=== PATIENT | female | born 1945 | race Caucasian/White ===

== ENCOUNTER → 2017-11-15 | Outpatient (CLI) | payer MEDICARE, OTHER ==
--- NOTE | 2017-11-15 13:42 | CT ---
EXAMINATION TYPE: CT brain wo/w con DATE OF EXAM: 11/15/2017 COMPARISON: NONE HISTORY: Patient complains of headaches. Syncope CT DLP: 2027 mGycm Automated Exposure Control for Dose Reduction was Utilized. TECHNIQUE: CT scan of the head is performed with IV contrast.,CT scan of the head is performed withou t and with with IV Contrast, patient injected with 80 mL of Isovue 300. FINDINGS: Noncontrast images show no acute intracranial hemorrhage or midline shift. Right frontal bony exostoses versus densely calcified, less likely extra-axial small meningioma is seen on the righ t in the extradural space on series 4 and series 3 image 38 measuring 7 mm. On noncontrast images there are patchy areas of hypoattenuation within the subcortical periventricula r white matter. There is also symmetric prominence of the ventricular system and peripheral sulci mos t compatible with age-related volume loss. Small intrafalcine lipoma is seen anteriorly. No evidence of acute infarct or midline shift is noted. Prominent perivascular spaces are seen at the level of th e inferior basal ganglia. On enhanced images there is subtle enhancement of the right frontal lobe on series 7 image 26 measuri ng 4 mm that may relate to apposition of adjacent odom matter or subcortical lesion. MRI is recommend ed for further evaluation. Within the remainder of the brain parenchyma no suspicious abnormal intrac ranial enhancement is seen. Minimal mucosal thickening is seen within the ethmoid sinuses. The globes are intact and the remaining visualized sinuses are clear. IMPRESSION: 1. No evidence of acute intracranial hemorrhage, midline shift or mass effect. 2. Punctate 4 mm focus of enhancement within the right frontal lobe that could be artifact related to apposition of adjacent odom matter or could relate to subcortical lesion therefore enhanced MRI is r ecommended for further evaluation. 3. Nonspecific white matter change, most commonly related to sequela of microangiopathy.
== END | disposition home or self-care (01) ==
LOC: RADCTMAIN 12:03
PROVIDERS: ATTEND Family Medicine
DX: R94.02 Abnormal brain scan (principal); R90.89 Other abnormal findings on diagnostic imaging of central nervous system; R55 Syncope and collapse
CPT/HCPCS: 82565; 84520; 70470; 36415; Q9967

== ENCOUNTER → 2017-12-11 | Outpatient (CLI) | payer MEDICARE, OTHER ==
--- NOTE | 2017-12-11 12:56 | MR ---
EXAMINATION TYPE: MR brain wo/w con DATE OF EXAM: 12/11/2017 COMPARISON: NONE HISTORY: Syncope, falling, headaches TECHNIQUE: Multiplanar, multisequence images of the brain and brainstem is performed without and with IV contras t, utilizing 9 mL intravenous Gadavist . FINDINGS: Diffusion weighted images demonstrate no evidence of a recent infarct or other diffusion ab normality. No midline shift. No enhancing mass. There are a few scattered areas of abnormal signal the white mat ter which are nonspecific. Changes of chronic sinusitis noted. Midline structures demonstrate normal morphology. The craniocerv ical junction appears within normal limits. Post contrast images demonstrate no abnormal enhancement . The dural venous sinuses appear patent. IMPRESSION: 1. Very mild nonspecific white matter changes most likely the basis of remote microvascular ischemia.
== END ==
LOC: RADMRIMAIN 11:15
PROVIDERS: ATTEND Family Medicine
DX: R90.82 White matter disease, unspecified (principal); R55 Syncope and collapse; R51 Headache
CPT/HCPCS: 82565; 84520; 70553; 36415; A9581

== ENCOUNTER → 2018-03-28 | Outpatient (CLI) | payer MEDICARE, OTHER ==
--- NOTE | 2018-03-29 13:15 | US ---
EXAMINATION TYPE: US transvaginal DATE OF EXAM: 03/28/2018 COMPARISON: NONE CLINICAL HISTORY: N93.9 VAGINAL BLEEDING. Off and on 1 year pt age 72 not able to see well, lots of bowel peristalsis limited visualization of pelvis structures TECHNIQUE: Transvaginal (TV). Date of LMP: pt age 72, years ago EXAM MEASUREMENTS: Uterus: 3.3 x 1.4 x 2.5 cm Endometrial Stripe: 0.9 cm Right Ovary: not seen Left Ovary: not seen 1. Uterus: Anteverted Obscured by overlying bowel gas 2. Endometrium: thick 3. Right Ovary: Obscured by overlying bowel gas 4. Left Ovary: Obscured by overlying bowel gas 5. Bilateral Adnexa: Obscured by overlying bowel gas 6. Posterior cul-de-sac: wnl IMPRESSION: Exam is limited. Suspect thickened endometrial stripe. Recommend CORK WIRER consult. A Yellow level critical message alert has been initiated for Osvaldo Sue DO via the [employer] Critical Results System on 03/29/2018 1:12 PM. This message alert has been sent to Osvaldo schulte DO via the preferences provided by the clinician for the receipt of Radiology Critical Findings. Message ID [id number].
== END | disposition home or self-care (01) ==
LOC: RADUSWWP 16:51
PROVIDERS: ATTEND Family Medicine
DX: N93.9 Abnormal uterine and vaginal bleeding, unspecified (principal)
CPT/HCPCS: 76830

== ENCOUNTER → 2019-02-06 | Outpatient (CLI) | payer MEDICARE, OTHER ==
--- NOTE | 2019-02-06 12:19 | XR ---
EXAMINATION TYPE: XR foot complete LT DATE OF EXAM: 02/06/2019 COMPARISON: NONE HISTORY: Pain TECHNIQUE: Three views are submitted. FINDINGS: There is diffuse osteopenia with an intra-articular displaced fracture proximal phalanx first digit. Fracture involving the neck of the second metatarsal distally noted. Remote fracture involving the fo urth metatarsal. Surgical change involving the fibula. Calcaneal spur noted. Arthropathy of all DIP a nd PIP and MTP joints. IMPRESSION: 1. Intra-articular displaced fracture proximal phalanx first digit. 2. Suspect a fracture at the neck of the distal second metatarsal.
--- NOTE | 2019-02-06 12:20 | XR ---
EXAMINATION TYPE: XR ankle complete LT DATE OF EXAM: 02/06/2019 COMPARISON: NONE HISTORY: Pain FINDINGS: Three views of the ankle demonstrate the ankle mortise to be symmetric and slightly narrowed along th e lateral compartment. Postsurgical change involving the fibula. Multiple well-corticated osseous den sities are seen adjacent to the medial and lateral malleolus suggestive of remote trauma. There are c alcaneal spurs. Soft tissue edema noted. IMPRESSION: 1. No definite acute fracture or dislocation, if symptoms persist follow-up study in 7 to 10 days wou ld be suggested.
== END ==
LOC: RADXRMAIN 11:53
PROVIDERS: ATTEND Family Medicine
DX: S92.412A Displaced fracture of proximal phalanx of left great toe, initial encounter for closed fracture (principal); M79.672 Pain in left foot

== ENCOUNTER 2020-02-24 10:33 | Emergency (ER) | payer MEDICARE, OTHER ==
--- NOTE | 2020-02-24 11:20 | ED ---
Fall HPI - General Chief Complaint: Fall Stated Complaint: Fall Arm/Head pain Time Seen by Provider: 02/24/20 10:48 Source: patient, RN notes reviewed, old records reviewed Mode of arrival: ambulatory - History of Present Illness Initial Comments: Patient is a 74-year-old female who presents emergency room today for concern for falls. Patient reportedly had a fall while walking to the bathroom 3 weeks ago. She reports that she tripped over her feet she does have a history of flat feet and wears leg braces and hit her head on the corner of a cabinet. Patient states she did have a good state after. No immediate loss of consciousness. She does report some occasional blurry vision since that time. Patient is not on blood thinners. Patient states that she also tripped this week walking to the bathroom and landed on her right arm. She has contusion over the right forearm. She denies any pain with range of motion. Again she is on a blood thinning medication. - Related Data Home Medications Medication Instructions Recorded Confirmed Furosemide [Lasix] 20 mg PO DAILY 01/07/14 01/07/14 Insulin Detemir [Levemir Flexpen] 40 unit SQ DAILY 01/07/14 01/07/14 amLODIPine BESYLATE/BENAZEPRIL 1 each PO DAILY 01/07/14 01/07/14 [Lotrel 10-20 mg Capsule] glipiZIDE [Glucotrol XL] 5 mg PO BID 01/07/14 01/07/14 glipiZIDE [Glucotrol XL] 10 mg PO BID 01/07/14 01/07/14 sitaGLIPtin PHOS/metFORMIN HCL 1 each PO DAILY 01/07/14 01/07/14 [Janumet 50-1,000 mg Tablet] Allergies Allergy/AdvReac Type Severity Reaction Status Date / Time No Known Allergies Allergy Verified 02/24/20 10:43 Review of Systems ROS Statement: Those systems with pertinent positive or pertinent negative responses have been documented in the HPI. ROS Other: All systems not noted in ROS Statement are negative. Past Medical History Past Medical History: Diabetes Mellitus, Hypertension History of Any Multi-Drug Resistant Organisms: ESBL Date of last positivie culture/infection: 03/27/19 MDRO Source:: ESBL URINE Past Surgical History: Appendectomy, Cholecystectomy, Orthopedic Surgery Past Psychological History: No Psychological Hx Reported Smoking Status: Never smoker Past Alcohol Use History: None Reported Past Drug Use History: None Reported General Exam Limitations: no limitations General appearance: alert, in no apparent distress Head exam: Present: atraumatic, normocephalic, normal inspection Eye exam: Present: normal appearance, PERRL, EOMI. Absent: scleral icterus, conjunctival injection, periorbital swelling ENT exam: Present: normal exam, mucous membranes moist Neck exam: Present: normal inspection. Absent: tenderness, meningismus, lymphadenopathy Respiratory exam: Present: normal lung sounds bilaterally. Absent: respiratory distress, wheezes, rales, rhonchi, stridor Cardiovascular Exam: Present: regular rate, normal rhythm, normal heart sounds. Absent: systolic murmur, diastolic murmur, rubs, gallop, clicks GI/Abdominal exam: Present: soft, normal bowel sounds. Absent: distended, tenderness, guarding, rebound, rigid Extremities exam: Present: normal inspection, full ROM, normal capillary refill, other (hematoma over R ulna, midshaft. Full ROM and sensation distally ). Absent: tenderness, pedal edema, joint swelling, calf tenderness Back exam: Present: normal inspection Neurological exam: Present: alert Psychiatric exam: Present: normal affect, normal mood Skin exam: Present: warm Course Vital Signs 02/24/20 02/24/20 10:38 12:34 Temperature 98.2 F 98.0 F Pulse Rate 75 73 Respiratory 18 19 Rate Blood Pressure 155/84 172/79 O2 Sat by Pulse 97 98 Oximetry Medical Decision Making - Medical Decision Making 74-year-old female presents for times a day for even offered for falls. She wears leg braces trips and falls. She fell last week on her right forearm. Has contusion but no evidence of fracture on x-ray. She has full range of motion. She has fell 3 weeks ago and Hit her head. This CT brain was negative for any acute intracranial process. Patient follow up with PCP and orthopedic regards to leg brace fitting. All questions answered. - Radiology Data Radiology results: report reviewed no Acute fracture of the radius or ulna. CT shows no acute intracranial hemorrhage or midline shift. [id number] diffuse her much because ISCHEMIC change. No change in 2018 study. Disposition Clinical Impression: Fall, Contusion of right forearm, Minor head injury Disposition: HOME SELF-CARE Condition: Good Instructions (If sedation given, give patient instructions): Fall Prevention for Older Adults (ED) Additional Instructions: Please use medication as discussed. Please follow up with family doctor if symptoms have not improved over the next two days. Please return to the emergency room if your symptoms increase or worsen or for any other concerns. Is patient prescribed a controlled substance at d/c from ED?: No Referrals: Osvaldo Sue DO [Primary Care Provider] - 1-2 days Time of Disposition: 12:24
--- NOTE | 2020-02-24 11:43 | CT ---
EXAMINATION TYPE: CT brain wo con DATE OF EXAM: 02/24/2020 HISTORY: Fall 2 weeks ago with injury and now headache. CT DLP: 1099.4 mGycm. Automated Exposure Control for Dose Reduction was Utilized. TECHNIQUE: CT scan of the head is performed without contrast. COMPARISON: CT brain November 15, 2017. FINDINGS: There is no acute intracranial hemorrhage or midline shift identified. There is diffuse v entricular and sulcal prominence consistent with diffuse age-related cerebral atrophy. There is low- attenuation in the periventricular white matter consistent with chronic small vessel ischemic change. Some mucosal thickening and a few scattered tiny polyps throughout the posterior ethmoid and left sp henoid sinus are redemonstrated. The calvarium is intact. Globes remain intact bilaterally. IMPRESSION: No acute intracranial hemorrhage or midline shift. There is mild to moderate diffuse ce rebral atrophy and chronic small vessel ischemic change redemonstrated. No significant change from 2 018 study.
--- NOTE | 2020-02-24 11:55 | XR ---
EXAMINATION TYPE: XR forearm RT DATE OF EXAM: 02/24/2020 CLINICAL HISTORY: Fall injury with pain. TECHNIQUE: Two views of the right forearm are obtained. COMPARISON: None. FINDINGS: Osseous structures are demineralized. There is no acute fracture or dislocation seen in th e right radius or ulna. The right elbow and wrist joints appear within normal limits. The overlying soft tissue appears within normal limits. IMPRESSION: There is no acute fracture or dislocation seen in the right radius or ulna.
[2020-02-24 12:35] VITALS: BP 172/79; PULSE 73; RESP 19; TEMP 98
== END 2020-02-24 12:35 | disposition home or self-care (01) ==
LOC: EC 10:33
DX: S09.90XA Unspecified injury of head, initial encounter (principal); S50.11XA Contusion of right forearm, initial encounter; E11.9 Type 2 diabetes mellitus without complications; I10 Essential (primary) hypertension; Z79.4 Long term (current) use of insulin; Z79.899 Other long term (current) drug therapy; W01.198A Fall on same level from slipping, tripping and stumbling with subsequent striking against other object, initial encounter; Y93.01 Activity, walking, marching and hiking; Y92.002 Bathroom of unspecified non-institutional (private) residence as the place of occurrence of the external cause
CPT/HCPCS: 70450; 99284

== ENCOUNTER 2020-08-25 09:37 | Day surgery (SDC) | payer MEDICARE, OTHER ==
[2020-08-20 09:52] VITALS: BMI 37.8
[~2020-08-25 09:37] MED LIST: DEXAMETHASONE SOD PHOSPHATE 4 MG/ML 1 ML VIAL IV ONE; FAMOTIDINE 20 MG/2 ML VIAL IV PRN; HYDROmorphone 0.5 MG/0.5 ML SYRINGE IVP PRN; LACTATED RINGERS 1,000 ML IV SCH; LIDOCAINE 1% (10MG/ML) FOR IV START INTRADERMA PRN; ONDANSETRON 4 MG/2 ML VIAL IVP ONE; ONDANSETRON 4 MG/2 ML VIAL IVP PRN
[2020-08-25 10:47] LABS: Glucose,Whole Blood 202 mg/dL (75-99)
[2020-08-25 10:55] VITALS: TEMP 98
[2020-08-25] MEDS ORDERED: LIDOCAINE 1% INJ 10MG/ML (20 ML MDV) ONE (11:20)
[2020-08-25] MEDS ORDERED: fentaNYL (PF) 50 MCG/ML 2 ML AMP ONE (11:20)
[2020-08-25] MEDS ORDERED: KETAMINE 10 MG/ML 20 ML VIAL ONE (11:20)
[2020-08-25] MEDS ORDERED: MIDAZOLAM 2 MG/2 ML VIAL ONE (11:20)
[2020-08-25] MEDS ORDERED: PROPOFOL 10 MG/ML 20 ML VIAL IV ONE (11:20)
[2020-08-25] MEDS ORDERED: LIDOCAINE 1%-EPI 1:100,000 20 ML VIAL SQ ONE (11:34)
[2020-08-25] MEDS ORDERED: BACITRACIN ZINC 500 UNIT/GM OINT 28.4 GM TUBE TOPICAL ONE (12:48)
--- NOTE | 2020-08-25 13:03 | P.OP ---
Date of Procedure: 08/25/20 Preoperative Diagnosis: Basal Cell carcinoma left lower lip Postoperative Diagnosis: Same Procedure(s) Performed: Excision basal cell carcinoma left lower lip 2.3 x 1.6 cm Local flap reconstruction left lower lip cutaneous defect 3.1 x 1.8 cm primary defect and 3.3 x 2.0 cm secondary defect Anesthesia: [place] Surgeon: Bennett Worley Estimated Blood Loss (ml): 3 Pathology: other (Left lower lip lesion) Condition: stable Disposition: PACU Indications for Procedure: This 75-year-old white female with a slowly enlarging left lower lip lesion. This had punch biopsy which showed basal cell carcinoma. Operative Findings: Approximately 16 x 18 mm cutaneous left lower lip lesion which is raised and nodular light pink-initial frozen section was positive at the deep and inferior margin and therefore additional permanent section was taken in this area as well as was close it the superior deep margin and therefore additional suture was taken also for permanent section Description of Procedure: The patient was brought in the operative suite and placed in a supine position. Patient underwent induction of IV sedation by the information technology teacher after appropriate monitors were placed. Patient was prepped and draped in usual aseptic fashion. 1% lidocaine with [id number] epinephrine was infused subcutaneously in field block fashion. This allowed to work for 7 minutes vasoconstrictive effect. The lesion was excised grossly entirely with frozen section margins sent and returned as above and therefore additional margins were taken as noted above. Hemostasis was gained with electrocautery. The defect required local flap reconstruction which was a modification of a rhomboid flap based inferiorly and laterally which was raised in the same plane as the defect down to the muscular layer and rotated and advanced into position and the primary and secondary defects were then closed with inverted interrupted 400 and 5-0 Vicryl suture in the deep tissue plane and subcutaneous layers and then skin was approximated with simple interrupted and running locking 5-0 Prolene suture. Bacitracin ointment and a sterile dressing were placed. The flap had excellent capillary refill. The patient was allowed to emerge from anesthesia having tolerated procedure well and was transferred to the postop recovery area in satisfactory condition.
[2020-08-25 13:23] VITALS: RESP 16
[2020-08-25 13:39] VITALS: BP 154/70; PULSE 75
== END 2020-08-25 13:59 | disposition home or self-care (01) ==
LOC: OR 09:37
PROVIDERS: ATTEND Otolaryngology
DX: C44.01 Basal cell carcinoma of skin of lip (principal); E11.9 Type 2 diabetes mellitus without complications; Z98.890 Other specified postprocedural states; Z88.2 Allergy status to sulfonamides; Z79.84 Long term (current) use of oral hypoglycemic drugs; Z79.899 Other long term (current) drug therapy; Z88.8 Allergy status to other drugs, medicaments and biological substances; I10 Essential (primary) hypertension; M19.90 Unspecified osteoarthritis, unspecified site; K21.9 Gastro-esophageal reflux disease without esophagitis; Z79.1 Long term (current) use of non-steroidal anti-inflammatories (NSAID)
CPT/HCPCS: 88305; 88331; 88332; 14061; J2250; J1100; J2405; J0690; J2001; J3010; J2704

== ENCOUNTER 2020-11-20 15:18 | Emergency (ER) | payer MEDICARE, OTHER ==
[2020-11-20 15:24] VITALS: PULSE 81; TEMP 97.9
--- NOTE | 2020-11-20 16:22 | US ---
EXAMINATION TYPE: US venous doppler duplex LE RT DATE OF EXAM: 11/20/2020 4:11 PM COMPARISON: NONE CLINICAL HISTORY: right calf pain x 4 days. Right lateral LE pain x 4 days; patient denies surgery or trauma to leg. SIDE PERFORMED: right TECHNIQUE: The lower extremity deep venous system is examined utilizing real time linear array sonog kirby with graded compression, doppler sonography and color-flow sonography. VESSELS IMAGED: Common Femoral Vein Deep Femoral Vein Greater Saphenous Vein * Femoral Vein Popliteal Vein Small Saphenous Vein * Proximal Calf Veins (* superficial vessels) Right Leg: Negative for DVT IMPRESSION: No evidence of right lower extremity DVT.
--- NOTE | 2020-11-20 16:33 | ED ---
Lower Extremity Injury HPI - General Chief Complaint: Extremity Injury, Lower Stated Complaint: R Leg Pain Time Seen by Provider: 11/20/20 15:31 Source: patient Mode of arrival: wheelchair Limitations: no limitations - History of Present Illness Initial Comments: 75-year-old female presented today from the chief complaint of right lower leg pain. Reports the symptoms began about 4 days ago and are persisting. Reports most of the pain is located along the lateral aspect of the right calf. States that she had a lump recently in the region which has since resolved. Patient reports that she wears braces on both of her feet due to neuropathy. Denies any injuries to the leg. Denies unilateral leg swelling chest pain or shortness of breath. No history of DVT or PE. Denies any weakness in the symptomatic leg - Related Data Home Medications Medication Instructions Recorded Confirmed amLODIPine BESYLATE/BENAZEPRIL 1 each PO BID 01/07/14 08/20/20 [Lotrel 10-20 mg Capsule] Ibuprofen 800 mg PO Q8H PRN 08/20/20 08/20/20 Janumet(Dose Unknown) 1 tab PO DAILY 08/20/20 08/20/20 Allergies Allergy/AdvReac Type Severity Reaction Status Date / Time glipizide Allergy Itching/ban Verified 11/20/20 15:23 h Sulfa (Sulfonamide Allergy Itching Verified 11/20/20 15:23 Antibiotics) Review of Systems ROS Statement: Those systems with pertinent positive or pertinent negative responses have been documented in the HPI. ROS Other: All systems not noted in ROS Statement are negative. Past Medical History Past Medical History: Cancer, Diabetes Mellitus, GERD/Reflux, Hypertension, Osteoarthritis (OA) Additional Past Medical History / Comment(s): Current skin cancer on lower lip. constipation, frequent falls due to "weak legs" History of Any Multi-Drug Resistant Organisms: MRSA Date of last positivie culture/infection: 2015 MDRO Source:: Back Past Surgical History: Appendectomy, Cholecystectomy, Orthopedic Surgery Additional Past Surgical History / Comment(s): ORIF left ankle, matteo carpal tunnel, matteo cataracts Past Anesthesia/Blood Transfusion Reactions: No Reported Reaction Past Psychological History: No Psychological Hx Reported Smoking Status: Never smoker Past Alcohol Use History: None Reported Past Drug Use History: None Reported - Past Family History Father Family Medical History: Cancer Brother(s) Family Medical History: Cancer Sister(s) Family Medical History: Cancer Daughter(s) Family Medical History: Cancer General Exam Limitations: no limitations General appearance: alert, in no apparent distress Head exam: Present: atraumatic, normocephalic, normal inspection Eye exam: Present: normal appearance, PERRL, EOMI Pupils: Present: normal accommodation ENT exam: Present: normal exam, normal oropharynx, mucous membranes moist, TM's normal bilaterally, normal external ear exam Neck exam: Present: normal inspection, full ROM. Absent: tenderness Respiratory exam: Present: normal lung sounds bilaterally. Absent: respiratory distress, wheezes Cardiovascular Exam: Present: regular rate, normal rhythm, normal heart sounds. Absent: systolic murmur Extremities exam: Present: normal inspection, full ROM, tenderness (Mild tenderness along the lateral aspect of her right lower leg), normal capillary refill, other (palpable DP and PT bilaterally). Absent: pedal edema, joint swelling, calf tenderness Back exam: Present: normal inspection, full ROM. Absent: tenderness, CVA tenderness (R), CVA tenderness (L) Neurological exam: Present: alert, oriented X3 Psychiatric exam: Present: normal affect, normal mood Skin exam: Present: warm, dry, intact, normal color Course Vital Signs 11/20/20 15:20 Temperature 97.9 F Pulse Rate 81 Respiratory 20 Rate Blood Pressure 184/75 O2 Sat by Pulse 99 Oximetry Medical Decision Making - Medical Decision Making 75-year-old female presents to emergency department with a chief complaint of right lower leg pain. On physical examination, tenderness over the lateral aspect of her right calf. Otherwise neurovascularly intact. She wears braces to ambulate secondary to neuropathy bilaterally. Ultrasound performed shows no signs of a DVT. Patient advised to follow-up with an operations support specialist. Return parameters discussed with patient resulting agreeable. Case discussed with physician. Disposition Clinical Impression: Pain in right lower leg Disposition: HOME SELF-CARE Condition: Stable Instructions (If sedation given, give patient instructions): Leg Pain (ED) Additional Instructions: Please return to the Emergency Department if symptoms worsen or any other concerns. Follow-up with operations support specialist Is patient prescribed a controlled substance at d/c from ED?: No Referrals: Osvaldo Sue DO [Primary Care Provider] - 1-2 days Cheng Siddiqui DO [Doctor of Osteopathic Medicine] - 1-2 days Time of Disposition: 16:32
[2020-11-20 16:57] VITALS: BP 140/74; RESP 18
== END 2020-11-20 16:58 | disposition home or self-care (01) ==
LOC: EC 15:18
DX: M79.661 Pain in right lower leg (principal); E11.36 Type 2 diabetes mellitus with diabetic cataract; E11.40 Type 2 diabetes mellitus with diabetic neuropathy, unspecified; I10 Essential (primary) hypertension; K21.9 Gastro-esophageal reflux disease without esophagitis; M19.90 Unspecified osteoarthritis, unspecified site; Z79.84 Long term (current) use of oral hypoglycemic drugs; Z85.828 Personal history of other malignant neoplasm of skin; Z88.2 Allergy status to sulfonamides
CPT/HCPCS: 99283

== ENCOUNTER → 2021-05-18 | Outpatient (CLI) | payer MEDICARE, OTHER ==
--- NOTE | 2021-05-18 11:43 | XR ---
EXAMINATION TYPE: XR lumbosacral spine min 4V DATE OF EXAM: 05/18/2021 CLINICAL HISTORY: Low back pain with leg weakness. TECHNIQUE: Frontal, lateral, and oblique images of the lumbar spine are obtained. COMPARISON: None FINDINGS: There are 5 lumbar type vertebral bodies identified. The lumbar spine shows satisfactory alignment without evidence of acute fracture or dislocation. Mild disc space narrowing L2-L3 level ot herwise Vertebral body heights and disk space heights are within normal limits. Moderate multilevel anterior and lateral spurring. Poor positioning on oblique images makes these suboptimal. The overl brian soft tissue appears unremarkable. IMPRESSION: As above.
== END | disposition home or self-care (01) ==
LOC: RADXRMAIN 10:59
PROVIDERS: ATTEND Family Medicine
DX: M54.50 Low back pain, unspecified (principal); R29.898 Other symptoms and signs involving the musculoskeletal system
CPT/HCPCS: 72110

== ENCOUNTER → 2022-02-15 | Outpatient (CLI) | payer MEDICARE, OTHER ==
--- NOTE | 2022-02-15 12:33 | CT ---
EXAMINATION TYPE: CT pelvis wo con DATE OF EXAM: 02/15/2022 COMPARISON: None HISTORY: Pt is having vaginal bleeding, unknown cause CT DLP: 1416.4 mGycm Automated exposure control for dose reduction was used. FINDINGS: Portions of the right kidneys have a normal appearance. Atherosclerotic change of the visualized aort a without aneurysm. Bowel gas pattern nonspecific with no obstruction. Retained fecal debris noted. U terus is noted and appears to be of normal size. There is mild prominence of the right adnexal soft t issue nodule which may be ovarian. Bladder has a normal appearance. Hypertrophic and degenerative angelica nge of the spine. Arthropathy of the hips. No pathologic adenopathy. IMPRESSION: UTERUS APPEARS PRESENT. THERE MAY BE MILD PROMINENCE OF THE RIGHT ADNEXAL SOFT TISSUE NODULE WHICH MA Y REPRESENT OVARIAN TISSUE. THIS IS ASYMMETRIC. A PELVIC ULTRASOUND RECOMMENDED FOR FURTHER EVALUATIO N TO ASSESS THE ADNEXA AND ENDOMETRIUM.
== END | disposition home or self-care (01) ==
LOC: RADCTMAIN 10:03
PROVIDERS: ATTEND Family Medicine
DX: N92.0 Excessive and frequent menstruation with regular cycle (principal)
CPT/HCPCS: 72192; Q9967

== ENCOUNTER → 2022-03-21 | Outpatient (CLI) | payer MEDICARE, OTHER ==
--- NOTE | 2022-03-21 11:46 | US ---
EXAMINATION TYPE: US pelvic complete DATE OF EXAM: 03/21/2022 COMPARISON: CT pelvis 02/15/2022. CLINICAL HISTORY: N83.0 FOLLICULAR CYST OF OVARY, UNSPECIFIED SIDE. Right adnexal prominence visualiz ed on recent CT Postmenopausal bleeding TECHNIQUE: . Transabdominal sonographic images of the pelvis were acquired. Transvaginal sonographi c images were medically necessary to better assess the following anatomy: Date of LMP: Postmenopausal EXAM MEASUREMENTS: Uterus: 4.9 x 1.9 x 2.6 cm Endometrial Stripe: 0.48 cm Right Ovary: 1.9 x 1.3 x 1.8 cm Left Ovary: Not visualized 1. Uterus: Heterogeneous without definite masses. 2. Endometrium: Trace fluid seen with fundal endometrium 3. Right Ovary: Limited visualization however no definite mass seen 4. Left Ovary: Not visualized 5. Bilateral Adnexa: wnl 6. Posterior cul-de-sac: wnl IMPRESSION: 1. No evidence of acute process. 2. Endometrium within normal limits for thickness. 3. Limited evaluation of the ovaries no mass or cyst identified. When compared to prior CT the ovari es look to be within normal limits on prior imaging.
== END | disposition home or self-care (01) ==
LOC: RADUSWWP 10:51
PROVIDERS: ATTEND Family Medicine
DX: N83.01 Follicular cyst of right ovary (principal)
CPT/HCPCS: 76856

== ENCOUNTER → 2023-07-26 | Outpatient (CLI) | payer MEDICARE, OTHER ==
--- NOTE | 2023-07-26 16:20 | US ---
EXAMINATION TYPE: US venous doppler duplex LE BI DATE OF EXAM: 07/26/2023 4:07 PM COMPARISON: 11/20/2020. CLINICAL INDICATION: Female, 78 years old with history of R79.1 ABNORMAL COAGULATION PROFILE; elevate d D dimer SIDE PERFORMED: Bilateral TECHNIQUE: The lower extremity deep venous system is examined utilizing real time linear array sonog kirby with graded compression, doppler sonography and color-flow sonography. VESSELS IMAGED: Common Femoral Vein Deep Femoral Vein Greater Saphenous Vein * Femoral Vein Popliteal Vein Small Saphenous Vein * Proximal Calf Veins (* superficial vessels) Right Leg: Negative for DVT Left Leg: Negative for DVT IMPRESSION: Grayscale, color doppler, spectral doppler imaging performed of the deep veins of the lo wer extremities. There is normal flow, compressibility, vascular waveforms.
== END | disposition home or self-care (01) ==
LOC: RADUSWWP 15:46
PROVIDERS: ATTEND Family Medicine
DX: R79.1 Abnormal coagulation profile (principal)
CPT/HCPCS: 93970

== ENCOUNTER → 2023-07-30 | Outpatient (CLI) | payer MEDICARE, OTHER ==
--- NOTE | 2023-07-30 15:59 | XR ---
EXAMINATION TYPE: XR foot complete LT DATE OF EXAM: 07/30/2023 COMPARISON: 02/06/2019 HISTORY: Left foot pain from fall TECHNIQUE: 3 view left foot FINDINGS: Hallux valgus deformity is present. Structures are osteoporotic. Old fracture appears to be at the distal fourth metatarsal present previously. Old distal second metatarsal fracture also prese nt. Soft tissue swelling is over the dorsum of the distal foot. Plantar calcaneal heel spur is present No acute fractures are identified. Joint spaces are diffusely narrowed. IMPRESSION: 1. No acute fractures identified. Structures are osteoporotic and occult nondisplaced fractures may be difficult to detect. Follow-up can be performed 7-10 days from acute trauma for continued pain. 2. Old distal metatarsal fractures. 3. Distal dorsal soft tissue swelling.
== END | disposition home or self-care (01) ==
LOC: RADXRMAIN 15:06
PROVIDERS: ATTEND Family Medicine
DX: M79.89 Other specified soft tissue disorders (principal); S92.355A Nondisplaced fracture of fifth metatarsal bone, left foot, initial encounter for closed fracture; W19.XXXA Unspecified fall, initial encounter

== ENCOUNTER → 2024-03-27 | Outpatient (CLI) | payer MEDICARE, OTHER ==
--- NOTE | 2024-03-27 19:42 | CA ---
Transthoracic Echo Report Name: Jessica Joyner Age: 78 Gender: F : 1945 Exam Date: 03/27/2024 14:41 Exam Location: [facility] Ht (in): 61 Wt (lb): 230 Ordering Physician: Osvaldo Sue DO Attending/Referring Phys: Hairspring Setter Lisa Otero RDCS Procedure CPT: Indications: I50.9 heart failure Cardiac Hx: Technical Quality: Fair Contrast 1: Total Dose (mL): Contrast 2: Total Dose (mL): MEASUREMENTS (Male / Female) Normal Values 2D ECHO LV Diastolic Diameter PLAX 5.3 cm 4.2 - 5.9 / 3.9 - 5.3 cm LV Systolic Diameter PLAX 3.1 cm IVS Diastolic Thickness 1.0 cm 0.6 - 1.0 / 0.6 - 0.9 cm LVPW Diastolic Thickness 1.2 cm 0.6 - 1.0 / 0.6 - 0.9 cm LV Relative Wall Thickness 0.4 RV Internal Dim ED PLAX 1.7 cm LA Systolic Diameter LX 4.5 cm 3.0 - 4.0 / 2.7 - 3.8 cm LV Diastolic Volume MOD BP 68.5 cm??? 67 - 155 / 56 - 104 cm??? LV Systolic Volume MOD BP 38.2 cm??? 22 - 58 / 19 - 49 cm??? LV Ejection Fraction MOD BP 44.2 % >= 55 % LV Cardiac Index MOD BP 1053.7 cm???/min???m??? LV Diastolic Volume MOD 4C 70.1 cm??? LV Systolic Volume MOD 4C 37.6 cm??? LV Ejection Fraction MOD 4C 46.4 % LV Cardiac Index MOD 4C 1132.5 cm???/min???m??? LV Diastolic Length 4C 7.8 cm LV Systolic Length 4C 6.9 cm LV Diastolic Volume MOD 2C 66.7 cm??? LV Systolic Volume MOD 2C 35.4 cm??? LV Ejection Fraction MOD 2C 46.9 % LV Cardiac Index MOD 2C 1091.0 cm???/min???m??? LV Diastolic Length 2C 7.7 cm LV Systolic Length 2C 6.2 cm M-MODE Aortic Root Diameter MM 2.7 cm LA Systolic Diameter MM 4.6 cm LA Ao Ratio MM 1.7 AV Cusp Separation MM 1.5 cm DOPPLER AV Peak Velocity 243.1 cm/s AV Peak Gradient 23.6 mmHg AV Mean Velocity 172.7 cm/s AV Mean Gradient 13.1 mmHg AV Velocity Time Integral 66.1 cm LVOT Peak Velocity 103.8 cm/s LVOT Peak Gradient 4.3 mmHg LVOT Velocity Time Integral 30.6 cm Mitral E Point Velocity 151.6 cm/s Mitral A Point Velocity 132.2 cm/s Mitral E to A Ratio 1.1 MV Deceleration Time 305.8 ms MV E' Velocity 5.3 cm/s Mitral E to MV E' Ratio 28.5 TR Peak Velocity 356.8 cm/s TR Peak Gradient 50.9 mmHg FINDINGS Left Ventricle Left ventricular ejection fraction is estimated at 50 %. Mildly increased septal wall thickness. Mildly increased posterior wall thickness. Mildly reduced global left ventricular systolic function. No obvious regional wall motion abnormalities. Right Ventricle Normal right ventricular size and function. Moderate pulmonary hypertension. Right Atrium Moderate right atrial dilatation. Left Atrium Moderately increased left atrial diameter. Mitral Valve Structurally normal mitral valve. Mitral annular calcification. Moderate mitral regurgitation. Aortic Valve Trileaflet aortic valve. Mild aortic stenosis with a peak gradient of 24 mmHg and a mean gradient of 13mmHg. Tricuspid Valve Structurally normal tricuspid valve. [id number] tricuspid regurgitation. No tricuspid stenosis. Pulmonic Valve Structurally normal pulmonic valve. Trace pulmonic regurgitation. No pulmonic stenosis. Pericardium Minimal pericardial effusion (normal variant). Large left pleural effusion. Aorta Normal size aortic root and proximal ascending aorta. CONCLUSIONS Diagnosis shortness of breath on exertion, congestive heart failure Mild LVH with left ventricular systolic function at the lower limits of normal of 50% Normal RV size and function Biatrial enlargement Mild aortic stenosis 2+ tricuspid regurgitation 2+ mitral regurgitation Very large pleural effusion noted as an incidental extracardiac finding Previewed by: Dr. Didier Green MD (Electronically Signed) Final Date: 27 March 2024 19:41
== END | disposition home or self-care (01) ==
LOC: RADECHMAIN 14:04
PROVIDERS: ATTEND Family Medicine
DX: I50.9 Heart failure, unspecified
CPT/HCPCS: 93306

== ENCOUNTER 2024-04-16 18:29 | Inpatient (IN) | payer MEDICARE, OTHER ==
--- NOTE | 2024-04-16 18:53 | ED ---
Extremity Problem HPI - General Chief complaint: Extremity Problem,Nontraumatic Stated complaint: leg swelling Time Seen by Provider: 04/16/24 18:51 Source: patient, family (Daughter and granddaughter), RN notes reviewed Mode of arrival: EMS Limitations: no limitations - History of Present Illness Initial comments: 79-year-old female presenting to the ER via EMS with a chief complaint of bilateral lower extremity edema. Daughter is providing majority of HPI. Daughter states for the past couple of weeks she has been noticing an increase in lower extremity edema that started to be today bringing them to the ER. Patient has been complaining of exertional dyspnea and orthopnea as well. Patient does not wear nasal cannula oxygen at home. Daughter states they recently underwent an echocardiogram to evaluate heart failure. Patient is prescribed furosemide 20 mg daily but daughter is unsure of how regularly patient is taking this medication. No history of blood clots or recent travel. Patient denying any current pain. Patient denying any chest pain, shortness of breath, abdominal pain, constipation/diarrhea, urinary complaints. No fevers. - Related Data Home Medications Medication Instructions Recorded Confirmed amLODIPine BESYLATE/BENAZEPRIL 1 cap PO DAILY 01/07/14 04/16/24 [Lotrel 10-20 mg Capsule] Furosemide [Lasix] 20 mg PO DAILY 04/16/24 04/16/24 Linagliptin/Metformin HCl 1 tab PO DAILY 04/16/24 04/16/24 [Jentadueto 2.5 mg-1000 mg Tab] Pioglitazone [Actos] 30 mg PO DAILY 04/16/24 04/16/24 Allergies Allergy/AdvReac Type Severity Reaction Status Date / Time glipizide Allergy Itching/ban Verified 04/16/24 20:27 h Sulfa (Sulfonamide Allergy Itching Verified 04/16/24 20:27 Antibiotics) Review of Systems ROS Statement: Those systems with pertinent positive or pertinent negative responses have been documented in the HPI. ROS Other: All systems not noted in ROS Statement are negative. Past Medical History Past Medical History: Cancer, Diabetes Mellitus, GERD/Reflux, Hypertension, Osteoarthritis (OA) Additional Past Medical History / Comment(s): Current skin cancer on lower lip. constipation, frequent falls due to "weak legs" History of Any Multi-Drug Resistant Organisms: MRSA Date of last positivie culture/infection: 2015 MDRO Source:: Back Past Surgical History: Appendectomy, Cholecystectomy, Orthopedic Surgery Additional Past Surgical History / Comment(s): ORIF left ankle, matteo carpal tunnel, matteo cataracts Past Anesthesia/Blood Transfusion Reactions: No Reported Reaction Past Psychological History: No Psychological Hx Reported Smoking Status: Never smoker Past Alcohol Use History: None Reported Past Drug Use History: None Reported - Past Family History Father Family Medical History: Cancer Brother(s) Family Medical History: Cancer Sister(s) Family Medical History: Cancer Daughter(s) Family Medical History: Cancer General Exam Limitations: no limitations General appearance: alert, in no apparent distress Respiratory exam: Present: rhonchi (lower). Absent: respiratory distress, wheezes, rales, stridor Cardiovascular Exam: Present: normal rhythm, bradycardia, normal heart sounds GI/Abdominal exam: Present: soft, normal bowel sounds. Absent: distended, tenderness, guarding, rebound, rigid Extremities exam: Present: pedal edema (2+ bilaterally) Neurological exam: Present: alert Skin exam: Present: warm, dry, intact, normal color. Absent: rash Course Vital Signs 04/16/24 18:33 Temperature 97.8 F Pulse Rate 55 L Respiratory 20 Rate Blood Pressure 150/69 O2 Sat by Pulse 94 L Oximetry - Reevaluation(s) Reevaluation #1: 04/16/24 20:40 Case discussed with [facility], Dr. Reaves for admission. Medical Decision Making - Medical Decision Making Was pt. sent in by a medical professional or institution (, PA, MECHANICAL MAINTENANCE TECHNICIAN, urgent care, hospital, or long term...) When possible be specific @ -No Did you speak to anyone other than the patient for history (EMS, parent, family, police, friend...)? What history was obtained from this source @ -Daughter providing HPI and past medical history. Did you review nursing and triage notes (agree or disagree)? Why? @ -I reviewed and agree with nursing and triage notes Were old charts reviewed (outside hosp., previous admission, EMS record, old EKG, old radiological studies, urgent care reports/EKG's, long term records)? Report findings @ -Yes, I reviewed echocardiogram from 03-31-2024 showing 44% ejection fraction. Differential Diagnosis (chest pain, altered mental status, abdominal pain women, abdominal pain men, vaginal bleeding, weakness, fever, dyspnea, syncope, headache, dizziness, GI bleed, back pain, seizure, CVA, palpatations, mental health, musculoskeletal)? @ -Differential Dyspnea:Coronary syndrome, arrhythmia, tamponade, asthma, COPD, pulmonary embolism, pneumonia, pneumothorax, pulmonary effusion, anaphylaxis, diabetic ketoacidosis, flailed chest, pulmonary contusion, diaphragmatic rupture, anemia, neuromuscular, this is not meant to be an all-inclusive list. EKG interpreted by me (3pts min.). @ -As above X-rays interpreted by me (1pt min.). @ -CXR some cardiomegaly and pulmonary vascular congestion with bilateral pleural effusions. CT interpreted by me (1pt min.). @ -None done U/S interpreted by me (1pt. min.). @ -None done What testing was considered but not performed or refused? (CT, X-rays, U/S, labs)? Why? @ -None What meds were considered but not given or refused? Why? @ -None Did you discuss the management of the patient with other professionals (professionals i.e. , PA, MECHANICAL MAINTENANCE TECHNICIAN, lab, RT, psych nurse, social group worker, embedded systems developer, teacher, philanthropy officer, bilingual patient support caseworker)? Give summary @ -Yes, case discussed with [facility], Dr. Reaves for admission. Was smoking cessation discussed for >3mins.? @ -No Was critical care preformed (if so, how long)? @ -No Were there social determinants of health that impacted care today? How? (Homelessness, low income, unemployed, alcoholism, drug addiction, transportation, low edu. Level, literacy, decrease access to med. care, custodial, rehab)? @ -No Was there de-escalation of care discussed even if they declined (Discuss DNR or withdrawal of care, Hospice)? DNR status @ -No What co-morbidities impacted this encounter? (DM, HTN, Smoking, COPD, CAD, Cancer, CVA, ARF, Chemo, Hep., AIDS, mental health diagnosis, sleep apnea, morbid obesity)? @ -Diabetes mellitus, hypertension, kidney disease, heart failure Was patient admitted / discharged? Hospital course, mention meds given and route, prescriptions, significant lab abnormalities, going to OR and other pertinent info. @ -Admitted. 79-year-old female presented to ER with a chief complaint of bilateral lower extremity edema. History and physical exam completed. Vitals upon arrival stable. Patient in no signs of acute distress. 2+ pitting LE edema to bilateral lower extremities. Laboratory studies obtained showing a chronic normocytic normochromic anemia hemoglobin 9.1 likely from CKD. BECCA showing a BUN of 44, creatinine 2.07 with a GFR 22. BNP 2440. Chest x-ray showing cardiomegaly with pulmonary vascular congestion with bilateral pleural effusions. Urinalysis pending on admission. Admission considered and discussed with [facility], Dr. Reaves for IV diuretics and cardiology consult for heart failure. Patient started on IV Lasix. Cardiology on consult. IV fluids held due to fluid overload. Upon reevaluation, patient resting comfortably in exam room no signs of acute distress. Patient denying any current pain. Results discussed with patient and family, at bedside, all questions answered. Patient agreeable for admission. Admitted in stable condition. Case discussed with ED attending, Dr. Marie. Undiagnosed new problem with uncertain prognosis? @ -No Drug Therapy requiring intensive monitoring for toxicity (Heparin, Nitro, Insulin, Cardizem)? @ -No Were any procedures done? @ -No Diagnosis/symptom? @ -Heart failure/BECCA Acute, or Chronic, or Acute on Chronic? @ -Acute Uncomplicated (without systemic symptoms) or Complicated (systemic symptoms)? @ -Complicated Side effects of treatment? @ -No Exacerbation, Progression, or Severe Exacerbation? @ -No Poses a threat to life or bodily function? How? (Chest pain, USA, RI, pneumonia, PE, COPD, DKA, ARF, appy, cholecystitis, CVA, Diverticulitis, Homicidal, Suicidal, threat to staff... and all critical care pts) @ -Yes, fluid overload can lead to hypoxia. - Lab Data Result diagrams: 04/16/24 19:22 04/16/24 19:22 Lab Results 04/16/24 04/16/24 Range/Units 19:22 19:22 WBC 6.0 (3.8-10.6) k/uL RBC 3.07 L (3.80-5.40) m/uL Hgb 9.1 L (11.4-16.0) gm/dL Hct 29.6 L (34.0-46.0) % MCV 96.1 (80.0-100.0) fL MCH 29.7 (25.0-35.0) pg MCHC 30.9 L (31.0-37.0) g/dL RDW 17.6 H (11.5-15.5) % Plt Count 147 L (150-450) k/uL MPV 8.7 Neutrophils % 84 % Lymphocytes % 9 % Monocytes % 5 % Eosinophils % 1 % Basophils % 0 % Neutrophils # 5.0 (1.3-7.7) k/uL Lymphocytes # 0.5 L (1.0-4.8) k/uL Monocytes # 0.3 (0-1.0) k/uL Eosinophils # 0.0 (0-0.7) k/uL Basophils # 0.0 (0-0.2) k/uL Hypochromasia Marked Anisocytosis Slight Macrocytosis Slight Sodium 143 (137-145) mmol/L Potassium 4.0 (3.5-5.1) mmol/L Chloride 116 H (98-107) mmol/L Carbon Dioxide 22 (22-30) mmol/L Anion Gap 5 mmol/L BUN 44 H (7-17) mg/dL Creatinine 2.07 H (0.52-1.04) mg/dL Est GFR (CKD-EPI)AfAm 26 (>60 ml/min/1.73 sqM) Est GFR (CKD-EPI)NonAf 22 (>60 ml/min/1.73 sqM) Glucose 102 H (74-99) mg/dL Calcium 8.4 (8.4-10.2) mg/dL Total Bilirubin 0.4 (0.2-1.3) mg/dL AST 38 H (14-36) U/L ALT 17 (4-34) U/L Alkaline Phosphatase 73 (38-126) U/L NT-Pro-B Natriuret Pep 2440 pg/mL Total Protein 5.6 L (6.3-8.2) g/dL Albumin 2.9 L (3.5-5.0) g/dL - EKG Data -: EKG Interpreted by Me EKG Comments: EKG taken at 19: 22 showing a sinus bradycardia. No acute ST segment or T wave abnormalities. Ventricular rate 53, NE interval 141, QRS duration 110, QT/QTc 464/447. - Radiology Data Radiology results: report reviewed, image reviewed Disposition Clinical Impression: Heart failure, BECCA (acute kidney injury) Disposition: ADMITTED IP TO THIS HOSP Condition: Stable Referrals: Osvaldo Sue DO [Primary Care Provider] - 1-2 days Time of Disposition: 20:40
[2024-04-16 19:31] LABS: Anisocytosis Slight; Basophils % (A) 0 %; Eosinophils % (A) 1 %; HCT 29.6 % (34.0-46.0); HGB 9.1 gm/dL (11.4-16.0); Hypochromasia Marked; Lymphocytes # (A) 0.5 k/uL (1.0-4.8); Lymphocytes % (A) 9 %; MCH 29.7 pg (25.0-35.0); MCHC 30.9 g/dL (31.0-37.0); MCV 96.1 fL (80.0-100.0); Macrocytosis Slight; Mean Platelet Volume 8.7; Monocytes # (A) 0.3 k/uL (0-1.0); Monocytes % (A) 5 %; Neutrophils % (A) 84 %; Platelet Count 147 k/uL (150-450); RBC 3.07 m/uL (3.80-5.40); RDW 17.6 % (11.5-15.5)
--- NOTE | 2024-04-16 19:45 | XR ---
EXAMINATION TYPE: XR chest 2V DATE OF EXAM: 04/16/2024 7:39 PM CLINICAL INDICATION: Female, 79 years old with history of matteo LE edema; PHH COMPARISON: None TECHNIQUE: XR chest 2V Frontal view of the chest. FINDINGS: Lungs/Pleura: No evidence of focal consolidation or pneumothorax. Blunting of the costophrenic angles is present. Pulmonary vascularity: Pulmonary vascular congestion. Heart/mediastinum: Cardiomediastinal silhouette is enlarged. Musculoskeletal: No acute osseous pathology. IMPRESSION: Cardiomegaly, pulmonary vascular congestion and bilateral pleural effusions. Correlate with BNP for c ongestive heart failure. [facility], , 04/16/2024 7:42 PM
[2024-04-16 19:59] LABS: ALT 17 U/L (4-34); AST 38 U/L (14-36); African American GFR (CKD) 26 (>60 ml/min/1.73 sqM); Albumin 2.9 g/dL (3.5-5.0); Alkaline Phosphatase 73 U/L (38-126); Anion Gap 5 mmol/L; Blood Urea Nitrogen 44 mg/dL (7-17); Calcium 8.4 mg/dL (8.4-10.2); Carbon Dioxide 22 mmol/L (22-30); Chloride 116 mmol/L (98-107); Glucose 102 mg/dL (74-99); Non-African American GFR(CKD) 22 (>60 ml/min/1.73 sqM); Sodium 143 mmol/L (137-145); Total Bilirubin 0.4 mg/dL (0.2-1.3); Total Protein 5.6 g/dL (6.3-8.2)
[2024-04-16 20:06] LABS: NT-Pro-B-Type Natriuretic Pept 2440 pg/mL
[2024-04-16] MEDS ORDERED: ONDANSETRON 4 MG/2 ML VIAL IVP PRN (20:37)
[2024-04-16] MEDS ORDERED: NALOXONE 0.4 MG/ML 1 ML VIAL IV PRN (20:37)
[2024-04-16] MEDS: FUROSEMIDE 10 MG/ML 4 ML VIAL IV STA (21:40)
[2024-04-17] MEDS: hydrALAZINE HCL 25 MG TAB PO SCH (09:44)
[2024-04-17] MEDS: HEPARIN SODIUM,PORCINE 5,000 UNIT/ML 1 ML VIAL SQ SCH (09:44)
[2024-04-17] MEDS: amLODIPine 10 MG TAB PO SCH (09:44)
[2024-04-17] MEDS: FAMOTIDINE 20 MG/2 ML VIAL IV SCH (09:44)
[2024-04-17] MEDS: FUROSEMIDE 10 MG/ML 4 ML VIAL IV SCH (09:44)
--- NOTE | 2024-04-17 09:56 | P.HPIM ---
History of Present Illness This is a pleasant 79 years old female from home with past medical history of diabetes mellitus, hypertension, chronic kidney disease stage III. PCP is Dr. Sue, risk compliance analyst is Dr. Aguilar Presents because of worsening bilateral leg swelling. Patient usually on diuretic at home but she is not very compliant with taking it all the time. Recently has been complaining from worsening with swelling in her legs, she has difficulty raising them up, at baseline she walks for short distance but over the last week she had difficulty walking and staying in bed most of the time. She complains also from dyspnea with no significant chest pain or coughing. She also has some urgency with urination but no dysuria. She feels that the lightheadedness but no headache weakness or numbness She has no history of smoking or drinking alcohol, no drugs. She is saturating well on room air, she is afebrile. Hemoglobin at baseline 9.1, with baseline 9-10. Platelet count slightly low at 147 Creatinine 2.0 slightly worse than last time 1.7 about 1 month ago. Rest of basic metabolic panel, liver enzymes, proBNP is elevated to 440. EKG showing sinus bradycardia at [address]-T changes Chest x-ray showing cardiomegaly with pulmonary vascular congestion and bilateral pleural effusion proBNP is elevated to 440. Ejection fraction from 03/21/2024 is about 50% Review of Systems Review of systems CONSTITUTIONAL: No fever, no malaise, no fatigue. HEENT: No recent visual problems or hearing problems. Denied any sore throat. CARDIOVASCULAR: No orthopnea, PND, no palpitations, no syncope. PULMONARY: no cough, no hemoptysis. GASTROINTESTINAL: No diarrhea, no nausea, no vomiting, no abdominal pain. Normoactive bowel sounds. NEUROLOGICAL: No headaches, no weakness, no numbness. HEMATOLOGICAL: Denies any bleeding or petechiae. GENITOURINARY: Denies any burning micturition, frequency, or urgency. MUSCULOSKELETAL/RHEUMATOLOGICAL: Denies any joint pain, swelling, or any muscle pain. ENDOCRINE: Denies any polyuria or polydipsia. Past Medical History Past Medical History: Cancer, Diabetes Mellitus, GERD/Reflux, Hypertension, Osteoarthritis (OA) Additional Past Medical History / Comment(s): Current skin cancer on lower lip. constipation, frequent falls due to "weak legs" History of Any Multi-Drug Resistant Organisms: MRSA Date of last positivie culture/infection: 2016 MDRO Source:: Back Past Surgical History: Appendectomy, Cholecystectomy, Orthopedic Surgery Additional Past Surgical History / Comment(s): ORIF left ankle, matteo carpal tunnel, matteo cataracts Past Anesthesia/Blood Transfusion Reactions: No Reported Reaction Past Psychological History: No Psychological Hx Reported Smoking Status: Never smoker Past Alcohol Use History: None Reported Past Drug Use History: None Reported - Past Family History Father Family Medical History: Cancer Brother(s) Family Medical History: Cancer Sister(s) Family Medical History: Cancer Daughter(s) Family Medical History: Cancer Medications and Allergies Home Medications Medication Instructions Recorded Confirmed Type amLODIPine BESYLATE/BENAZEPRIL 1 cap PO DAILY 01/07/14 04/16/24 History [Lotrel 10-20 mg Capsule] Furosemide [Lasix] 20 mg PO DAILY 04/16/24 04/16/24 History Linagliptin/Metformin HCl 1 tab PO DAILY 04/16/24 04/16/24 History [Jentadueto 2.5 mg-1000 mg Tab] Pioglitazone [Actos] 30 mg PO DAILY 04/16/24 04/16/24 History Allergies Allergy/AdvReac Type Severity Reaction Status Date / Time glipizide Allergy Itching/ban Verified 04/16/24 20:27 h Sulfa (Sulfonamide Allergy Itching Verified 04/16/24 20:27 Antibiotics) Physical Exam Vitals: Vital Signs Temp Pulse Pulse Resp BP BP Pulse Ox 04/17/24 08:00 59 L 20 167/74 94 L 04/17/24 03:59 58 L 18 163/72 96 04/16/24 23:19 60 18 158/70 96 04/16/24 22:02 98.0 F 53 L 20 160/72 96 04/16/24 21:56 60 18 142/87 96 04/16/24 18:33 97.8 F 55 L 20 150/69 94 L Intake and Output 04/16/24 04/17/24 04/17/24 22:59 06:59 14:59 Intake Total 540 Output Total 150 450 Balance 390 -450 Intake: Oral 540 Output: Urine 150 450 Other: Voiding Method External Catheter External Catheter Weight 95.254 kg 75.5 kg GENERAL: The patient is alert and oriented x3, not in any acute distress. Well developed, well nourished. HEENT: Pupils are round and equally reacting to light. EOMI. No scleral icterus. No conjunctival pallor. Normocephalic, atraumatic. No pharyngeal erythema. No thyromegaly. CARDIOVASCULAR: S1 and S2 present. No murmurs, rubs, or gallops. PULMONARY: Chest is clear to auscultation, no wheezing , no crackles. ABDOMEN: Soft, nontender, nondistended, normoactive bowel sounds. No palpable organomegaly. MUSCULOSKELETAL: No joint swelling or deformity. -EXTREMITIES: No cyanosis, clubbing, bilateral pitting leg edema 3+ NEUROLOGICAL: Gross neurological examination did not reveal any focal deficits. SKIN: No rashes. no petechiae. Results CBC & Chem 7: 04/16/24 19:22 04/16/24 19:22 Labs: Abnormal Lab Results - Last 24 Hours (Table) 04/16/24 04/16/24 Range/Units 19:22 19:22 RBC 3.07 L (3.80-5.40) m/uL Hgb 9.1 L (11.4-16.0) gm/dL Hct 29.6 L (34.0-46.0) % MCHC 30.9 L (31.0-37.0) g/dL RDW 17.6 H (11.5-15.5) % Plt Count 147 L (150-450) k/uL Lymphocytes # 0.5 L (1.0-4.8) k/uL Chloride 116 H (98-107) mmol/L BUN 44 H (7-17) mg/dL Creatinine 2.07 H (0.52-1.04) mg/dL Glucose 102 H (74-99) mg/dL AST 38 H (14-36) U/L Total Protein 5.6 L (6.3-8.2) g/dL Albumin 2.9 L (3.5-5.0) g/dL Thrombosis Risk Factor Assmnt - Choose All That Apply Each Factor Represents 1 point: Obesity (BMI >25), Swollen legs (current) Each Risk Factor Represents 3 Points: Age 75 years or older Thrombosis Risk Factor Assessment Total Risk Factor Score: 5 Thrombosis Risk Factor Assessment Level: High Risk Assessment and Plan Assessment: Acute congestive heart failure with preserved ejection fraction Bilateral leg swelling secondary to above Chronic normal Citic anemia Acute kidney injury on CKD stage III Plan: Start patient on IV Lasix 40 mg twice daily Check ultrasound of the legs Cardiology team consulted Physical therapy evaluation check ua and bladder scan Labs and medication were reviewed.. Continue same treatment. Continue with symptomatic treatment. Resume home medication. Monitor labs and vitals. DVT and GI prophylaxis. Further recommendations as per clinical course of the patient DVT prophylaxis: Subcutaneous heparin GI Prophylaxis: Pepcid PT/OT: Pending Prognosis is guarded
[2024-04-17 10:29] LABS: Appearance,Urine Clear (Clear); Bacteria,Urine Many /hpf; Bilirubin,Urine Negative (Negative); Blood,Urine Trace (Negative); Color,Urine Colorless; Glucose,Urine (UA) Negative (Negative); Ketones,Urine Negative (Negative); Leukocyte Esterase,Urine Moderate (Negative); Nitrite,Urine Positive (Negative); PH, Urine 5.5 (5.0-8.0); Protein,Urine 2+ (Negative); RBC,Urine 3 /hpf (0-5); Specific Gravity,Urine 1.008 (1.001-1.035); Squamous Epithelial Cell,Urine <1 /hpf (0-4); Urobilinogen,Urine <2.0 mg/dL (<2.0); WBC,Urine 70 /hpf (0-5)
--- NOTE | 2024-04-17 10:45 | P.CRDCN ---
History of Present Illness History of present illness: HISTORY OF PRESENT ILLNESS: This is a 79-year-old female with a past medical history significant for diabetes, congestive heart failure, and hypertension. Patient does not follow with a clinical rehabilitation coordinator. We have been asked to see the patient in consultation for congestive heart failure. Patient examined at the bedside. Patient states that she lives at home with her daughter. She states that she has been feeling very weak recently. She states on Sunday she experienced a fall at home. The fall appears to be mechanical with no loss of consciousness. She reports increased lower extremity edema. She currently denies any chest pain or pressure. The patient does report a history of congestive heart failure. She is prescribed Lasix 20 mg daily on an outpatient basis. DIAGNOSTICS: - EKG reveals sinus bradycardia with no signs of acute ischemia - Chest xray cardiomegaly, pulmonary vascular congestion, bilateral pleural effusions - Laboratory data: WBC 6.0. Hemoglobin 9.1. Platelet count 147. Sodium 143. Potassium 4.0. BUN 44. Creatinine 2.07. proBNP 2440. - Current home cardiac medications include amlodipine/benazepril 10-20 mg daily and Lasix 20 mg daily - Most recent echocardiogram obtained in March 2024 revealing ejection fraction of 50%, no obvious regional wall motion abnormalities, moderate pulmonary hypertension, moderate mitral regurgitation, mild aortic stenosis, mild to moderate tricuspid regurgitation - Cardiac catheterization history: Patient denies REVIEW OF SYSTEMS: At the time of my exam: CONSTITUTIONAL: Denies fever or chills. HEENT: Denies blurred vision, vision changes, or eye pain. Denies hemoptysis CARDIOVASCULAR: Denies chest pain. Denies orthopnea. Denies PND. Denies palpitations RESPIRATORY: Denies shortness of breath. GASTROINTESTINAL: Denies abdominal pain. Denies nausea or vomiting. HEMATOLOGIC: Denies bleeding disorders. GENITOURINARY: Denies any blood in urine. SKIN: Denies pruitis. Denies rash. PHYSICAL EXAM: VITAL SIGNS: Reviewed. GENERAL: Well-developed in no acute distress. HEENT: Head is normocephalic. Pupils are equal, round. Sclerae anicteric. Mucous membranes of the mouth are moist. Neck supple. No JVD or thyromegaly LUNGS: Respirations even and unlabored. Lungs essentially clear to auscultation bilaterally. HEART: Regular rate and rhythm. S1 and S2 heard. Systolic murmur noted. ABDOMEN: Soft. Nondistended. Nontender. EXTREMITIES: Normal range of motion. No clubbing or cyanosis. Peripheral pulses intact. Bilateral lower extremity edema with superficial wounds/scratches on left leg NEUROLOGIC: Awake and alert. Oriented x 3. ASSESSMENT: Generalized weakness with recent mechanical fall Acute on chronic heart failure with preserved EF, 50% Acute kidney injury Hypertension Diabetes Obesity: BMI 31.4 Moderate pulmonary hypertension Valvular heart disease including moderate MR, mild , and mild to moderate TR PLAN: No need to repeat echocardiogram as this was performed last month Continue IV Lasix 40 mg every 12 hours Daily weights, accurate intake and output, and monitoring of kidney function Hold benazepril secondary to BECCA. Resume amlodipine 10 mg daily. Add hydralazine 25 mg 3 times daily for optimal blood pressure control Further recommendations pending patient course Nurse practitioner note has been reviewed by physician. Signing provider agrees with the documented findings, assessment, and plan of care documented by HOTEL SERVER as a scribe. Past Medical History Past Medical History: Cancer, Diabetes Mellitus, GERD/Reflux, Hypertension, Osteoarthritis (OA) Additional Past Medical History / Comment(s): Current skin cancer on lower lip. constipation, frequent falls due to "weak legs" History of Any Multi-Drug Resistant Organisms: MRSA Date of last positivie culture/infection: 2015 MDRO Source:: Back Past Surgical History: Appendectomy, Cholecystectomy, Orthopedic Surgery Additional Past Surgical History / Comment(s): ORIF left ankle, matteo carpal tunnel, matteo cataracts Past Anesthesia/Blood Transfusion Reactions: No Reported Reaction Past Psychological History: No Psychological Hx Reported Smoking Status: Never smoker Past Alcohol Use History: None Reported Past Drug Use History: None Reported - Past Family History Father Family Medical History: Cancer Brother(s) Family Medical History: Cancer Sister(s) Family Medical History: Cancer Daughter(s) Family Medical History: Cancer Medications and Allergies Home Medications Medication Instructions Recorded Confirmed Type amLODIPine BESYLATE/BENAZEPRIL 1 cap PO DAILY 01/07/14 04/16/24 History [Lotrel 10-20 mg Capsule] Furosemide [Lasix] 20 mg PO DAILY 04/16/24 04/16/24 History Linagliptin/Metformin HCl 1 tab PO DAILY 04/16/24 04/16/24 History [Jentadueto 2.5 mg-1000 mg Tab] Pioglitazone [Actos] 30 mg PO DAILY 04/16/24 04/16/24 History Allergies Allergy/AdvReac Type Severity Reaction Status Date / Time glipizide Allergy Itching/ban Verified 04/16/24 20:27 h Sulfa (Sulfonamide Allergy Itching Verified 04/16/24 20:27 Antibiotics) Physical Exam Vitals: Vital Signs Temp Pulse Pulse Resp BP BP Pulse Ox 04/17/24 08:00 59 L 20 167/74 94 L 04/17/24 03:59 58 L 18 163/72 96 04/16/24 23:19 60 18 158/70 96 04/16/24 22:02 98.0 F 53 L 20 160/72 96 04/16/24 21:56 60 18 142/87 96 04/16/24 18:33 97.8 F 55 L 20 150/69 94 L Intake and Output 04/16/24 04/17/24 04/17/24 22:59 06:59 14:59 Intake Total 540 118 Output Total 150 450 Balance 390 -332 Intake: Oral 540 118 Output: Urine 150 450 Other: Voiding Method External Catheter External Catheter Weight 95.254 kg 75.5 kg Results 04/16/24 19:22 04/16/24 19:22 Cardiac Enzymes 04/16/24 Range/Units 19:22 AST 38 H (14-36) U/L CBC 04/16/24 Range/Units 19:22 WBC 6.0 (3.8-10.6) k/uL RBC 3.07 L (3.80-5.40) m/uL Hgb 9.1 L (11.4-16.0) gm/dL Hct 29.6 L (34.0-46.0) % Plt Count 147 L (150-450) k/uL Comprehensive Metabolic Panel 04/16/24 Range/Units 19:22 Sodium 143 (137-145) mmol/L Potassium 4.0 (3.5-5.1) mmol/L Chloride 116 H (98-107) mmol/L Carbon Dioxide 22 (22-30) mmol/L BUN 44 H (7-17) mg/dL Creatinine 2.07 H (0.52-1.04) mg/dL Glucose 102 H (74-99) mg/dL Calcium 8.4 (8.4-10.2) mg/dL AST 38 H (14-36) U/L ALT 17 (4-34) U/L Alkaline Phosphatase 73 (38-126) U/L Total Protein 5.6 L (6.3-8.2) g/dL Albumin 2.9 L (3.5-5.0) g/dL Current Medications Generic Name Dose Route Start Last Admin Trade Name Freq PRN Reason Stop Dose Admin Acetaminophen 650 mg 04/16/24 20:37 Acetaminophen Tab 325 Mg Tab PO Q6HR PRN Mild Pain or Fever > 100.5 Amlodipine Besylate 10 mg 04/17/24 09:00 04/17/24 09:44 Amlodipine 10 Mg Tab PO 10 mg DAILY ZAK Administration Famotidine 20 mg 04/17/24 09:00 04/17/24 09:44 Famotidine 20 Mg/2 Ml Vial IV 20 mg Q12HR ZAK Administration Furosemide 40 mg 04/17/24 09:00 04/17/24 09:44 Furosemide 10 Mg/Ml 4 Ml Vial IV 40 mg Q12HR ZAK Administration Heparin Sodium (Porcine) 5,000 unit 04/17/24 09:00 04/17/24 09:44 Heparin Sodium,Porcine 5,000 Unit/Ml 1 Ml Vial SQ 5,000 unit Q12HR ZAK Administration Hydralazine HCl 25 mg 04/17/24 09:00 04/17/24 09:44 Hydralazine Hcl 25 Mg Tab PO 25 mg TID ZAK Administration Naloxone HCl 0.2 mg 04/16/24 20:37 Naloxone 0.4 Mg/Ml 1 Ml Vial IV Q2M PRN Opioid Reversal Ondansetron HCl 4 mg 04/16/24 20:37 Ondansetron 4 Mg/2 Ml Vial IVP Q8HR PRN Nausea And Vomiting Intake and Output 04/16/24 04/17/24 04/17/24 22:59 06:59 14:59 Intake Total 540 118 Output Total 150 450 Balance 390 -332 Intake: Oral 540 118 Output: Urine 150 450 Other: Voiding Method External Catheter External Catheter Weight 95.254 kg 75.5 kg 04/16/24 19:22 04/16/24 19:22
--- NOTE | 2024-04-17 10:52 | US ---
EXAMINATION TYPE: US venous doppler duplex LE BI DATE OF EXAM: 04/17/2024 10:40 AM COMPARISON: NONE CLINICAL INDICATION: Female, 79 years old with history of leg swelling; no h/o dvt, patent states she was not taking her water pills and legs have been swollen for months TECHNIQUE: The lower extremity deep venous system is examined utilizing real time linear array sonog kirby with graded compression, color doppler sonography, and spectral doppler. SIDE PERFORMED: Bilateral FINDINGS: VESSELS IMAGED: Common Femoral Vein Deep Femoral Vein Greater Saphenous Vein * Femoral Vein Popliteal Vein Small Saphenous Vein * Proximal Calf Veins (* superficial vessels) Limited study, patient severely swollen, unable to images vessels without color on, no compression performed Right Leg: Limited study was negative for DVT Left Leg: Limited study was negative for DVT Grayscale, color doppler, spectral doppler imaging performed of the deep veins of the lower extremiti es. IMPRESSION: No ultrasound evidence for deep venous thrombosis of either lower extremity. [facility], Workstation: IMANI 04/17/2024 10:50 AM
[2024-04-18 07:00] LABS: Anisocytosis Slight; Basophils % (A) 0 %; Eosinophils # (A) 0.1 k/uL (0-0.7); Eosinophils % (A) 3 %; HCT 28.4 % (34.0-46.0); HGB 8.8 gm/dL (11.4-16.0); Hypochromasia Marked; Lymphocytes % (A) 24 %; MCH 29.7 pg (25.0-35.0); MCHC 30.9 g/dL (31.0-37.0); MCV 96.3 fL (80.0-100.0); Macrocytosis Slight; Mean Platelet Volume 9.2; Monocytes # (A) 0.3 k/uL (0-1.0); Monocytes % (A) 6 %; Neutrophils # (A) 2.9 k/uL (1.3-7.7); Neutrophils % (A) 65 %; Platelet Count 130 k/uL (150-450); RBC 2.95 m/uL (3.80-5.40); RDW 17.7 % (11.5-15.5); WBC 4.4 k/uL (3.8-10.6)
[2024-04-18 07:16] LABS: African American GFR (CKD) 23 (>60 ml/min/1.73 sqM); Anion Gap 0 mmol/L; Blood Urea Nitrogen 43 mg/dL (7-17); Calcium 8.1 mg/dL (8.4-10.2); Carbon Dioxide 25 mmol/L (22-30); Chloride 115 mmol/L (98-107); Glucose 78 mg/dL (74-99); Non-African American GFR(CKD) 20 (>60 ml/min/1.73 sqM); Potassium 3.8 mmol/L (3.5-5.1); Sodium 140 mmol/L (137-145)
[2024-04-18] MEDS: FAMOTIDINE 20 MG TAB PO SCH (08:08)
[2024-04-18] MEDS: hydrALAZINE HCL 50 MG TAB PO SCH (09:19)
--- NOTE | 2024-04-18 10:10 | P.PN ---
Subjective This is a pleasant 79 years old female from home with past medical history of diabetes mellitus, hypertension, chronic kidney disease stage III. PCP is Dr. Sue, digital project manager is Dr. Aguilar Presents because of worsening bilateral leg swelling. Patient usually on diuretic at home but she is not very compliant with taking it all the time. Recently has been complaining from worsening with swelling in her legs, she has difficulty raising them up, at baseline she walks for short distance but over the last week she had difficulty walking and staying in bed most of the time. She complains also from dyspnea with no significant chest pain or coughing. She also has some urgency with urination but no dysuria. She feels that the lightheadedness but no headache weakness or numbness She has no history of smoking or drinking alcohol, no drugs. She is saturating well on room air, she is afebrile. Hemoglobin at baseline 9.1, with baseline 9-10. Platelet count slightly low at 147 Creatinine 2.0 slightly worse than last time 1.7 about 1 month ago. Rest of basic metabolic panel, liver enzymes, proBNP is elevated to 440. EKG showing sinus bradycardia at [address]-T changes Chest x-ray showing cardiomegaly with pulmonary vascular congestion and bilateral pleural effusion proBNP is elevated to 440. Ejection fraction from 03/21/2024 is about 50% 04/18/2024 Patient awake alert, no respiratory distress She still has extensive bilateral leg swelling. No evidence of cellulitis, ultrasound is negative for DVT. Suspected secondary to CHF with elevated proBNP. Patient was started on IV Lasix 40 mg twice daily. Ejection fraction on 03/2024 is 50% Creatinine monitored closely 2.0 up to 2.3 today. No evidence of urine retention. Urine analysis is reviewed looks concentrated sample patient with no dysuria Patient states she was able to walk few days ago but because of severe leg swelling she has difficulty now. Review of systems CONSTITUTIONAL: No fever, no malaise, no fatigue. HEENT: No recent visual problems or hearing problems. Denied any sore throat. CARDIOVASCULAR: No orthopnea, PND, no palpitations, no syncope. PULMONARY: No shortness of breath, no cough, no hemoptysis. GENITOURINARY: Denies any burning micturition, frequency, or urgency. MUSCULOSKELETAL/RHEUMATOLOGICAL: Denies any joint pain, swelling, or any muscle pain. ENDOCRINE: Denies any polyuria or polydipsia. Active Medications Generic Name Dose Route Start Last Admin Trade Name Freq PRN Reason Stop Dose Admin Acetaminophen 650 mg 04/16/24 20:37 Acetaminophen Tab 325 Mg Tab PO Q6HR PRN Mild Pain or Fever > 100.5 Amlodipine Besylate 10 mg 04/17/24 09:00 04/18/24 08:08 Amlodipine 10 Mg Tab PO 10 mg DAILY ZAK Administration Famotidine 20 mg 04/18/24 09:00 04/18/24 08:08 Famotidine 20 Mg Tab PO 20 mg DAILY ZAK Administration Furosemide 40 mg 04/17/24 09:00 04/18/24 08:08 Furosemide 10 Mg/Ml 4 Ml Vial IV 40 mg Q12HR ZAK Administration Heparin Sodium (Porcine) 5,000 unit 04/17/24 09:00 04/18/24 08:08 Heparin Sodium,Porcine 5,000 Unit/Ml 1 Ml Vial SQ 5,000 unit Q12HR ZAK Administration Hydralazine HCl 50 mg 04/18/24 09:00 04/18/24 09:19 Hydralazine Hcl 50 Mg Tab PO Not Given TID ZAK Naloxone HCl 0.2 mg 04/16/24 20:37 Naloxone 0.4 Mg/Ml 1 Ml Vial IV Q2M PRN Opioid Reversal Ondansetron HCl 4 mg 04/16/24 20:37 Ondansetron 4 Mg/2 Ml Vial IVP Q8HR PRN Nausea And Vomiting Objective - Vital Signs Vital signs: Vital Signs Temp 97.5 F L 04/18/24 07:56 Pulse 61 04/18/24 07:56 Resp 16 04/18/24 07:56 BP 178/73 04/18/24 07:56 Pulse Ox 95 04/18/24 07:56 FiO2 Intake & Output 04/17/24 04/18/24 04/18/24 18:59 06:59 18:59 Intake Total 354 Output Total 1400 775 Balance -1046 -775 Weight 77.5 kg Intake: Oral 354 Output: Urine 1400 775 Other: Voiding Method External Catheter External Catheter External Catheter # Bowel Movements 1 - Exam GENERAL: The patient is alert and oriented x3, not in any acute distress. Well developed, well nourished. HEENT: Pupils are round and equally reacting to light. EOMI. No scleral icterus. No conjunctival pallor. Normocephalic, atraumatic. No pharyngeal erythema. No thyromegaly. CARDIOVASCULAR: S1 and S2 present. No murmurs, rubs, or gallops. PULMONARY: Chest is clear to auscultation, no wheezing , no crackles. ABDOMEN: Soft, nontender, nondistended, normoactive bowel sounds. No palpable organomegaly. MUSCULOSKELETAL: No joint swelling or deformity. -EXTREMITIES: No cyanosis, clubbing, severe 3+ bilateral pitting leg edema NEUROLOGICAL: Gross neurological examination did not reveal any focal deficits. SKIN: No rashes. no petechiae. - Labs CBC & Chem 7: 04/18/24 06:14 04/18/24 06:14 Labs: Abnormal Lab Results - Last 24 Hours (Table) 04/17/24 04/18/24 04/18/24 Range/Units 10:10 06:14 06:14 RBC 2.95 L (3.80-5.40) m/uL Hgb 8.8 L (11.4-16.0) gm/dL Hct 28.4 L (34.0-46.0) % MCHC 30.9 L (31.0-37.0) g/dL RDW 17.7 H (11.5-15.5) % Plt Count 130 L (150-450) k/uL Chloride 115 H (98-107) mmol/L BUN 43 H (7-17) mg/dL Creatinine 2.25 H (0.52-1.04) mg/dL Calcium 8.1 L (8.4-10.2) mg/dL Urine Protein 2+ H (Negative) Urine Blood Trace H (Negative) Urine Nitrite Positive H (Negative) Ur Leukocyte Esterase Moderate H (Negative) Urine WBC 70 H (0-5) /hpf Urine Bacteria Many H (None) /hpf Assessment and Plan Assessment: Acute congestive heart failure with preserved ejection fraction Bilateral leg swelling secondary to above Chronic normal Citic anemia Acute kidney injury on CKD stage III Plan: Start patient on IV Lasix 40 mg twice daily Check ultrasound of the legs was negative for DVT Cardiology team consulted Follow-up nephrology team recommendation Physical therapy evaluation check ua: Concentrated sample and bladder scan, no evidence of retention Labs and medication were reviewed.. Continue same treatment. Continue with symptomatic treatment. Resume home medication. Monitor labs and vitals. DVT and GI prophylaxis. Further recommendations as per clinical course of the patient DVT prophylaxis: Subcutaneous heparin GI Prophylaxis: Pepcid PT/OT: Pending Prognosis is guarded
--- NOTE | 2024-04-18 12:01 | P.PN ---
Subjective HISTORY OF PRESENT ILLNESS: This is a 79-year-old female with a past medical history significant for diabetes, congestive heart failure, and hypertension. Patient does not follow with a fryer line helper. We have been asked to see the patient in consultation for congestive heart failure. Patient examined at the bedside. Patient states that she lives at home with her daughter. She states that she has been feeling very weak recently. She states on Sunday she experienced a fall at home. The fall appears to be mechanical with no loss of consciousness. She reports increased lower extremity edema. She currently denies any chest pain or pressure. The patient does report a history of congestive heart failure. She is prescribed Lasix 20 mg daily on an outpatient basis. DIAGNOSTICS: - EKG reveals sinus bradycardia with no signs of acute ischemia - Chest xray cardiomegaly, pulmonary vascular congestion, bilateral pleural effusions - Laboratory data: WBC 6.0. Hemoglobin 9.1. Platelet count 147. Sodium 143. Potassium 4.0. BUN 44. Creatinine 2.07. proBNP 2440. - Current home cardiac medications include amlodipine/benazepril 10-20 mg daily and Lasix 20 mg daily - Most recent echocardiogram obtained in March 2024 revealing ejection fraction of 50%, no obvious regional wall motion abnormalities, moderate pulmonary hypertension, moderate mitral regurgitation, mild aortic stenosis, mild to moderate tricuspid regurgitation - Cardiac catheterization history: Patient denies 04/18/2024 Patient examined this morning at the bedside. Patient currently denies chest pain or pressure. Denies any shortness of breath. She continues to have lower extremity edema. Creatinine remains elevated today 2.25. Patient's blood press ures remain elevated with a systolic between [id number]. PHYSICAL EXAM: VITAL SIGNS: Reviewed. GENERAL: Well-developed in no acute distress. HEENT: Head is normocephalic. Pupils are equal, round. Sclerae anicteric. Mucous membranes of the mouth are moist. Neck supple. No JVD or thyromegaly LUNGS: Respirations even and unlabored. Lungs essentially clear to auscultation bilaterally. HEART: Regular rate and rhythm. S1 and S2 heard. Systolic murmur noted. ABDOMEN: Soft. Nondistended. Nontender. EXTREMITIES: Normal range of motion. No clubbing or cyanosis. Peripheral pulses intact. Bilateral lower extremity edema with superficial wounds/scratches on left leg NEUROLOGIC: Awake and alert. Oriented x 3. ASSESSMENT: Generalized weakness with recent mechanical fall Acute on chronic heart failure with preserved EF, 50% Acute kidney injury Hypertension Diabetes Obesity: BMI 31.4 Moderate pulmonary hypertension Valvular heart disease including moderate MR, mild , and mild to moderate TR PLAN: No need to repeat echocardiogram as this was performed last month Continue IV Lasix 40 mg every 12 hours Daily weights, accurate intake and output, and monitoring of kidney function Hold benazepril secondary to BECCA. Continue amlodipine 10 mg daily. Increase hydralazine to 50 mg 3 times daily for optimal blood pressure control Consult nephrology for evaluation Further recommendations pending patient course Nurse practitioner note has been reviewed by physician. Signing provider agrees with the documented findings, assessment, and plan of care documented by JOCKEY ROOM CUSTODIAN as a scribe. Objective - Vital Signs Vital signs: Vital Signs Temp 97.5 F L 04/18/24 11:03 Pulse 64 04/18/24 11:03 Resp 17 04/18/24 11:03 BP 152/76 04/18/24 11:03 Pulse Ox 95 04/18/24 07:56 FiO2 Intake & Output 04/17/24 04/18/24 04/18/24 18:59 06:59 18:59 Intake Total 354 Output Total 1400 775 600 Balance -1046 -775 -600 Weight 77.5 kg Intake: Oral 354 Output: Urine 1400 775 600 Other: Voiding Method External Catheter External Catheter External Catheter # Bowel Movements 1 - Labs CBC & Chem 7: 04/18/24 06:14 04/18/24 06:14 Labs: Abnormal Lab Results - Last 24 Hours (Table) 04/18/24 04/18/24 Range/Units 06:14 06:14 RBC 2.95 L (3.80-5.40) m/uL Hgb 8.8 L (11.4-16.0) gm/dL Hct 28.4 L (34.0-46.0) % MCHC 30.9 L (31.0-37.0) g/dL RDW 17.7 H (11.5-15.5) % Plt Count 130 L (150-450) k/uL Chloride 115 H (98-107) mmol/L BUN 43 H (7-17) mg/dL Creatinine 2.25 H (0.52-1.04) mg/dL Calcium 8.1 L (8.4-10.2) mg/dL
[2024-04-19 06:59] LABS: African American GFR (CKD) 24 (>60 ml/min/1.73 sqM); Anion Gap 3 mmol/L; Blood Urea Nitrogen 48 mg/dL (7-17); Calcium 8.2 mg/dL (8.4-10.2); Carbon Dioxide 25 mmol/L (22-30); Chloride 112 mmol/L (98-107); Glucose 94 mg/dL (74-99); Non-African American GFR(CKD) 21 (>60 ml/min/1.73 sqM); Potassium 3.9 mmol/L (3.5-5.1); Sodium 140 mmol/L (137-145)
--- NOTE | 2024-04-19 12:16 | P.NPCON ---
History of Present Illness - Reason for Consult acute renal failure - History of Present Illness patient is a 79-year-old female with history of diabetes, CHF with preserved ejection fraction and hypertension. Patient is admitted to the hospital with history of worsening lower extremity swelling. She did complain of some shortness of breath as well. No significant history of kidney diseases. Serum creatinine was 2.0 on admission and increased to 2.25 today.. Maintained on VIJAYA inhibitor's, currently on hold. Chest x-ray shows pulmonary vascular congestion and cardiomegaly with bilateral pleural effusions. Patient is maintained on IV Lasix. She has an external catheter and 2175 mL of urine documented for 24 hours. No hypotension documented.. No complaints of nausea vomiting or abdominal pain Past Medical History Past Medical History: Cancer, Diabetes Mellitus, GERD/Reflux, Hypertension, Osteoarthritis (OA) Additional Past Medical History / Comment(s): Current skin cancer on lower lip. constipation, frequent falls due to "weak legs" History of Any Multi-Drug Resistant Organisms: MRSA Date of last positivie culture/infection: 2015 MDRO Source:: Back Past Surgical History: Appendectomy, Cholecystectomy, Orthopedic Surgery Additional Past Surgical History / Comment(s): ORIF left ankle, matteo carpal tunnel, matteo cataracts Past Anesthesia/Blood Transfusion Reactions: No Reported Reaction Past Psychological History: No Psychological Hx Reported Smoking Status: Never smoker Past Alcohol Use History: None Reported Past Drug Use History: None Reported - Past Family History Father Family Medical History: Cancer Brother(s) Family Medical History: Cancer Sister(s) Family Medical History: Cancer Daughter(s) Family Medical History: Cancer Medications and Allergies Home Medications Medication Instructions Recorded Confirmed Type amLODIPine BESYLATE/BENAZEPRIL 1 cap PO DAILY 01/07/14 04/16/24 History [Lotrel 10-20 mg Capsule] Furosemide [Lasix] 20 mg PO DAILY 04/16/24 04/16/24 History Linagliptin/Metformin HCl 1 tab PO DAILY 04/16/24 04/16/24 History [Jentadueto 2.5 mg-1000 mg Tab] Pioglitazone [Actos] 30 mg PO DAILY 04/16/24 04/16/24 History Allergies Allergy/AdvReac Type Severity Reaction Status Date / Time glipizide Allergy Itching/ban Verified 04/16/24 20:27 h Sulfa (Sulfonamide Allergy Itching Verified 04/16/24 20:27 Antibiotics) Physical Exam Vitals: Vital Signs Temp Pulse Resp BP Pulse Ox 04/19/24 12:00 97.2 F L 55 L 17 139/69 96 04/19/24 08:38 97.6 F 60 17 148/73 96 04/19/24 04:00 96.6 F L 54 L 19 150/73 97 04/19/24 02:00 48 L 17 04/19/24 00:00 96.7 F L 48 L 16 144/69 97 04/18/24 20:00 55 L 17 04/18/24 19:50 96.3 F L 55 L 16 157/71 98 04/18/24 15:34 96.8 F L 52 L 16 150/67 94 L Intake and Output 04/18/24 04/19/24 04/19/24 22:59 06:59 14:59 Intake Total 554 10 10 Output Total 650 300 400 Balance -96 -290 -390 Intake: IV 14 10 10 Invasive Line 1 14 10 10 Oral 540 Output: Urine 650 300 400 Other: Voiding Method External Catheter External Catheter External Catheter # Voids 1 # Bowel Movements 1 Weight 98.7 kg patient is awake, comfortable, no acute distress. Examination of the heart S1 and S2 Examination of the lungs bilateral breath sounds are heard Abdomen is soft nontender Examination of lower extremities shows edema 2-3+ bilaterally INSTALLER exam grossly intact Results - Lab Results Most recent lab results Calcium 8.2 mg/dL (8.4-10.2) L 04/19/24 05:40 04/18/24 06:14 04/19/24 05:40 Assessment and Plan Assessment: 1. Acute kidney injury cardiorenal. No urine retention noted. UA shows 2+ protein and trace blood and WBC 70. 2. Chronic kidney disease NKF stage IIIa with baseline creatinine about 1.2 mg/dL. Etiology is likely diabetic kidney disease and nephrosclerosis. 3. Acute on chronic CHF with preserved ejection fraction of 50% 4. Volume overload 5. Hypertension with CK D stage III a 6. Pyuria, asymptomatic 7. Anemia rule out iron deficiency Plan: continue with IV Lasix Check ultrasound of the kidneys Check iron profile Repeat labs in a.m. Accurate I's and O's Recommend to discontinue Norvasc given the significant lower extremity edema. Thank you for the consultation. We will continue to follow the patient with you during her hospitalization.
--- NOTE | 2024-04-19 12:19 | P.PN ---
Subjective Patient is seen for follow-up for acute kidney injury mostly cardiorenal. She is currently being diuresed for volume overload. No significant complaints today. Maintained on IV Lasix 24 hour urine output at 1550 mL. Serum creatinine 2.1 today. Objective - Vital Signs Vital signs: Vital Signs Temp 97.2 F L 04/19/24 12:00 Pulse 55 L 04/19/24 12:00 Resp 17 04/19/24 12:00 BP 139/69 04/19/24 12:00 Pulse Ox 96 04/19/24 12:00 FiO2 Intake & Output 04/18/24 04/19/24 04/19/24 18:59 06:59 18:59 Intake Total 1080 24 10 Output Total 950 600 400 Balance 130 -576 -390 Weight 98.7 kg Intake: IV 24 10 Invasive Line 1 24 10 Oral 1080 Output: Urine 950 600 400 Other: Voiding Method External Catheter External Catheter External Catheter # Voids 1 1 # Bowel Movements 1 1 - Exam patient is awake, comfortable, no acute distress. Examination of the heart S1 and S2 Examination of the lungs bilateral breath sounds are heard Abdomen is soft nontender Examination of lower extremities shows edema 2-3+ bilaterally IMAGING AIDE exam grossly intact - Labs CBC & Chem 7: 04/18/24 06:14 04/19/24 05:40 Labs: Abnormal Lab Results - Last 24 Hours (Table) 04/19/24 Range/Units 05:40 Chloride 112 H (98-107) mmol/L BUN 48 H (7-17) mg/dL Creatinine 2.18 H (0.52-1.04) mg/dL Calcium 8.2 L (8.4-10.2) mg/dL Assessment and Plan Assessment: 1. Acute kidney injury cardiorenal. No urine retention noted. UA shows 2+ protein and trace blood and WBC 70. Check ultrasound of the kidneys 2. Chronic kidney disease NKF stage IIIa with baseline creatinine about 1.2 mg/dL. Etiology is likely diabetic kidney disease and nephrosclerosis. 3. Acute on chronic CHF with preserved ejection fraction of 50% 4. Volume overload 5. Hypertension with CK D stage III a 6. Pyuria, asymptomatic 7. Anemia rule out iron deficiency Plan: continue with IV Lasix Repeat labs in a.m. Accurate I's and O's [facility] Add Aranesp Follow-up on iron profile and ultrasound of the kidneys
[2024-04-19] MEDS: NYSTATIN 100,000 UNIT/GM POWD 15 GM TOPICAL PRN (13:00)
--- NOTE | 2024-04-19 14:00 | P.PN ---
Subjective This is a pleasant 79 years old female from home with past medical history of diabetes mellitus, hypertension, chronic kidney disease stage III. PCP is Dr. Sue, circulation man is Dr. Aguilar Presents because of worsening bilateral leg swelling. Patient usually on diuretic at home but she is not very compliant with taking it all the time. Recently has been complaining from worsening with swelling in her legs, she has difficulty raising them up, at baseline she walks for short distance but over the last week she had difficulty walking and staying in bed most of the time. She complains also from dyspnea with no significant chest pain or coughing. She also has some urgency with urination but no dysuria. She feels that the lightheadedness but no headache weakness or numbness She has no history of smoking or drinking alcohol, no drugs. She is saturating well on room air, she is afebrile. Hemoglobin at baseline 9.1, with baseline 9-10. Platelet count slightly low at 147 Creatinine 2.0 slightly worse than last time 1.7 about 1 month ago. Rest of basic metabolic panel, liver enzymes, proBNP is elevated to 440. EKG showing sinus bradycardia at [address]-T changes Chest x-ray showing cardiomegaly with pulmonary vascular congestion and bilateral pleural effusion proBNP is elevated to 440. Ejection fraction from 03/21/2024 is about 50% 04/18/2024 Patient awake alert, no respiratory distress She still has extensive bilateral leg swelling. No evidence of cellulitis, ultrasound is negative for DVT. Suspected secondary to CHF with elevated proBNP. Patient was started on IV Lasix 40 mg twice daily. Ejection fraction on 03/2024 is 50% Creatinine monitored closely 2.0 up to 2.3 today. No evidence of urine retention. Urine analysis is reviewed looks concentrated sample patient with no dysuria Patient states she was able to walk few days ago but because of severe leg swelling she has difficulty now. 04/19 Patient with bilateral leg swelling Patient currently placed on IV Lasix 40 mg twice daily Her legs are weeping today, looks similar to yesterday. However her creatinine is coming down to 2.18 Review of systems CONSTITUTIONAL: No fever, no malaise, no fatigue. HEENT: No recent visual problems or hearing problems. Denied any sore throat. CARDIOVASCULAR: No orthopnea, PND, no palpitations, no syncope. PULMONARY: No shortness of breath, no cough, no hemoptysis. GENITOURINARY: Denies any burning micturition, frequency, or urgency. MUSCULOSKELETAL/RHEUMATOLOGICAL: Denies any joint pain, swelling, or any muscle pain. ENDOCRINE: Denies any polyuria or polydipsia. Active Medications Generic Name Dose Route Start Last Admin Trade Name Freq PRN Reason Stop Dose Admin Acetaminophen 650 mg 04/16/24 20:37 Acetaminophen Tab 325 Mg Tab PO Q6HR PRN Mild Pain or Fever > 100.5 Amlodipine Besylate 10 mg 04/17/24 09:00 04/18/24 08:08 Amlodipine 10 Mg Tab PO 10 mg DAILY ZAK Administration Famotidine 20 mg 04/18/24 09:00 04/18/24 08:08 Famotidine 20 Mg Tab PO 20 mg DAILY ZAK Administration Furosemide 40 mg 04/17/24 09:00 04/18/24 08:08 Furosemide 10 Mg/Ml 4 Ml Vial IV 40 mg Q12HR ZAK Administration Heparin Sodium (Porcine) 5,000 unit 04/17/24 09:00 04/18/24 08:08 Heparin Sodium,Porcine 5,000 Unit/Ml 1 Ml Vial SQ 5,000 unit Q12HR ZAK Administration Hydralazine HCl 50 mg 04/18/24 09:00 04/18/24 09:19 Hydralazine Hcl 50 Mg Tab PO Not Given TID ZAK Naloxone HCl 0.2 mg 04/16/24 20:37 Naloxone 0.4 Mg/Ml 1 Ml Vial IV Q2M PRN Opioid Reversal Ondansetron HCl 4 mg 04/16/24 20:37 Ondansetron 4 Mg/2 Ml Vial IVP Q8HR PRN Nausea And Vomiting Objective - Vital Signs Vital signs: Vital Signs Temp 97.2 F L 04/19/24 12:00 Pulse 55 L 04/19/24 12:00 Resp 17 04/19/24 12:00 BP 139/69 04/19/24 12:00 Pulse Ox 96 04/19/24 12:00 FiO2 Intake & Output 04/18/24 04/19/24 04/19/24 18:59 06:59 18:59 Intake Total 1080 24 20 Output Total 950 600 400 Balance 130 -576 -380 Weight 98.7 kg Intake: IV 24 20 Invasive Line 1 24 20 Oral 1080 Output: Urine 950 600 400 Other: Voiding Method External Catheter External Catheter External Catheter # Voids 1 1 # Bowel Movements 1 1 - Exam GENERAL: The patient is alert and oriented x3, not in any acute distress. Well developed, well nourished. HEENT: Pupils are round and equally reacting to light. EOMI. No scleral icterus. No conjunctival pallor. Normocephalic, atraumatic. No pharyngeal erythema. No thyromegaly. CARDIOVASCULAR: S1 and S2 present. No murmurs, rubs, or gallops. PULMONARY: Chest is clear to auscultation, no wheezing , no crackles. ABDOMEN: Soft, nontender, nondistended, normoactive bowel sounds. No palpable organomegaly. MUSCULOSKELETAL: No joint swelling or deformity. -EXTREMITIES: No cyanosis, clubbing, severe 3+ bilateral pitting leg edema NEUROLOGICAL: Gross neurological examination did not reveal any focal deficits. SKIN: No rashes. no petechiae. - Labs CBC & Chem 7: 04/18/24 06:14 04/19/24 05:40 Labs: Abnormal Lab Results - Last 24 Hours (Table) 04/19/24 Range/Units 05:40 Chloride 112 H (98-107) mmol/L BUN 48 H (7-17) mg/dL Creatinine 2.18 H (0.52-1.04) mg/dL Calcium 8.2 L (8.4-10.2) mg/dL Assessment and Plan Assessment: Acute congestive heart failure with preserved ejection fraction Bilateral leg swelling secondary to above Chronic normal Citic anemia Acute kidney injury on CKD stage III Plan: Start patient on IV Lasix 40 mg twice daily Check ultrasound of the legs was negative for DVT Cardiology team consulted Follow-up nephrology team recommendation Physical therapy evaluation check ua: Concentrated sample and bladder scan, no evidence of retention Labs and medication were reviewed.. Continue same treatment. Continue with symptomatic treatment. Resume home medication. Monitor labs and vitals. DVT and GI prophylaxis. Further recommendations as per clinical course of the patient DVT prophylaxis: Subcutaneous heparin GI Prophylaxis: Pepcid PT/OT: Pending Prognosis is guarded
[2024-04-19] MEDS: DARBEPOETIN ALFA 60 MCG/0.3 ML SYRINGE SQ SCH (15:43)
--- NOTE | 2024-04-19 16:35 | US ---
EXAMINATION TYPE: US kidneys/renal and bladder DATE OF EXAM: 04/19/2024 Exam done portable COMPARISON: NONE CLINICAL INDICATION: Female, 79 years old with history of estella; TECHNIQUE: Grayscale and color Doppler imaging of the bilateral kidneys and urinary bladder: FINDINGS: EXAM MEASUREMENTS: Right Kidney: 9.1 x 4.0 x 4.8 cm Left Kidney: 8.9 x 4.0 x 3.8 cm Right Kidney: No hydronephrosis or masses seen Left Kidney: No hydronephrosis or masses seen Bladder: not well seen IMPRESSION: No evidence for obstructive uropathy or renal calculus. [facility], , 04/19/2024 4:32 PM
[2024-04-20 07:20] LABS: Anisocytosis Slight; Basophils % (A) 0 %; Eosinophils # (A) 0.2 k/uL (0-0.7); Eosinophils % (A) 3 %; HCT 29.2 % (34.0-46.0); HGB 8.7 gm/dL (11.4-16.0); Hypochromasia Marked; Lymphocytes % (A) 21 %; MCHC 29.6 g/dL (31.0-37.0); MCV 97.9 fL (80.0-100.0); Macrocytosis Slight; Mean Platelet Volume 9.4; Monocytes # (A) 0.4 k/uL (0-1.0); Monocytes % (A) 8 %; Neutrophils # (A) 3.2 k/uL (1.3-7.7); Neutrophils % (A) 65 %; Platelet Count 110 k/uL (150-450); RBC 2.99 m/uL (3.80-5.40); RDW 17.6 % (11.5-15.5); WBC 4.9 k/uL (3.8-10.6)
[2024-04-20 07:35] LABS: African American GFR (CKD) 22 (>60 ml/min/1.73 sqM); Anion Gap 5 mmol/L; Blood Urea Nitrogen 50 mg/dL (7-17); Calcium 8.5 mg/dL (8.4-10.2); Carbon Dioxide 24 mmol/L (22-30); Chloride 109 mmol/L (98-107); Glucose 101 mg/dL (74-99); Non-African American GFR(CKD) 19 (>60 ml/min/1.73 sqM); Potassium 4.1 mmol/L (3.5-5.1); Sodium 138 mmol/L (137-145)
[2024-04-20 08:12] LABS: % Iron Saturation 19.74 (12.00-45.00)
[2024-04-20] MEDS: DAPAGLIFLOZIN PROPANEDIOL 10 MG TABLET PO SCH (08:13)
[2024-04-20] MEDS: ZINC OXIDE PASTE (Z-GUARD) 1 APPLIC TOPICAL PRN (11:21)
--- NOTE | 2024-04-20 11:57 | P.PN ---
Subjective Patient is seen for follow-up for acute kidney injury mostly cardiorenal. She is currently being diuresed for volume overload. No significant complaints today. Maintained on IV Lasix 24 hour urine output at 1280 mL. Serum creatinine 2.3 today. Objective - Vital Signs Vital signs: Vital Signs Temp 97.6 F 04/20/24 11:19 Pulse 48 L 04/20/24 11:19 Resp 16 04/20/24 11:19 BP 144/71 04/20/24 11:19 Pulse Ox 95 04/20/24 11:19 FiO2 Intake & Output 04/19/24 04/20/24 04/20/24 18:59 06:59 18:59 Intake Total 678 20 10 Output Total 800 480 250 Balance -122 -460 -240 Weight 79.5 kg Intake: IV 20 20 10 Invasive Line 1 20 20 10 Oral 658 Output: Urine 800 480 250 Other: Voiding Method External Catheter External Catheter External Catheter # Voids 1 1 # Bowel Movements 1 - Exam patient is awake, comfortable, no acute distress. 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 Acute kidney injury cardiorenal. No urine retention noted. UA shows 2+ prot ein and trace blood and WBC 70. Check ultrasound of the kidneys 2. Chronic kidney disease NKF stage IIIa with baseline creatinine about 1.2 mg/dL. Etiology is likely diabetic kidney disease and nephrosclerosis. 3. Acute on chronic CHF with preserved ejection fraction of 50% 4. Volume overload 5. Hypertension with CK D stage III a 6. Pyuria, asymptomatic 7. Anemia rule out iron deficiency Plan: continue with IV Lasix Repeat labs in a.m. Accurate I's and O's continue off of Norvasc continue Aranesp
--- NOTE | 2024-04-20 15:16 | P.PN ---
Subjective This is a pleasant 79 years old female from home with past medical history of diabetes mellitus, hypertension, chronic kidney disease stage III. PCP is Dr. Sue, director of digital technology is Dr. Aguilar Presents because of worsening bilateral leg swelling. Patient usually on diuretic at home but she is not very compliant with taking it all the time. Recently has been complaining from worsening with swelling in her legs, she has difficulty raising them up, at baseline she walks for short distance but over the last week she had difficulty walking and staying in bed most of the time. She complains also from dyspnea with no significant chest pain or coughing. She also has some urgency with urination but no dysuria. She feels that the lightheadedness but no headache weakness or numbness She has no history of smoking or drinking alcohol, no drugs. She is saturating well on room air, she is afebrile. Hemoglobin at baseline 9.1, with baseline 9-10. Platelet count slightly low at 147 Creatinine 2.0 slightly worse than last time 1.7 about 1 month ago. Rest of basic metabolic panel, liver enzymes, proBNP is elevated to 440. EKG showing sinus bradycardia at [address]-T changes Chest x-ray showing cardiomegaly with pulmonary vascular congestion and bilateral pleural effusion proBNP is elevated to 440. Ejection fraction from 03/21/2024 is about 50% 04/18/2024 Patient awake alert, no respiratory distress She still has extensive bilateral leg swelling. No evidence of cellulitis, ultrasound is negative for DVT. Suspected secondary to CHF with elevated proBNP. Patient was started on IV Lasix 40 mg twice daily. Ejection fraction on 03/2024 is 50% Creatinine monitored closely 2.0 up to 2.3 today. No evidence of urine retention. Urine analysis is reviewed looks concentrated sample patient with no dysuria Patient states she was able to walk few days ago but because of severe leg swelling she has difficulty now. 04/19 Patient with bilateral leg swelling Patient currently placed on IV Lasix 40 mg twice daily Her legs are weeping today, looks similar to yesterday. However her creatinine is coming down to 2.18 04/20 Patient with no new complaints She is still getting diuresis with IV Lasix 40 mg twice daily. Farxiga is added today Creatinine 2.3 Review of systems CONSTITUTIONAL: No fever, no malaise, no fatigue. HEENT: No recent visual problems or hearing problems. Denied any sore throat. CARDIOVASCULAR: No orthopnea, PND, no palpitations, no syncope. PULMONARY: No shortness of breath, no cough, no hemoptysis. GENITOURINARY: Denies any burning micturition, frequency, or urgency. MUSCULOSKELETAL/RHEUMATOLOGICAL: Denies any joint pain, swelling, or any muscle pain. ENDOCRINE: Denies any polyuria or polydipsia. Active Medications Generic Name Dose Route Start Last Admin Trade Name Freq PRN Reason Stop Dose Admin Acetaminophen 650 mg 04/16/24 20:37 Acetaminophen Tab 325 Mg Tab PO Q6HR PRN Mild Pain or Fever > 100.5 Dapagliflozin 10 mg 04/20/24 09:00 04/20/24 08:13 Dapagliflozin Propanediol 10 Mg Tablet PO 10 mg DAILY ZAK Administration Darbepoetin Harris 60 mcg 04/19/24 14:00 04/19/24 15:43 Darbepoetin Harris 60 Mcg/0.3 Ml Syringe SQ 60 mcg Q7D ZAK Administration Famotidine 20 mg 04/18/24 09:00 04/20/24 08:13 Famotidine 20 Mg Tab PO 20 mg DAILY ZAK Administration Furosemide 40 mg 04/17/24 09:00 04/20/24 08:13 Furosemide 10 Mg/Ml 4 Ml Vial IV 40 mg Q12HR ZAK Administration Heparin Sodium (Porcine) 5,000 unit 04/17/24 09:00 04/20/24 08:13 Heparin Sodium,Porcine 5,000 Unit/Ml 1 Ml Vial SQ 5,000 unit Q12HR ZAK Administration Hydralazine HCl 50 mg 04/18/24 09:00 04/20/24 08:13 Hydralazine Hcl 50 Mg Tab PO 50 mg TID ZAK Administration Naloxone HCl 0.2 mg 04/16/24 20:37 Naloxone 0.4 Mg/Ml 1 Ml Vial IV Q2M PRN Opioid Reversal Nystatin 1 applic 04/18/24 10:52 04/20/24 11:21 Nystatin 100,000 Unit/Gm Powd 15 Gm TOPICAL 1 applic BID PRN Administration Skin Irritation Protocol Ondansetron HCl 4 mg 04/16/24 20:37 Ondansetron 4 Mg/2 Ml Vial IVP Q8HR PRN Nausea And Vomiting Petrolatum 1 applic 04/18/24 10:52 04/20/24 11:21 Zinc Oxide Paste (Z-Guard) 1 Applic TOPICAL 1 applic DAILY PRN Administration Wound Healing Protocol Objective - Vital Signs Vital signs: Vital Signs Temp 97.6 F 04/20/24 11:19 Pulse 48 L 04/20/24 11:19 Resp 16 04/20/24 11:19 BP 144/71 04/20/24 11:19 Pulse Ox 95 04/20/24 11:19 FiO2 Intake & Output 04/19/24 04/20/24 04/20/24 18:59 06:59 18:59 Intake Total 678 20 138 Output Total 800 480 250 Balance -122 -460 -112 Weight 79.5 kg Intake: IV 20 20 20 Invasive Line 1 20 20 20 Oral 658 118 Output: Urine 800 480 250 Other: Voiding Method External Catheter External Catheter External Catheter # Voids 1 1 # Bowel Movements 1 1 - Exam GENERAL: The patient is alert and oriented x3, not in any acute distress. Well developed, well nourished. HEENT: Pupils are round and equally reacting to light. EOMI. No scleral icterus. No conjunctival pallor. Normocephalic, atraumatic. No pharyngeal erythema. No thyromegaly. CARDIOVASCULAR: S1 and S2 present. No murmurs, rubs, or gallops. PULMONARY: Chest is clear to auscultation, no wheezing , no crackles. ABDOMEN: Soft, nontender, nondistended, normoactive bowel sounds. No palpable organomegaly. MUSCULOSKELETAL: No joint swelling or deformity. -EXTREMITIES: No cyanosis, clubbing, severe 3+ bilateral pitting leg edema NEUROLOGICAL: Gross neurological examination did not reveal any focal deficits. SKIN: No rashes. no petechiae. - Labs CBC & Chem 7: 04/20/24 06:30 04/20/24 06:30 Labs: Abnormal Lab Results - Last 24 Hours (Table) 04/20/24 04/20/24 Range/Units 06:30 06:30 RBC 2.99 L (3.80-5.40) m/uL Hgb 8.7 L (11.4-16.0) gm/dL Hct 29.2 L (34.0-46.0) % MCHC 29.6 L (31.0-37.0) g/dL RDW 17.6 H (11.5-15.5) % Plt Count 110 L (150-450) k/uL Chloride 109 H (98-107) mmol/L BUN 50 H (7-17) mg/dL Creatinine 2.33 H (0.52-1.04) mg/dL Glucose 101 H (74-99) mg/dL Assessment and Plan Assessment: Acute congestive heart failure with preserved ejection fraction Bilateral leg swelling secondary to above Chronic normal Citic anemia Acute kidney injury on CKD stage III Plan: Start patient on IV Lasix 40 mg twice daily Check ultrasound of the legs was negative for DVT Cardiology team consulted Follow-up nephrology team recommendation Physical therapy evaluation check ua: Concentrated sample and bladder scan, no evidence of retention Labs and medication were reviewed.. Continue same treatment. Continue with symptomatic treatment. Resume home medication. Monitor labs and vitals. DVT and GI prophylaxis. Further recommendations as per clinical course of the patient DVT prophylaxis: Subcutaneous heparin GI Prophylaxis: Pepcid PT/OT: Pending Prognosis is guarded
[2024-04-20] MEDS: ACETAMINOPHEN TAB 325 MG TAB PO PRN (20:08)
--- NOTE | 2024-04-21 08:49 | P.PN ---
Subjective Patient is seen in follow-up for acute kidney injury on chronic kidney disease. Maintained on IV Lasix. Nonoliguric. On room air. Hemodynamically stable. Vital signs are stable. General: No acute distress. HEENT: Head exam is unremarkable. On room air. LUNGS: No audible rhonchi or wheezes. HEART: Rate and Rhythm are regular. ABDOMEN: Nontender. EXTREMITITES: 2+ edema. Objective - Vital Signs Vital signs: Vital Signs Temp 97.6 F 04/21/24 08:00 Pulse 51 L 04/21/24 08:00 Resp 16 04/21/24 08:00 BP 154/70 04/21/24 08:00 Pulse Ox 96 04/21/24 08:00 FiO2 Intake & Output 04/20/24 04/21/24 04/21/24 18:59 06:59 18:59 Intake Total 138 550 Output Total 550 500 Balance -412 50 Weight 78.5 kg Intake: IV 20 10 Invasive Line 1 20 10 Oral 118 540 Output: Urine 550 500 Other: Voiding Method External Catheter External Catheter # Voids 1 # Bowel Movements 1 - Labs CBC & Chem 7: 04/20/24 06:30 04/20/24 06:30 Assessment and Plan Plan: Assessment: 1. Acute kidney injury secondary to ATN secondary to cardiorenal syndrome. No hydronephrosis noted on kidney ultrasound. Left kidney slightly atrophic. Creatinine 2.3 yesterday. 2. Chronic kidney disease stage IIIa with baseline creatinine near 1.2 secondary to diabetic kidney disease and nephrosclerosis. 3. Acute on chronic diastolic CHF. 4. Volume overload. 5. Hypertension with chronic kidney disease. 6. Anemia of chronic kidney disease. Iron deficiency noted. On Aranesp. Plan: Maintain Lasix. Changed to oral Lasix this morning. Maintain Farxiga. Add 1500 cc fluid restriction. IV iron x 1 dose today. Repeat BMP and magnesium level 2 to 3 days postdischarge. Follow-up outpatient 1 week postdischarge.
[2024-04-21] MEDS: SODIUM FERRIC GLUCONAT-SUCROSE 125 MG in SODIUM CHLORIDE 0.9% 100 ML IVPB ONE (10:36)
[2024-04-21] MEDS: FUROSEMIDE 40 MG TAB PO SCH (10:37)
[2024-04-21] MEDS: metOLazone 2.5 MG TAB PO ONE (10:51)
[2024-04-21 11:09] LABS: African American GFR (CKD) 19 (>60 ml/min/1.73 sqM); Anion Gap 4 mmol/L; Blood Urea Nitrogen 51 mg/dL (7-17); Calcium 8.4 mg/dL (8.4-10.2); Carbon Dioxide 27 mmol/L (22-30); Chloride 108 mmol/L (98-107); Glucose 131 mg/dL (74-99); Magnesium 1.9 mg/dL (1.6-2.3); Non-African American GFR(CKD) 16 (>60 ml/min/1.73 sqM); Potassium 4.3 mmol/L (3.5-5.1); Sodium 139 mmol/L (137-145)
--- NOTE | 2024-04-21 11:47 | P.PN ---
Subjective Progress Note Date: 04/21/24 Principal diagnosis: HPI: This is a 79-year-old with diabetes hypertension hyperlipidemia has some lower extremity edema which could be from hypoalbuminemia as well as heart failure type picture however she is clinically doing a bit better. I am recommending we switch her from IV to oral Lasix increase activity. Echo from March revealed a preserved ejection fraction of 50% mild aortic stenosis moderate pulmonary hypertension and mitral regurgitation. She has no chest pain activity is limited.. PHYSICIAL EXAM: Stable JVD 1 cm no carotid bruit S1-S2 heard normally short systolic murmur at the base lungs reveal improved air entry abdomen is soft lower EXTR does reveal edema. Central nervous system grossly no focal deficits. IMPRESSION: 1. Diastolic heart failure with lower extremity edema could be related to hypoalbuminemia as well. 2. Mild aortic stenosis. 3. Type 2 diabetes mellitus. 4.. 5.. RECOMMENDATIONS: Switch from IV to oral Lasix increase activity plan for discharge. Will see her as needed further management per nephrology from a renal standpoint and diuretic management. This is in the range of 2.5. Objective - Vital Signs Vital signs: Vital Signs Temp 97.6 F 04/21/24 08:00 Pulse 51 L 04/21/24 08:00 Resp 16 04/21/24 08:00 BP 154/70 04/21/24 08:00 Pulse Ox 96 04/21/24 08:00 FiO2 Intake & Output 04/20/24 04/21/24 04/21/24 18:59 06:59 18:59 Intake Total 138 550 118 Output Total 550 500 Balance -412 50 118 Weight 78.5 kg Intake: IV 20 10 Invasive Line 1 20 10 Oral 118 540 118 Output: Urine 550 500 Other: Voiding Method External Catheter External Catheter External Catheter # Voids 1 # Bowel Movements 1 - Labs CBC & Chem 7: 04/20/24 06:30 04/21/24 10:13 Labs: Abnormal Lab Results - Last 24 Hours (Table) 04/21/24 Range/Units 10:13 Chloride 108 H (98-107) mmol/L BUN 51 H (7-17) mg/dL Creatinine 2.72 H (0.52-1.04) mg/dL Glucose 131 H (74-99) mg/dL
--- NOTE | 2024-04-21 17:33 | P.PN ---
Subjective Progress Note Date: 04/21/24 Hospital Course: This is a pleasant 79 years old female from home with past medical history of diabetes mellitus, hypertension, chronic kidney disease stage III. PCP is Dr. Sue, coremaking machine operator is Dr. Aguilar Presents because of worsening bilateral leg swelling. Patient usually on diuretic at home but she is not very compliant with taking it all the time. Recently has been complaining from worsening with swelling in her legs, she has difficulty raising them up, at baseline she walks for short distance but over the last week she had difficulty walking and staying in bed most of the time. She complains also from dyspnea with no significant chest pain or coughing. She also has some urgency with urination but no dysuria. She feels that the lightheadedness but no headache weakness or numbness She has no history of smoking or drinking alcohol, no drugs. She is saturating well on room air, she is afebrile. Hemoglobin at baseline 9.1, with baseline 9-10. Platelet count slightly low at 147 Creatinine 2.0 slightly worse than last time 1.7 about 1 month ago. Rest of basic metabolic panel, liver enzymes, proBNP is elevated to 440. EKG showing sinus bradycardia at [address]-T changes Chest x-ray showing cardiomegaly with pulmonary vascular congestion and bi lateral pleural effusion proBNP is elevated to 440. Ejection fraction from 03/21/2024 is about 50% 04/18/2024 Patient awake alert, no respiratory distress She still has extensive bilateral leg swelling. No evidence of cellulitis, ultrasound is negative for DVT. Suspected secondary to CHF with elevated proBNP. Patient was started on IV Lasix 40 mg twice daily. Ejection fraction on 03/2024 is 50% Creatinine monitored closely 2.0 up to 2.3 today. No evidence of urine retention. Urine analysis is reviewed looks concentrated sample patient with no dysuria Patient states she was able to walk few days ago but because of severe leg swelling she has difficulty now. 04/19 Patient with bilateral leg swelling Patient currently placed on IV Lasix 40 mg twice daily Her legs are weeping today, looks similar to yesterday. However her creatinine is coming down to 2.18 04/20 Patient with no new complaints She is still getting diuresis with IV Lasix 40 mg twice daily. Farxiga is added today Creatinine 2.3 04/21 Patient with no new complaints IV Lasix which to oral Lasix 40 mg twice daily by nephrology. Pertinent positives and negatives as discussed above, a complete review of systems was performed and all other systems are negative. Vitals: Signs Reviewed Physical Exam: General: nontoxic, no distress, appears at stated age Derm: warm, dry, intact Head: atraumatic, normocephalic, symmetric Eyes: EOMI, anicteric sclera Mouth: no lip lesion, mucus membranes moist Cardiovascular: S1 S2 reg, no murmur, rubs, or gallops Lungs: CTA bilateral, no rhonchi, no rales, no accessory muscle use Abdominal: soft, non-tender to palpataion, no appreciable organomegaly Extremities: no gross muscle atrophy, no edema, no contractures Neuro: Alert, Oriented, CNII-XII grossly intact, gait normal Psych: well appearing, appropriate affect Assessment: Acute congestive heart failure with preserved ejection fraction Bilateral leg swelling secondary to above Chronic normal Citic anemia Acute kidney injury on CKD stage III Plan: Start patient on IV Lasix 40 mg twice daily Check ultrasound of the legs was negative for DVT Cardiology team consulted Follow-up nephrology team recommendation Physical therapy evaluation 04/21/2024 Creatinine elevated 2.33 => 2.72 Nephrology note reviewed. Maintain Lasix, changed to oral Lasix this morning, continue with Farxiga, repeat BMP and magnesium level 2 to 3 days postdischarge Continue 1500cc fluid restriction Repeat CBC, BMP, and magnesium Cardiology following, note reviewed. PT/OT consulted DVT prophylaxis: Subcutaneous heparin GI Prophylaxis: Pepcid PT/OT: Pending Prognosis is guarded Labs and medication were reviewed.. Continue same treatment. Continue with symptomatic treatment. Resume home medication. Monitor labs and vitals. DVT and GI prophylaxis. Further recommendations as per clinical course of the patient Objective - Vital Signs Vital signs: Vital Signs Temp 97.6 F 04/21/24 08:00 Pulse 51 L 04/21/24 08:00 Resp 16 04/21/24 08:00 BP 154/70 04/21/24 08:00 Pulse Ox 96 04/21/24 08:00 FiO2 Intake & Output 04/20/24 04/21/24 04/21/24 18:59 06:59 18:59 Intake Total 138 550 Output Total 550 500 Balance -412 50 Weight 78.5 kg Intake: IV 20 10 Invasive Line 1 20 10 Oral 118 540 Output: Urine 550 500 Other: Voiding Method External Catheter External Catheter # Voids 1 # Bowel Movements 1 - Labs CBC & Chem 7: 04/20/24 06:30 04/21/24 10:13
[2024-04-22 02:24] LABS: Appearance,Urine Clear (Clear); Bacteria,Urine Occasional /hpf; Bilirubin,Urine Negative (Negative); Blood,Urine Negative (Negative); Budding Yeast,Urine Rare /hpf; Color,Urine Colorless; Glucose,Urine (UA) 2+ (Negative); Hyaline Casts,Urine 5 /lpf (0-2); Ketones,Urine Negative (Negative); Leukocyte Esterase,Urine Moderate (Negative); Mucus,Urine Rare /hpf; Nitrite,Urine Negative (Negative); PH, Urine 5.5 (5.0-8.0); Protein,Urine 1+ (Negative); RBC,Urine 2 /hpf (0-5); Specific Gravity,Urine 1.008 (1.001-1.035); Urobilinogen,Urine <2.0 mg/dL (<2.0); WBC,Urine 15 /hpf (0-5)
[2024-04-22 08:48] LABS: Basophils # (A) 0.01 X 10*3/uL (0.00-0.10); Basophils % (A) 0.2 %; Eosinophils # (A) 0.15 X 10*3/uL (0.04-0.35); Eosinophils % (A) 2.7 %; HGB 8.7 g/dL (12.0-15.0); Lymphocytes # (A) 0.97 X 10*3/uL (0.90-5.00); Lymphocytes % (A) 17.4 %; MCH 29.2 pg (27.0-32.0); MCHC 31.1 g/dL (32.0-37.0); Mean Platelet Volume 12.6 FL (9.5-12.2); NRBC Per 100 WBC 0 X 10*3/uL (0.00-0.01); Neutrophils # (A) 3.69 X 10*3/uL (1.80-7.70); Neutrophils % (A) 66.2 %; Platelet Count 84 X 10*3/uL (140-440); RBC 2.98 X 10*6/uL (4.10-5.20); RDW 18.1 % (11.5-14.5); WBC 5.57 X 10*3/uL (4.50-10.00)
[2024-04-22 10:37] LABS: BUN/Creat Ratio 20.68 Ratio (12.00-20.00); Blood Urea Nitrogen 51.7 mg/dL (9.0-27.0); Calcium 8.5 mg/dL (8.7-10.3); Carbon Dioxide 22.8 mmol/L (21.6-31.8); Chloride 107 mmol/L (96-109); Glucose 120 mg/dL (70-110); Magnesium 2.1 mg/dL (1.5-2.4); Potassium 4.6 mmol/L (3.5-5.5); Sodium 141 mmol/L (135-145)
[2024-04-22 10:54] VITALS: BMI 31.6
--- NOTE | 2024-04-22 11:30 | P.PN ---
Subjective Patient is seen in follow-up for acute kidney injury on chronic kidney disease. Maintained on po Lasix. Nonoliguric. On room air. Hemodynamically stable. Vital signs are stable. General: No acute distress. HEENT: Head exam is unremarkable. On room air. LUNGS: No audible rhonchi or wheezes. HEART: Rate and Rhythm are regular. ABDOMEN: Nontender. EXTREMITITES: 1+ edema. Objective - Vital Signs Vital signs: Vital Signs Temp 94.6 F L 04/22/24 02:00 Pulse 45 L 04/22/24 08:00 Resp 16 04/22/24 08:00 BP 125/75 04/22/24 08:00 Pulse Ox 96 04/22/24 08:00 FiO2 Intake & Output 04/21/24 04/22/24 04/22/24 18:59 06:59 18:59 Intake Total 476 540 118 Output Total 800 350 Balance -324 190 118 Weight 76 kg 76 kg Intake: Oral 476 540 118 Output: Urine 800 350 Other: Voiding Method External Catheter External Catheter External Catheter - Labs CBC & Chem 7: 04/22/24 03:24 04/22/24 03:24 Labs: Abnormal Lab Results - Last 24 Hours (Table) 04/22/24 04/22/24 04/22/24 Range/Units 01:45 03:24 03:24 RBC 2.98 L (4.10-5.20) X 10*6/uL Hgb 8.7 L (12.0-15.0) g/dL Hct 28.0 L (37.2-46.3) % MCHC 31.1 L (32.0-37.0) g/dL RDW 18.1 H (11.5-14.5) % Plt Count 84 L (140-440) X 10*3/uL MPV 12.6 H (9.5-12.2) FL Immature Gran # 0.25 H (0.00-0.04) X 10*3/uL BUN 51.7 H (9.0-27.0) mg/dL Creatinine 2.5 H (0.6-1.5) mg/dL Est GFR (CKD-EPI) 19 L (>=60) BUN/Creatinine Ratio 20.68 H (12.00-20.00) Ratio Glucose 120 H (70-110) mg/dL Calcium 8.5 L (8.7-10.3) mg/dL Urine Protein 1+ H (Negative) Urine Glucose (UA) 2+ H (Negative) Ur Leukocyte Esterase Moderate H (Negative) Urine WBC 15 H (0-5) /hpf Urine Bacteria Occasional H (None) /hpf Hyaline Casts 5 H (0-2) /lpf Urine Mucus Rare H (None) /hpf Urine Yeast (Budding) Rare H (None) /hpf Assessment and Plan Plan: Assessment: 1. Acute kidney injury secondary to ATN secondary to cardiorenal syndrome. No hydronephrosis noted on kidney ultrasound. Left kidney slightly atrophic. Renal function fairly stable. Creatinine 2.5 today. 2. Chronic kidney disease stage IIIa with baseline creatinine near 1.2 secondary to diabetic kidney disease and nephrosclerosis. 3. Acute on chronic diastolic CHF. 4. Volume overload. Improved with diuresis. 5. Hypertension with chronic kidney disease. Controlled. 6. Anemia of chronic kidney disease. Mild iron deficiency noted - status post IV iron given April 21, 2024. On Aranesp. Plan: Maintain Lasix. Maintain Farxiga. Maintain 1500 cc fluid restriction. Repeat BMP and magnesium level 2 to 3 days postdischarge. Follow-up outpatient 1 week postdischarge.
--- NOTE | 2024-04-22 15:14 | P.PN ---
Subjective Progress Note Date: 04/22/24 Hospital Course: This is a pleasant 79 years old female from home with past medical history of diabetes mellitus, hypertension, chronic kidney disease stage III. PCP is Dr. Sue, hairspring cutter is Dr. Aguilar Presents because of worsening bilateral leg swelling. Patient usually on diuretic at home but she is not very compliant with taking it all the time. Recently has been complaining from worsening with swelling in her legs, she has difficulty raising them up, at baseline she walks for short distance but over the last week she had difficulty walking and staying in bed most of the time. She complains also from dyspnea with no significant chest pain or coughing. She also has some urgency with urination but no dysuria. She feels that the lightheadedness but no headache weakness or numbness She has no history of smoking or drinking alcohol, no drugs. She is saturating well on room air, she is afebrile. Hemoglobin at baseline 9.1, with baseline 9-10. Platelet count slightly low at 147 Creatinine 2.0 slightly worse than last time 1.7 about 1 month ago. Rest of basic metabolic panel, liver enzymes, proBNP is elevated to 440. EKG showing sinus bradycardia at [address]-T changes Chest x-ray showing cardiomegaly with pulmonary vascular congestion and bi lateral pleural effusion proBNP is elevated to 440. Ejection fraction from 03/21/2024 is about 50% 04/18/2024 Patient awake alert, no respiratory distress She still has extensive bilateral leg swelling. No evidence of cellulitis, ultrasound is negative for DVT. Suspected secondary to CHF with elevated proBNP. Patient was started on IV Lasix 40 mg twice daily. Ejection fraction on 03/2024 is 50% Creatinine monitored closely 2.0 up to 2.3 today. No evidence of urine retention. Urine analysis is reviewed looks concentrated sample patient with no dysuria Patient states she was able to walk few days ago but because of severe leg swelling she has difficulty now. 04/19 Patient with bilateral leg swelling Patient currently placed on IV Lasix 40 mg twice daily Her legs are weeping today, looks similar to yesterday. However her creatinine is coming down to 2.18 04/20 Patient with no new complaints She is still getting diuresis with IV Lasix 40 mg twice daily. Farxiga is added today Creatinine 2.3 04/21 Patient with no new complaints IV Lasix which to oral Lasix 40 mg twice daily by nephrology. 04/22 Patient with complaint of feeling lightheaded this morning. Multiple readings of bradycardia. Swelling in both legs remained the same. Pertinent positives and negatives as discussed above, a complete review of systems was performed and all other systems are negative. Vitals: Signs Reviewed Physical Exam: General: nontoxic, no distress, appears at stated age Derm: warm, dry, intact Head: atraumatic, normocephalic, symmetric Eyes: EOMI, anicteric sclera Mouth: no lip lesion, mucus membranes moist Cardiovascular: S1 S2 reg, no murmur, rubs, or gallops Lungs: CTA bilateral, no rhonchi, no rales, no accessory muscle use Abdominal: soft, non-tender to palpataion, no appreciable organomegaly Extremities: no gross muscle atrophy, no edema, no contractures Neuro: Alert, Oriented, CNII-XII grossly intact, gait normal Psych: well appearing, appropriate affect Assessment: Acute congestive heart failure with preserved ejection fraction Bilateral leg swelling secondary to above Chronic normal Citic anemia Acute kidney injury on CKD stage III Plan: Start patient on IV Lasix 40 mg twice daily Check ultrasound of the legs was negative for DVT Cardiology team consulted Follow-up nephrology team recommendation Physical therapy evaluation 04/22/2024 Creatinine downtrending Nephrology note reviewed. Maintain Lasix, changed to oral Lasix this morning, continue with Farxiga, repeat BMP and magnesium level 2 to 3 days postdischarge Continue 1500cc fluid restriction Repeat CBC, BMP, and magnesium Cardiology following, note reviewed. PT/OT consulted EKG ordered to multiple readings of bradycardia, patient feeling lightheaded, rule out heart block Creatinine trending down 2.72 => 2.5 (baseline 1.2) Pending authorization for dispo DVT prophylaxis: Subcutaneous heparin GI Prophylaxis: Pepcid PT/OT: Pending Prognosis is guarded Labs and medication were reviewed.. Continue same treatment. Continue with symptomatic treatment. Resume home medication. Monitor labs and vitals. DVT and GI prophylaxis. Further recommendations as per clinical course of the patient Objective - Vital Signs Vital signs: Vital Signs Temp 94.6 F L 04/22/24 02:00 Pulse 45 L 04/22/24 08:00 Resp 16 04/22/24 08:00 BP 125/75 04/22/24 08:00 Pulse Ox 96 04/22/24 08:00 FiO2 Intake & Output 04/21/24 04/22/24 04/22/24 18:59 06:59 18:59 Intake Total 476 540 118 Output Total 800 350 Balance -324 190 118 Weight 76 kg 76 kg Intake: Oral 476 540 118 Output: Urine 800 350 Other: Voiding Method External Catheter External Catheter External Catheter - Labs CBC & Chem 7: 04/22/24 03:24 04/22/24 03:24 Labs: Abnormal Lab Results - Last 24 Hours (Table) 04/22/24 04/22/24 04/22/24 Range/Units 01:45 03:24 03:24 RBC 2.98 L (4.10-5.20) X 10*6/uL Hgb 8.7 L (12.0-15.0) g/dL Hct 28.0 L (37.2-46.3) % MCHC 31.1 L (32.0-37.0) g/dL RDW 18.1 H (11.5-14.5) % Plt Count 84 L (140-440) X 10*3/uL MPV 12.6 H (9.5-12.2) FL Immature Gran # 0.25 H (0.00-0.04) X 10*3/uL BUN 51.7 H (9.0-27.0) mg/dL Creatinine 2.5 H (0.6-1.5) mg/dL Est GFR (CKD-EPI) 19 L (>=60) BUN/Creatinine Ratio 20.68 H (12.00-20.00) Ratio Glucose 120 H (70-110) mg/dL Calcium 8.5 L (8.7-10.3) mg/dL Urine Protein 1+ H (Negative) Urine Glucose (UA) 2+ H (Negative) Ur Leukocyte Esterase Moderate H (Negative) Urine WBC 15 H (0-5) /hpf Urine Bacteria Occasional H (None) /hpf Hyaline Casts 5 H (0-2) /lpf Urine Mucus Rare H (None) /hpf Urine Yeast (Budding) Rare H (None) /hpf
[2024-04-23 10:01] LABS: Anisocytosis Slight; HCT 29.3 % (34.0-46.0); HGB 9.1 gm/dL (11.4-16.0); Hypochromasia Moderate; MCH 29.4 pg (25.0-35.0); MCV 94.8 fL (80.0-100.0); Macrocytosis Slight; RBC 3.09 m/uL (3.80-5.40); RDW 18.3 % (11.5-15.5)
[2024-04-23 10:09] LABS: ALT 29 U/L (4-34); African American GFR (CKD) 21 (>60 ml/min/1.73 sqM); Anion Gap 5 mmol/L; Blood Urea Nitrogen 59 mg/dL (7-17); Calcium 8.7 mg/dL (8.4-10.2); Carbon Dioxide 24 mmol/L (22-30); Chloride 109 mmol/L (98-107); Globulin 2.9 g/dL; Glucose 85 mg/dL (74-99); Non-African American GFR(CKD) 18 (>60 ml/min/1.73 sqM); Sodium 138 mmol/L (137-145); Total Bilirubin 0.6 mg/dL (0.2-1.3); Total Protein 5.9 g/dL (6.3-8.2)
[2024-04-23 10:26] LABS: AST 53 U/L (14-36); Potassium 4.7 mmol/L (3.5-5.1)
[2024-04-23 10:27] LABS: Alkaline Phosphatase 75 U/L (38-126)
--- NOTE | 2024-04-23 10:46 | P.PN ---
Subjective Patient is seen in follow-up for acute kidney injury on chronic kidney disease. Maintained on po Lasix. Nonoliguric. On room air. Hemodynamically stable. Vital signs are stable. General: No acute distress. HEENT: Head exam is unremarkable. On room air. LUNGS: No audible rhonchi or wheezes. HEART: Rate and Rhythm are regular. ABDOMEN: Nontender. EXTREMITITES: 1+ edema. Objective - Vital Signs Vital signs: Vital Signs Temp 96.0 F L 04/23/24 08:00 Pulse 64 04/23/24 08:00 Resp 16 04/23/24 08:00 BP 165/72 04/23/24 08:00 Pulse Ox 95 04/23/24 08:00 FiO2 Intake & Output 04/22/24 04/23/24 04/23/24 18:59 06:59 18:59 Intake Total 418 540 118 Output Total 400 Balance 418 140 118 Weight 76 kg 75.6 kg Intake: Oral 368 540 118 Other 50 Output: Urine 400 Other: Voiding Method External Catheter External Catheter External Catheter - Labs CBC & Chem 7: 04/23/24 09:37 04/23/24 09:37 Labs: Abnormal Lab Results - Last 24 Hours (Table) 04/23/24 04/23/24 Range/Units 09:37 09:37 RBC 3.09 L (3.80-5.40) m/uL Hgb 9.1 L (11.4-16.0) gm/dL Hct 29.3 L (34.0-46.0) % RDW 18.3 H (11.5-15.5) % Chloride 109 H (98-107) mmol/L BUN 59 H (7-17) mg/dL Creatinine 2.49 H (0.52-1.04) mg/dL AST 53 H (14-36) U/L Total Protein 5.9 L (6.3-8.2) g/dL Albumin 3.0 L (3.5-5.0) g/dL Assessment and Plan Plan: Assessment: 1. Acute kidney injury secondary to ATN secondary to cardiorenal syndrome. No hydronephrosis noted on kidney ultrasound. Left kidney slightly atrophic. Renal function fairly stable. 2. Chronic kidney disease stage IIIa with baseline creatinine near 1.2 secondary to diabetic kidney disease and nephrosclerosis. 3. Acute on chronic diastolic CHF. 4. Volume overload. Improved with diuresis. 5. Hypertension with chronic kidney disease. 6. Anemia of chronic kidney disease. Mild iron deficiency noted - status post IV iron given April 21, 2024. On Aranesp. Plan: Maintain Lasix. Maintain Farxiga. Maintain 1500 cc fluid restriction. Add low-dose losartan. Repeat BMP and magnesium level 2 to 3 days postdischarge. Follow-up outpatient 1 week postdischarge.
[2024-04-23 11:13] LABS: Platelet Count 96 k/uL (150-450)
[2024-04-23 11:18] LABS: Eosinophils # (M) 0.06 k/uL (0-0.7); Lymphocytes # (M) 0.72 k/uL (1.0-4.8); Metamyelocytes # (M) 0.06 k/uL (0); Metamyelocytes % 1 %; Myelocytes # (M) 0.06 k/uL (0); Myelocytes % 1 %; Neutrophils # (M) 4.56 k/uL (1.3-7.7); Neutrophils % (M) 76 %; Nucleated Red Blood Cells 0 /100 WBC (0-0); Total Cells Counted 200
[2024-04-23] MEDS: LOSARTAN 25 MG TAB PO SCH (12:04)
--- NOTE | 2024-04-23 17:22 | P.DS ---
Providers Date of admission: 04/16/24 20:40 Discharge Diagnosis: Acute congestive heart failure with preserved ejection fraction Acute kidney injury secondary to ATN secondary to cardiorenal syndrome Chronic normocytic anemia Acute kidney injury on CKD stage IIIa Hypertension with chronic kidney disease Volume overload Hospital Course: This is a pleasant 79 years old female from home with past medical history of diabetes mellitus, hypertension, chronic kidney disease stage III. PCP is Dr. Sue, bag bleacher is Dr. Aguilar Presents because of worsening bilateral leg swelling. Patient usually on diuretic at home but she is not very compliant with taking it all the time. Recently has been complaining from worsening with swelling in her legs, she has difficulty raising them up, at baseline she walks for short distance but over the last week she had difficulty walking and staying in bed most of the time. She complains also from dyspnea with no significant chest pain or coughing. She also has some urgency with urination but no dysuria. She feels that the lightheadedness but no headache weakness or numbness She has no history of smoking or drinking alcohol, no drugs. She is saturating well on room air, she is afebrile. Hemoglobin at baseline 9.1, with baseline 9-10. Platelet count slightly low at 147 Creatinine 2.0 slightly worse than last time 1.7 about 1 month ago. Rest of basic metabolic panel, liver enzymes, proBNP is elevated to 440. EKG showing sinus bradycardia at [address]-T changes Chest x-ray showing cardiomegaly with pulmonary vascular congestion and bilateral pleural effusion proBNP is elevated to 440. Ejection fraction from 03/21/2024 is about 50% 04/18/2024 Patient awake alert, no respiratory distress She still has extensive bilateral leg swelling. No evidence of cellulitis, ultrasound is negative for DVT. Suspected secondary to CHF with elevated proBNP. Patient was started on IV Lasix 40 mg twice daily. Ejection fraction on 03/2024 is 50% Creatinine monitored closely 2.0 up to 2.3 today. No evidence of urine retention. Urine analysis is reviewed looks concentrated sample patient with no dysuria Patient states she was able to walk few days ago but because of severe leg swelling she has difficulty now. 04/19 Patient with bilateral leg swelling Patient currently placed on IV Lasix 40 mg twice daily Her legs are weeping today, looks similar to yesterday. However her creatinine is coming down to 2.18 04/20 Patient with no new complaints She is still getting diuresis with IV Lasix 40 mg twice daily. Farxiga is added today Creatinine 2.3 04/21 Patient with no new complaints IV Lasix which to oral Lasix 40 mg twice daily by nephrology. 04/22 Patient with complaint of feeling lightheaded this morning. Multiple readings of bradycardia. Swelling in both legs remained the same. 04/23 Patient seen and examined at bedside. No acute events overnight. EKG demonstrated sinus bradycardia. She is being discharged with hydralazine, losartan, Farxiga. She is to follow-up with nephrology in 1 week. Close follow-up with PCP. Will get repeat BMP and CMP 2-3 days postdischarge. She is being discharged home. Vital signs reviewed and stable. Physical Exam: General: nontoxic, no distress, appears at stated age Derm: warm, dry, intact Head: atraumatic, normocephalic, symmetric Eyes: EOMI, anicteric sclera Mouth: no lip lesion, mucus membranes moist Cardiovascular: S1 S2 reg, no murmur, rubs, or gallops Lungs: CTA bilateral, no rhonchi, no rales, no accessory muscle use Abdominal: soft, non-tender to palpataion, no appreciable organomegaly Extremities: no gross muscle atrophy, no edema, no contractures, 1+ edema Neuro: Alert, Oriented, CNII-XII grossly intact, gait normal Psych: well appearing, appropriate affect A total of greater then 30 minutes of time were spent preparing this complex discharge summary. Patient was discharge on April 23, 2024 at 3:51 PM. Expected date of discharge: 04/23/24 Attending physician: Jeff Reaves Consults: 04/16/24 20:37 Consult Physician Urgent Consulting Provider: Didier Green Consult Reason/Comments: heart failure Do you want consulting provider notified?: Yes, Notify in am 04/18/24 08:17 Consult Physician Routine Consulting Provider: Georgi Fuentes Consult Reason/Comments: BECCA Do you want consulting provider notified?: Yes Primary care physician: Osvaldo Sue Patient Condition at Discharge: Stable Plan - Discharge Summary Discharge Rx Participant: No New Discharge Prescriptions: New hydrALAZINE HCL [Apresoline] 50 mg PO TID #30 tab Losartan [Cozaar] 25 mg PO DAILY #30 tab Dapagliflozin Propanediol [Farxiga] 10 mg PO DAILY #30 tab Continue amLODIPine BESYLATE/BENAZEPRIL [Lotrel 10-20 MG] 1 cap PO DAILY Pioglitazone [Actos] 30 mg PO DAILY Linagliptin/Metformin HCl [Jentadueto 2.5 mg-1000 mg Tab] 1 tab PO DAILY Furosemide [Lasix] 20 mg PO DAILY Discharge Medication List amLODIPine BESYLATE/BENAZEPRIL [Lotrel 10-20 MG] 1 cap PO DAILY 01/07/14 [History] Furosemide [Lasix] 20 mg PO DAILY 04/16/24 [History] Linagliptin/Metformin HCl [Jentadueto 2.5 mg-1000 mg Tab] 1 tab PO DAILY 04/16/24 [History] Pioglitazone [Actos] 30 mg PO DAILY 04/16/24 [History] Dapagliflozin Propanediol [Farxiga] 10 mg PO DAILY #30 tab 04/23/24 [Rx] Losartan [Cozaar] 25 mg PO DAILY #30 tab 04/23/24 [Rx] hydrALAZINE HCL [Apresoline] 50 mg PO TID #30 tab 04/23/24 [Rx] Follow up Appointment(s)/Referral(s): Osvaldo Sue DO [Primary Care Provider] - 1-2 days [facility] [NON-STAFF] - Georgi Fuentes DO [STAFF PHYSICIAN] - 1 Week Ambulatory/Diagnostic Orders: Basic Metabolic Panel [LAB.AMB] Location: None Selected Magnesium [LAB.AMB] Location: None Selected Discharge Disposition: HOME SELF-CARE
--- NOTE | 2024-04-24 11:56 | P.PN ---
Subjective Patient is seen in follow-up for acute kidney injury on chronic kidney disease. Maintained on po Lasix. Nonoliguric. On room air. Renal function stable. Vital signs are stable. General: No acute distress. HEENT: Head exam is unremarkable. On room air. LUNGS: No audible rhonchi or wheezes. HEART: Rate and Rhythm are regular. ABDOMEN: Nontender. EXTREMITITES: 1+ edema. Objective - Vital Signs Vital signs: Vital Signs Temp 98.3 F 04/24/24 07:31 Pulse 70 04/24/24 07:31 Resp 16 04/24/24 07:31 BP 189/69 04/24/24 07:31 Pulse Ox 97 04/24/24 07:31 FiO2 Intake & Output 04/23/24 04/24/24 04/24/24 18:59 06:59 18:59 Intake Total 1596 240 Output Total 650 300 Balance 946 -60 Weight 75.6 kg Intake: Oral 1596 240 Output: Urine 650 300 Other: Voiding Method External Catheter External Catheter # Voids 1 1 # Bowel Movements 1 1 - Labs CBC & Chem 7: 04/23/24 09:37 04/23/24 09:37 Labs: Microbiology - Last 24 Hours (Table) 04/22/24 01:45 Urine Culture - Preliminary Urine,Voided Gram Neg Bacilli Assessment and Plan Plan: Assessment: 1. Acute kidney injury secondary to ATN secondary to cardiorenal syndrome. No hydronephrosis noted on kidney ultrasound. Left kidney slightly atrophic. Renal function fairly stable. 2. Chronic kidney disease stage IIIa with baseline creatinine near 1.2 secondary to diabetic kidney disease and nephrosclerosis. 3. Acute on chronic diastolic CHF. 4. Volume overload. Improved with diuresis. 5. Hypertension with chronic kidney disease. 6. Anemia of chronic kidney disease. Mild iron deficiency noted - status post IV iron given April 21, 2024. On Aranesp. Plan: Maintain Lasix. Maintain Farxiga. Maintain 1500 cc fluid restriction. Losartan added yesterday. Increase frequency to twice daily. Repeat BMP and magnesium level 2 to 3 days postdischarge. Follow-up outpatient 1 week postdischarge.
[2024-04-24 14:31] VITALS: BP 172/71; PULSE 63; RESP 20; TEMP 92.2
[2024-04-24] MEDS ORDERED: LOSARTAN 25 MG TAB PO SCH (21:00)
== END 2024-04-24 16:31 | DRG 291 ==
LOC: EC 18:29 → 3SCARD 20:40 → 6NMEDSUR 04-20 22:05
PROVIDERS: ADMIT Hospitalist; ATTEND Hospitalist
DX: I13.0 Hypertensive heart and chronic kidney disease with heart failure and stage 1 through stage 4 chronic kidney disease, or unspecified chronic kidney disease (principal); I50.33 Acute on chronic diastolic (congestive) heart failure; N17.0 Acute kidney failure with tubular necrosis; D63.1 Anemia in chronic kidney disease; I27.20 Pulmonary hypertension, unspecified; E11.22 Type 2 diabetes mellitus with diabetic chronic kidney disease; E66.9 Obesity, unspecified; E78.5 Hyperlipidemia, unspecified; N18.31 Chronic kidney disease, stage 3a; E61.1 Iron deficiency; Z85.828 Personal history of other malignant neoplasm of skin; Z68.31 Body mass index [BMI] 31.0-31.9, adult; Z88.2 Allergy status to sulfonamides; Z88.8 Allergy status to other drugs, medicaments and biological substances; Z79.84 Long term (current) use of oral hypoglycemic drugs; Z79.899 Other long term (current) drug therapy
CPT/HCPCS: 36415; 71046; 76770; 80048; 80053; 81001; 83540; 83550; 83735; 83880; 85025; 87077; 87086; 87186; 93005; 93970; 96374; 99285

== ENCOUNTER 2024-05-11 15:05 | Inpatient (IN) | payer MEDICARE, OTHER ==
--- NOTE | 2024-05-11 15:53 | ED ---
Recheck HPI - General Chief Complaint: Recheck/Abnormal Lab/Rx Stated Complaint: Abnormal Labs Time Seen by Provider: 05/11/24 15:17 Source: patient, EMS, RN notes reviewed Mode of arrival: EMS Limitations: physical limitation - History of Present Illness Initial Comments: This is a 79-year-old female with history of CHF and BECCA presenting via EMS with DNR presenting from [facility] with abnormal labs/kidney function x 1 day. Patient was admitted for 1 week from [facility] 08/11/2023 at [facility] for CHF and BECCA for discharge back to [facility]. Patient was sent back to ER due to abnormal kidney function noted on lab work. Patient endorses decreased urinary output. Denies dyspnea, shortness of breath, hemoptysis. Patient denies fever, chills, chest pain, abdominal pain, N/V/D, dizziness. MD Complaint: abnormal lab - Related Data Home Medications Medication Instructions Recorded Confirmed amLODIPine BESYLATE/BENAZEPRIL 1 cap PO DAILY 01/07/14 05/11/24 [Lotrel 10-20 MG] Pioglitazone [Actos] 30 mg PO DAILY 04/16/24 05/11/24 Cholecalciferol [Vitamin D3 (25 100 mcg PO DAILY 05/11/24 05/11/24 Mcg = 1000 Iu)] Furosemide [Lasix] 40 mg PO DAILY 05/11/24 05/11/24 hydrALAZINE HCL [Apresoline] 50 mg PO TID@05,13,21 05/11/24 05/11/24 Previous Rx's Medication Instructions Recorded Dapagliflozin Propanediol [Farxiga] 10 mg PO DAILY #30 tab 04/23/24 Losartan [Cozaar] 25 mg PO DAILY #30 tab 04/23/24 Allergies Allergy/AdvReac Type Severity Reaction Status Date / Time glipizide Allergy Itching/ban Verified 05/11/24 16:09 h Sulfa (Sulfonamide Allergy Itching Verified 05/11/24 16:09 Antibiotics) Review of Systems ROS Statement: Those systems with pertinent positive or pertinent negative responses have been documented in the HPI. ROS Other: All systems not noted in ROS Statement are negative. Past Medical History Past Medical History: Cancer, Diabetes Mellitus, GERD/Reflux, Hypertension, Osteoarthritis (OA) Additional Past Medical History / Comment(s): Current skin cancer on lower lip. constipation, frequent falls due to "weak legs" History of Any Multi-Drug Resistant Organisms: MRSA Date of last positivie culture/infection: 2016 MDRO Source:: Back Past Surgical History: Appendectomy, Cholecystectomy, Orthopedic Surgery Additional Past Surgical History / Comment(s): ORIF left ankle, matteo carpal tunnel, matteo cataracts Past Anesthesia/Blood Transfusion Reactions: No Reported Reaction Past Psychological History: No Psychological Hx Reported Smoking Status: Never smoker Past Alcohol Use History: None Reported Past Drug Use History: None Reported - Past Family History Father Family Medical History: Cancer Brother(s) Family Medical History: Cancer Sister(s) Family Medical History: Cancer Daughter(s) Family Medical History: Cancer General Exam Limitations: physical limitation (Patient is bedbound) General appearance: alert, in no apparent distress, obese Head exam: Present: atraumatic, normocephalic, normal inspection Eye exam: Present: normal appearance, PERRL, EOMI. Absent: scleral icterus, conjunctival injection, periorbital swelling ENT exam: Present: normal exam, mucous membranes moist Neck exam: Present: normal inspection. Absent: tenderness, meningismus, lymphadenopathy Respiratory exam: Present: normal lung sounds bilaterally. Absent: respiratory distress, wheezes, rales, rhonchi, stridor, accessory muscle use, decreased breath sounds Cardiovascular Exam: Present: normal rhythm, bradycardia, normal heart sounds. Absent: systolic murmur, diastolic murmur, rubs, gallop, clicks GI/Abdominal exam: Present: soft, normal bowel sounds. Absent: distended, tenderness, guarding, rebound, rigid Extremities exam: Present: normal inspection, full ROM, normal capillary refill, other (Bilateral lower extremities wrapped in Vishal wrap.). Absent: tenderness, pedal edema, joint swelling, calf tenderness Back exam: Present: normal inspection Neurological exam: Present: alert, oriented X3, CN II-XII intact Psychiatric exam: Present: normal affect, normal mood Skin exam: Present: warm, dry, intact, normal color. Absent: rash Course Vital Signs 05/11/24 05/11/24 05/11/24 15:07 17:30 19:01 Temperature 94.3 F L Pulse Rate 33 L 31 L 30 L Respiratory 16 18 16 Rate Blood Pressure 107/50 105/49 106/47 O2 Sat by Pulse 94 L 98 97 Oximetry 05/11/24 05/11/24 05/11/24 20:00 21:00 22:00 Temperature 96.5 F L Pulse Rate 31 L 28 L 32 L Respiratory 16 14 13 Rate Blood Pressure 103/50 97/46 100/48 O2 Sat by Pulse 96 95 95 Oximetry Medical Decision Making - Medical Decision Making Was pt. sent in by a medical professional or institution (, PA, ROLLER COASTER ENGINEER, urgent care, hospital, or care home...) When possible be specific @ -[facility] via EMS Did you speak to anyone other than the patient for history (EMS, parent, family, police, friend...)? What history was obtained from this source @ -No Did you review nursing and triage notes (agree or disagree)? Why? @ -I reviewed and agree with nursing and triage notes Were old charts reviewed (outside hosp., previous admission, EMS record, old EKG, old radiological studies, urgent care reports/EKG's, care home records)? Report findings @ -Charts from previous ER visit on 04/16/2024 were reviewed as well as cause for admission including CHF and BECCA Differential Diagnosis (chest pain, altered mental status, abdominal pain women, abdominal pain men, vaginal bleeding, weakness, fever, dyspnea, syncope, headache, dizziness, GI bleed, back pain, seizure, CVA, palpatations, mental health, musculoskeletal)? @ -Differential Chest Pain: Stable Angina, Unstable Angina, STEMI, NSTEMI Aortic Dissection, Pneumothorax, Musculoskeletal, Esophageal Spasm GERD, Cholecystitis, Pancreatitis, Zoster, BECCA, CKD, hyperkalemia, hypokalemia, this is not meant to be an all-inclusive list. EKG interpreted by me (3pts min.). @ -Atrial fibrillation with slow ventricular response. No ST changes or T wave inversion. Ventricular rate 32 bpm, QRS duration 122 ms, QTc 450 ms. Critically low heart rate and prolonged QT noted. Dr. Culver aware of EKG findings X-rays interpreted by me (1pt min.). @ -Chest x-ray shows pulmonary edema CT interpreted by me (1pt min.). @ -None done U/S interpreted by me (1pt. min.). @ -None done What testing was considered but not performed or refused? (CT, X-rays, U/S, labs)? Why? @ -None What meds were considered but not given or refused? Why? @ -None Did you discuss the management of the patient with other professionals (professionals i.e. , PA, ROLLER COASTER ENGINEER, lab, RT, psych nurse, social economist, machine inspector, teacher, air control/anti air warfare officer, home health care case manager)? Give summary @ -No Was smoking cessation discussed for >3mins.? @ -No Was critical care preformed (if so, how long)? @ -No Were there social determinants of health that impacted care today? How? (Homelessness, low income, unemployed, alcoholism, drug addiction, transport ation, low edu. Level, literacy, decrease access to med. care, chcf, rehab)? @ -No Was there de-escalation of care discussed even if they declined (Discuss DNR or withdrawal of care, Hospice)? DNR status @ -No What co-morbidities impacted this encounter? (DM, HTN, Smoking, COPD, CAD, Cancer, CVA, ARF, Chemo, Hep., AIDS, mental health diagnosis, sleep apnea, morbid obesity)? @ -Hypertension, DM, cancer Was patient admitted / discharged? Hospital course, mention meds given and route, prescriptions, significant lab abnormalities, going to OR and other pertinent info. @ -Admitted. Patient noted to be hypothermic and severely bradycardic at 33 bpm. Lab work shows BECCA and chest x-ray shows pulmonary edema. Furosemide IV provided patient due to patient's DNR, no other medical intervention was performed and patient comfort was prioritized. Martinez catheter started by RN. Patient is resting comfortably with no complaints at this time prior to admission. Undiagnosed new problem with uncertain prognosis? @ -No Drug Therapy requiring intensive monitoring for toxicity (Heparin, Nitro, Insulin, Cardizem)? @ -No Were any procedures done? @ -No Diagnosis/symptom? @ -BECCA, CHF with pulmonary edema, A-fib with significant bradycardia Acute, or Chronic, or Acute on Chronic? @ -Acute Uncomplicated (without systemic symptoms) or Complicated (systemic symptoms)? @ -Complicated Side effects of treatment? @ -No Exacerbation, Progression, or Severe Exacerbation? @ -Severe exacerbation Poses a threat to life or bodily function? How? (Chest pain, [place], [place], pneumonia, PE, COPD, DKA, ARF, appy, cholecystitis, CVA, Diverticulitis, Homicidal, Suicidal, threat to staff... and all critical care pts) @ -BECCA, pulmonary edema, CHF, A-fib with significant bradycardia - Lab Data Result diagrams: 05/11/24 15:35 05/11/24 15:35 Lab Results 05/11/24 05/11/24 05/11/24 Range/Units 15:35 15:35 15:35 WBC 2.7 L (3.8-10.6) k/uL RBC 2.67 L (3.80-5.40) m/uL Hgb 7.9 L (11.4-16.0) gm/dL Hct 25.0 L (34.0-46.0) % MCV 93.7 (80.0-100.0) fL MCH 29.4 (25.0-35.0) pg MCHC 31.4 (31.0-37.0) g/dL RDW 17.8 H (11.5-15.5) % Plt Count 77 L (150-450) k/uL MPV 12.2 Neutrophils % 75 % Lymphocytes % 14 % Monocytes % 8 % Eosinophils % 1 % Basophils % 0 % Neutrophils # 2.1 (1.3-7.7) k/uL Lymphocytes # 0.4 L (1.0-4.8) k/uL Monocytes # 0.2 (0-1.0) k/uL Eosinophils # 0.0 (0-0.7) k/uL Basophils # 0.0 (0-0.2) k/uL Hypochromasia Moderate Anisocytosis Slight PT 11.0 (10.0-12.5) sec INR 1.0 (<1.2) APTT 31.8 H (22.0-30.0) sec Sodium (137-145) mmol/L Potassium (3.5-5.1) mmol/L Chloride (98-107) mmol/L Carbon Dioxide (22-30) mmol/L Anion Gap mmol/L BUN (7-17) mg/dL Creatinine (0.52-1.04) mg/dL Est GFR (CKD-EPI)AfAm (>60 ml/min/1.73 sqM) Est GFR (CKD-EPI)NonAf (>60 ml/min/1.73 sqM) Glucose (74-99) mg/dL Calcium (8.4-10.2) mg/dL Total Bilirubin (0.2-1.3) mg/dL AST (14-36) U/L ALT (4-34) U/L Alkaline Phosphatase (38-126) U/L Troponin I (0.000-0.034) ng/mL NT-Pro-B Natriuret Pep pg/mL Total Protein (6.3-8.2) g/dL Albumin (3.5-5.0) g/dL Urine Color Light Yellow Urine Appearance Cloudy H (Clear) Urine pH 5.5 (5.0-8.0) Ur Specific [place] 1.015 (1.001-1.035) Urine Protein 2+ H (Negative) Urine Glucose (UA) Negative (Negative) Urine Ketones Negative (Negative) Urine Blood Negative (Negative) Urine Nitrite Negative (Negative) Urine Bilirubin Negative (Negative) Urine Urobilinogen <2.0 (<2.0) mg/dL Ur Leukocyte Esterase Trace H (Negative) Urine RBC 2 (0-5) /hpf Urine WBC 8 H (0-5) /hpf Ur Squamous Epith Cells 17 H (0-4) /hpf Urine Mucus Rare H (None) /hpf 05/11/24 05/11/24 05/11/24 Range/Units 15:35 15:35 15:35 WBC (3.8-10.6) k/uL RBC (3.80-5.40) m/uL Hgb (11.4-16.0) gm/dL Hct (34.0-46.0) % MCV (80.0-100.0) fL MCH (25.0-35.0) pg MCHC (31.0-37.0) g/dL RDW (11.5-15.5) % Plt Count (150-450) k/uL MPV Neutrophils % % Lymphocytes % % Monocytes % % Eosinophils % % Basophils % % Neutrophils # (1.3-7.7) k/uL Lymphocytes # (1.0-4.8) k/uL Monocytes # (0-1.0) k/uL Eosinophils # (0-0.7) k/uL Basophils # (0-0.2) k/uL Hypochromasia Anisocytosis PT (10.0-12.5) sec INR (<1.2) APTT (22.0-30.0) sec Sodium 124 L (137-145) mmol/L Potassium 5.6 H (3.5-5.1) mmol/L Chloride 93 L (98-107) mmol/L Carbon Dioxide 21 L (22-30) mmol/L Anion Gap 10 mmol/L BUN 81 H (7-17) mg/dL Creatinine 3.06 H (0.52-1.04) mg/dL Est GFR (CKD-EPI)AfAm 16 (>60 ml/min/1.73 sqM) Est GFR (CKD-EPI)NonAf 14 (>60 ml/min/1.73 sqM) Glucose 105 H (74-99) mg/dL Calcium 7.4 L (8.4-10.2) mg/dL Total Bilirubin 0.1 L (0.2-1.3) mg/dL AST 39 H (14-36) U/L ALT 28 (4-34) U/L Alkaline Phosphatase 87 (38-126) U/L Troponin I <0.012 (0.000-0.034) ng/mL NT-Pro-B Natriuret Pep 1030 pg/mL Total Protein 5.5 L (6.3-8.2) g/dL Albumin 2.9 L (3.5-5.0) g/dL Urine Color Urine Appearance (Clear) Urine pH (5.0-8.0) Ur Specific [place] (1.001-1.035) Urine Protein (Negative) Urine Glucose (UA) (Negative) Urine Ketones (Negative) Urine Blood (Negative) Urine Nitrite (Negative) Urine Bilirubin (Negative) Urine Urobilinogen (<2.0) mg/dL Ur Leukocyte Esterase (Negative) Urine RBC (0-5) /hpf Urine WBC (0-5) /hpf Ur Squamous Epith Cells (0-4) /hpf Urine Mucus (None) /hpf Disposition Clinical Impression: Heart failure, BECCA (acute kidney injury) Disposition: ADMITTED IP TO THIS [facility] Condition: Serious Time of Disposition: 18:17 Decision Date: 05/11/24 Decision Time: 18:18
[2024-05-11 16:07] LABS: Anisocytosis Slight; Basophils % (A) 0 %; Eosinophils % (A) 1 %; HGB 7.9 gm/dL (11.4-16.0); Hypochromasia Moderate; Lymphocytes # (A) 0.4 k/uL (1.0-4.8); Lymphocytes % (A) 14 %; MCH 29.4 pg (25.0-35.0); MCHC 31.4 g/dL (31.0-37.0); MCV 93.7 fL (80.0-100.0); Mean Platelet Volume 12.2; Monocytes # (A) 0.2 k/uL (0-1.0); Monocytes % (A) 8 %; Neutrophils # (A) 2.1 k/uL (1.3-7.7); Neutrophils % (A) 75 %; RBC 2.67 m/uL (3.80-5.40); RDW 17.8 % (11.5-15.5); WBC 2.7 k/uL (3.8-10.6)
[2024-05-11 16:11] LABS: Partial Thromboplastin Time 31.8 sec (22.0-30.0)
[2024-05-11 16:29] LABS: ALT 28 U/L (4-34); AST 39 U/L (14-36); African American GFR (CKD) 16 (>60 ml/min/1.73 sqM); Albumin 2.9 g/dL (3.5-5.0); Alkaline Phosphatase 87 U/L (38-126); Anion Gap 10 mmol/L; Blood Urea Nitrogen 81 mg/dL (7-17); Calcium 7.4 mg/dL (8.4-10.2); Carbon Dioxide 21 mmol/L (22-30); Chloride 93 mmol/L (98-107); Glucose 105 mg/dL (74-99); Non-African American GFR(CKD) 14 (>60 ml/min/1.73 sqM); Potassium 5.6 mmol/L (3.5-5.1); Sodium 124 mmol/L (137-145); Total Bilirubin 0.1 mg/dL (0.2-1.3); Total Protein 5.5 g/dL (6.3-8.2)
--- NOTE | 2024-05-11 16:31 | XR ---
EXAMINATION TYPE: XR chest 2V DATE OF EXAM: 05/11/2024 4:23 PM COMPARISON: Chest radiographs from 04/16/2024. CLINICAL INDICATION: Female, 79 years old with history of Fluid retention; [facility] TECHNIQUE: XR chest 2V Frontal and lateral views of the chest. FINDINGS: Lungs/Pleura: No evidence of focal consolidation or pneumothorax. Blunting of the costophrenic angles is present. Pulmonary vascularity: Pulmonary vascular congestion. Heart/mediastinum: Cardiomediastinal silhouette is enlarged and stable. Musculoskeletal: No acute osseous pathology. Other findings: None Lines/Tubes: IMPRESSION: Cardiomegaly, pulmonary vascular congestion and bilateral pleural effusions. Correlate with BNP for c ongestive heart failure. [facility], , 05/11/2024 4:29 PM
[2024-05-11 16:51] LABS: Platelet Count 77 k/uL (150-450)
[2024-05-11 17:24] LABS: Appearance,Urine Cloudy (Clear); Bilirubin,Urine Negative (Negative); Blood,Urine Negative (Negative); Color,Urine Light Yellow; Glucose,Urine (UA) Negative (Negative); Ketones,Urine Negative (Negative); Leukocyte Esterase,Urine Trace (Negative); Mucus,Urine Rare /hpf; Nitrite,Urine Negative (Negative); PH, Urine 5.5 (5.0-8.0); Protein,Urine 2+ (Negative); RBC,Urine 2 /hpf (0-5); Specific Gravity,Urine 1.015 (1.001-1.035); Squamous Epithelial Cell,Urine 17 /hpf (0-4); Urobilinogen,Urine <2.0 mg/dL (<2.0); WBC,Urine 8 /hpf (0-5)
[2024-05-11] MEDS: FUROSEMIDE 10 MG/ML 2 ML VIAL IV STA (17:40)
[2024-05-11] MEDS ORDERED: NALOXONE 0.4 MG/ML 1 ML VIAL IV PRN (18:11)
[2024-05-11] MEDS: SODIUM CHLORIDE 0.9% 1,000 ML IV SCH (19:03)
[2024-05-11] MEDS: hydrALAZINE HCL 50 MG TAB PO SCH (20:06)
[2024-05-12] MEDS: MORPHINE SULFATE 2 MG/ML SYRINGE IVP PRN (03:40)
[2024-05-12 06:47] LABS: Anisocytosis Slight; Basophils % (A) 0 %; Eosinophils % (A) 1 %; HCT 26.4 % (34.0-46.0); HGB 8.2 gm/dL (11.4-16.0); Hypochromasia Marked; Lymphocytes # (A) 0.6 k/uL (1.0-4.8); Lymphocytes % (A) 18 %; MCH 30.1 pg (25.0-35.0); MCHC 30.9 g/dL (31.0-37.0); MCV 97.3 fL (80.0-100.0); Macrocytosis Slight; Mean Platelet Volume 12.3; Monocytes # (A) 0.3 k/uL (0-1.0); Monocytes % (A) 8 %; Neutrophils # (A) 2.4 k/uL (1.3-7.7); Neutrophils % (A) 71 %; RBC 2.72 m/uL (3.80-5.40); RDW 17.9 % (11.5-15.5); WBC 3.4 k/uL (3.8-10.6)
[2024-05-12 06:49] LABS: Platelet Count 77 k/uL (150-450)
[2024-05-12 07:13] LABS: ALT 28 U/L (4-34); AST 40 U/L (14-36); African American GFR (CKD) 15 (>60 ml/min/1.73 sqM); Albumin 2.7 g/dL (3.5-5.0); Alkaline Phosphatase 81 U/L (38-126); Anion Gap 10 mmol/L; Blood Urea Nitrogen 83 mg/dL (7-17); Calcium 7.3 mg/dL (8.4-10.2); Carbon Dioxide 18 mmol/L (22-30); Chloride 96 mmol/L (98-107); Glucose 86 mg/dL (74-99); Magnesium 2.9 mg/dL (1.6-2.3); Non-African American GFR(CKD) 13 (>60 ml/min/1.73 sqM); Sodium 124 mmol/L (137-145); Total Bilirubin 0.1 mg/dL (0.2-1.3); Total Protein 5.3 g/dL (6.3-8.2)
[2024-05-12] MEDS ORDERED: FUROSEMIDE 40 MG TAB PO SCH (09:00)
[2024-05-12] MEDS ORDERED: DAPAGLIFLOZIN PROPANEDIOL 10 MG TABLET PO SCH (09:00)
[2024-05-12] MEDS ORDERED: amLODIPine 10 MG TAB PO SCH (09:00)
[2024-05-12] MEDS ORDERED: lisinopriL 20 MG TAB PO SCH (09:00)
[2024-05-12] MEDS ORDERED: LOSARTAN 25 MG TAB PO SCH (09:00)
[2024-05-12] MEDS: PIOGLITAZONE 30 MG TAB PO SCH (09:05)
[2024-05-12] MEDS: CHOLECALCIFEROL 25 MCG (1000 IU) TABLET PO SCH (09:05)
[2024-05-12] MEDS: DOPamine DRIP 800 MG in DEXTROSE/WATER 1 250ML.BAG IV SCH (09:12)
[2024-05-12] MEDS: SODIUM CHLORIDE 0.9% 800 ML IV ONE (09:45)
[2024-05-12] MEDS: HEPARIN SODIUM,PORCINE 10,000 UNIT in SODIUM CHLORIDE 0.9% 1,000 ML IRRIGATION ONE (09:45)
[2024-05-12] MEDS: LIDOCAINE 1% INJ 10MG/ML (20 ML MDV) SQ ONE (10:26)
--- NOTE | 2024-05-12 10:46 | P.CRDCN ---
History of Present Illness History of present illness: HISTORY OF PRESENT ILLNESS: This is a 79-year-old female with a past medical history significant for diabetes, congestive heart failure, hypertension, and valvular heart disease. Patient follows in the office with Dr. Andre. We have been asked to see the patient in consultation for bradycardia. Patient examined at the bedside in the emergency room. Patient was recently hospitalized last month for a mechanical fall and CHF exacerbation. Patient also had acute kidney injury at that time. Patient was discharged in stable condition to [facility]. Patient's daughter states that patient was brought back to the hospital yesterday due to increased swelling in her legs. She states that her mother gained 17 pounds in the last week. She states her mother did not have any complaints of chest pain or shortness of breath. The patient is currently lethargic at the time of examination and unable to provide any history. Bedside telemetry reveals bradycardia with a heart rate in the 20s. Patient is also hypotensive with a systolic blood pressure ranging between 8090. DIAGNOSTICS: - EKG reveals junctional bradycardia with heart rate of 32 - Chest xray cardiomegaly, pulmonary vascular congestion, bilateral pleural effusions - Laboratory data: WBC 3.4. Hemoglobin 8.2. Platelet count 77. Sodium 124. Potassium 6.0. BUN 83. Creatinine 3.25. Troponin negative x 1. proBNP 1030. - Current home cardiac medications include amlodipine-benazepril 10-20 mg daily, losartan 25 mg daily, Farxiga 10 mg daily, Lasix 40 mg daily, and hydralazine 50 mg 3 times a day - Most recent echocardiogram obtained in March 2024 revealing ejection fraction 50%, moderate pulmonary hypertension, moderate mitral regurgitation, mild aortic stenosis, mild to moderate tricuspid regurgitation, minimal pericardial effusion and large left pleural effusion - Cardiac catheterization history: denies REVIEW OF SYSTEMS: At the time of my exam: CONSTITUTIONAL: Denies fever or chills. HEENT: Denies blurred vision, vision changes, or eye pain. Denies hemoptysis CARDIOVASCULAR: Denies chest pain. Denies orthopnea. Denies PND. Denies palpitations RESPIRATORY: Denies shortness of breath. GASTROINTESTINAL: Denies abdominal pain. Denies nausea or vomiting. HEMATOLOGIC: Denies bleeding disorders. GENITOURINARY: Denies any blood in urine. SKIN: Denies pruitis. Denies rash. PHYSICAL EXAM: VITAL SIGNS: Reviewed. GENERAL: Well-developed in no acute distress. HEENT: Head is normocephalic. Pupils are equal, round. Sclerae anicteric. Mucous membranes of the mouth are moist. Neck supple. No JVD or thyromegaly LUNGS: Respirations even and unlabored. Lungs essentially clear to auscultation bilaterally. HEART: Bradycardic. Regular rate and rhythm. S1 and S2 heard. Systolic murmur noted ABDOMEN: Soft. Nondistended. Nontender. EXTREMITIES: Normal range of motion. No clubbing or cyanosis. Peripheral pulses intact. 3+ bilateral lower extremity edema NEUROLOGIC: Patient obtunded at the time of examination. ASSESSMENT: Severe bradycardia; junctional rhythm Hyperkalemia Acute kidney injury Hypotension Recent hospitalization for CHF exacerbation, acute kidney injury, and mechanical fall Hypertension Diabetes Obesity: BMI 39.7 Moderate pulmonary hypertension Valvular heart disease including moderate MR, mild , and mild to moderate TR PLAN: Discontinue all antihypertensive and nephrotoxic agents No need to repeat echocardiogram as this was performed in March 2024 Begin dopamine at 5mcg/kg/min. Titrate to maintain MAP greater than 60. Patient to undergo temporary pacemaker implantation today with Dr. Middleton Consult nephrology secondary to worsening kidney function and hyperkalemia Continue telemetry monitoring Patient's prognosis remains guarded Further recommendations pending patient course Nurse practitioner note has been reviewed by physician. Signing provider agrees with the documented findings, assessment, and plan of care documented by FACE WORKER as a scribe. Past Medical History Past Medical History: Cancer, Diabetes Mellitus, GERD/Reflux, Hypertension, Osteoarthritis (OA) Additional Past Medical History / Comment(s): Current skin cancer on lower lip. constipation, frequent falls due to "weak legs" History of Any Multi-Drug Resistant Organisms: MRSA Date of last positivie culture/infection: 2015 MDRO Source:: Back Past Surgical History: Appendectomy, Cholecystectomy, Orthopedic Surgery Additional Past Surgical History / Comment(s): ORIF left ankle, matteo carpal tunne l, matteo cataracts Past Anesthesia/Blood Transfusion Reactions: No Reported Reaction Past Psychological History: No Psychological Hx Reported Smoking Status: Never smoker Past Alcohol Use History: None Reported Past Drug Use History: None Reported - Past Family History Father Family Medical History: Cancer Brother(s) Family Medical History: Cancer Sister(s) Family Medical History: Cancer Daughter(s) Family Medical History: Cancer Medications and Allergies Home Medications Medication Instructions Recorded Confirmed Type amLODIPine BESYLATE/BENAZEPRIL 1 cap PO DAILY 01/07/14 05/11/24 History [Lotrel 10-20 MG] Pioglitazone [Actos] 30 mg PO DAILY 04/16/24 05/11/24 History Dapagliflozin Propanediol [Farxiga] 10 mg PO DAILY #30 tab 04/23/24 05/11/24 Rx Losartan [Cozaar] 25 mg PO DAILY #30 tab 04/23/24 05/11/24 Rx Cholecalciferol [Vitamin D3 (25 100 mcg PO DAILY 05/11/24 05/11/24 History Mcg = 1000 Iu)] Furosemide [Lasix] 40 mg PO DAILY 05/11/24 05/11/24 History hydrALAZINE HCL [Apresoline] 50 mg PO TID@05,13,21 05/11/24 05/11/24 History Allergies Allergy/AdvReac Type Severity Reaction Status Date / Time glipizide Allergy Itching/ban Verified 05/11/24 16:09 h Sulfa (Sulfonamide Allergy Itching Verified 05/11/24 16:09 Antibiotics) Physical Exam Vitals: Vital Signs Temp Pulse Pulse Resp BP BP Pulse Ox 05/12/24 08:31 97.8 F 25 L 15 96/45 94 L 05/12/24 06:00 97.0 F L 26 L 17 94/45 97 05/12/24 05:00 25 L 19 98 05/12/24 04:00 26 L 22 104/58 100 05/12/24 02:00 26 L 14 96/49 96 05/12/24 01:30 24 L 12 88/47 99 05/12/24 01:00 96.4 F L 23 L 19 104/66 97 05/12/24 00:00 32 L 12 98/50 96 05/11/24 23:00 31 L 12 96/50 96 05/11/24 22:00 32 L 13 100/48 95 05/11/24 21:00 28 L 14 97/46 95 05/11/24 20:00 96.5 F L 31 L 16 103/50 96 05/11/24 19:01 30 L 16 106/47 97 05/11/24 17:30 31 L 18 105/49 98 05/11/24 15:07 94.3 F L 33 L 16 107/50 94 L Intake and Output 05/11/24 05/12/24 05/12/24 22:59 06:59 14:59 Other: Weight 95.254 kg Results 05/12/24 06:29 05/12/24 06:29 Cardiac Enzymes 05/11/24 05/11/24 05/12/24 Range/Units 15:35 15:35 06:29 AST 39 H 40 H (14-36) U/L Troponin I <0.012 (0.000-0.034) ng/mL Coagulation 05/11/24 Range/Units 15:35 PT 11.0 (10.0-12.5) sec APTT 31.8 H (22.0-30.0) sec CBC 05/11/24 05/12/24 Range/Units 15:35 06:29 WBC 2.7 L 3.4 L (3.8-10.6) k/uL RBC 2.67 L 2.72 L (3.80-5.40) m/uL Hgb 7.9 L 8.2 L (11.4-16.0) gm/dL Hct 25.0 L 26.4 L (34.0-46.0) % Plt Count 77 L 77 L (150-450) k/uL Comprehensive Metabolic Panel 05/11/24 05/12/24 Range/Units 15:35 06:29 Sodium 124 L 124 L (137-145) mmol/L Potassium 5.6 H 6.0 H (3.5-5.1) mmol/L Chloride 93 L 96 L (98-107) mmol/L Carbon Dioxide 21 L 18 L (22-30) mmol/L BUN 81 H 83 H (7-17) mg/dL Creatinine 3.06 H 3.25 H (0.52-1.04) mg/dL Glucose 105 H 86 (74-99) mg/dL Calcium 7.4 L 7.3 L (8.4-10.2) mg/dL AST 39 H 40 H (14-36) U/L ALT 28 28 (4-34) U/L Alkaline Phosphatase 87 81 (38-126) U/L Total Protein 5.5 L 5.3 L (6.3-8.2) g/dL Albumin 2.9 L 2.7 L (3.5-5.0) g/dL Current Medications Generic Name Dose Route Start Last Admin Trade Name Ian PRN Reason Stop Dose Admin Cholecalciferol 100 mcg 05/12/24 09:00 05/12/24 09:05 Cholecalciferol 25 Mcg (1000 Iu) Tablet PO Not Given DAILY ZAK Sodium Chloride 1,000 mls @ 75 mls/hr 05/11/24 18:15 05/12/24 06:44 Saline 0.9% IV Not Given .[id number] ZAK Dopamine HCl/Dextrose 800 mg/ 250 mls @ 8.93 mls/hr 05/12/24 08:30 05/12/24 09:12 IV Solution IV 5 mcg/kg/min .Q24H ZAK 8.93 mls/hr Administration Protocol 5 MCG/KG/MIN Morphine Sulfate 2 mg 05/12/24 03:28 05/12/24 03:40 Morphine Sulfate 2 Mg/Ml Syringe IVP 2 mg Q4HR PRN Administration Pain/Discomfort Naloxone HCl 0.2 mg 05/11/24 18:11 Naloxone 0.4 Mg/Ml 1 Ml Vial IV Q2M PRN Opioid Reversal Pioglitazone HCl 30 mg 05/12/24 09:00 05/12/24 09:05 Pioglitazone 30 Mg Tab PO Not Given DAILY ZAK Intake and Output 05/11/24 05/12/24 05/12/24 22:59 06:59 14:59 Other: Weight 95.254 kg 05/12/24 06:29 05/12/24 06:29
[2024-05-12] MEDS ORDERED: RX INFO: IV CONTRAST WAS GIVEN 1 EACH MISC MISCELLANE PRN (10:50)
--- NOTE | 2024-05-12 10:54 | P.PCN ---
Date of Procedure: 05/12/24 Description of Procedure: Temporary pacemaker: Indications: Severe bradycardia Patient is a 79-year-old female who presented with worsening renal failure, peripheral edema and change in mental status. She is a DNR. Her case was discussed with her daughter. The patient has severe bradycardia and a rate of 20-29, junctional. I discussed with her the option of temporary pacemaker, the risks and the complications. The daughter is in agreement. Procedure: Patient was brought to the [employer] Softball [employer] in the fasting semisedated state. Using Xylocaine anesthesia and the modified Seldinger technique and using micropuncture catheter the right femoral vein was cannulated. The sheath was exchanged to a 6 [place] sheath. Subsequently a balloontipped 6 [place] temporary pacemaker was advanced positioned in the apex of the right ventricle. Pacing parameters were noted. The pacemaker was secured in place, there was no immediate complications. Duration of sedation 12 minutes.
[2024-05-12 11:20] LABS: Glucose,Whole Blood 113 mg/dL (70-110)
[2024-05-12] MEDS: FUROSEMIDE 10 MG/ML 10 ML VIAL IV STA (12:03)
[2024-05-12] MEDS: SODIUM CHLORIDE 0.9% 1,000 ML IV SCH (12:04)
--- NOTE | 2024-05-12 12:29 | P.NPCON ---
History of Present Illness - Reason for Consult acute renal failure - History of Present Illness patient is a 79-year-old female with history of hypertension, diabetes, CHF, chronic kidney disease stage IIIb with previous creatinine around 1.7 mg/dL in December 2023. Serum creatinine increased to about 2.4-3 mg/dL during his recent hospitalization in April. patient was brought to the ER from [facility] due to worsening lower extremity swelling and worsening labs. Heart rate was noted to be in the 20s to 30s. Potassium was elevated at 5.6 and 6.0 mg/L. Serum creatinine was 3.2 today and serum sodium was 124. 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 No significant urine output documented. Patient is currently comfortable. No acute distress noted. Upon review of medications it is noted that patient was maintained on VIJAYA inhibitor's and angiotensin receptor blockers. These are currently on hold. Past Medical History Past Medical History: Cancer, Diabetes Mellitus, GERD/Reflux, Hypertension, Osteoarthritis (OA) Additional Past Medical History / Comment(s): Current skin cancer on lower lip. constipation, frequent falls due to "weak legs" History of Any Multi-Drug Resistant Organisms: MRSA Date of last positivie culture/infection: 2015 MDRO Source:: Back Past Surgical History: Appendectomy, Cholecystectomy, Orthopedic Surgery Additional Past Surgical History / Comment(s): ORIF left ankle, matteo carpal tunnel, matteo cataracts Past Anesthesia/Blood Transfusion Reactions: No Reported Reaction Past Psychological History: No Psychological Hx Reported Smoking Status: Never smoker Past Alcohol Use History: None Reported Past Drug Use History: None Reported - Past Family History Father Family Medical History: Cancer Brother(s) Family Medical History: Cancer Sister(s) Family Medical History: Cancer Daughter(s) Family Medical History: Cancer Medications and Allergies Home Medications Medication Instructions Recorded Confirmed Type amLODIPine BESYLATE/BENAZEPRIL 1 cap PO DAILY 01/07/14 05/11/24 History [Lotrel 10-20 MG] Pioglitazone [Actos] 30 mg PO DAILY 04/16/24 05/11/24 History Dapagliflozin Propanediol [Farxiga] 10 mg PO DAILY #30 tab 04/23/24 05/11/24 Rx Losartan [Cozaar] 25 mg PO DAILY #30 tab 04/23/24 05/11/24 Rx Cholecalciferol [Vitamin D3 (25 100 mcg PO DAILY 05/11/24 05/11/24 History Mcg = 1000 Iu)] Furosemide [Lasix] 40 mg PO DAILY 05/11/24 05/11/24 History hydrALAZINE HCL [Apresoline] 50 mg PO TID@05,13,21 05/11/24 05/11/24 History Allergies Allergy/AdvReac Type Severity Reaction Status Date / Time glipizide Allergy Itching/ban Verified 05/11/24 16:09 h Sulfa (Sulfonamide Allergy Itching Verified 05/11/24 16:09 Antibiotics) Physical Exam Vitals: Vital Signs Temp Pulse Pulse Resp BP BP Pulse Ox 05/12/24 08:31 97.8 F 25 L 15 96/45 94 L 05/12/24 06:00 97.0 F L 26 L 17 94/45 97 05/12/24 05:00 25 L 19 98 05/12/24 04:00 26 L 22 104/58 100 05/12/24 02:00 26 L 14 96/49 96 05/12/24 01:30 24 L 12 88/47 99 05/12/24 01:00 96.4 F L 23 L 19 104/66 97 05/12/24 00:00 32 L 12 98/50 96 05/11/24 23:00 31 L 12 96/50 96 05/11/24 22:00 32 L 13 100/48 95 05/11/24 21:00 28 L 14 97/46 95 05/11/24 20:00 96.5 F L 31 L 16 103/50 96 05/11/24 19:01 30 L 16 106/47 97 05/11/24 17:30 31 L 18 105/49 98 05/11/24 15:07 94.3 F L 33 L 16 107/50 94 L Intake and Output 05/11/24 05/12/24 05/12/24 22:59 06:59 14:59 Intake Total 146.818 Balance 146.818 Intake: IV 130 Intake, IV Titration 16.818 Amount DOPamine DRIP 800 mg In 16.818 Dextrose/Water 1 250ml. bag @ 5 MCG/KG/MIN 8.93 mls/hr IV .Q24H [facility] Rx#: [id number] Other: Weight 95.254 kg patient is sleeping but arousable No distress Examination of the heart S1 and S2 Examination of the lungs bilateral breath sounds are heard Abdomen is soft obese Examination of lower extremity shows edema 2+ bilaterally. Both lower legs are wrapped Results - Lab Results Most recent lab results Calcium 7.3 mg/dL (8.4-10.2) L 05/12/24 06:29 Magnesium 2.9 mg/dL (1.6-2.3) H 05/12/24 06:29 05/12/24 06:29 05/12/24 06:29 Assessment and Plan Assessment: 1. Acute kidney injury secondary to hypotension and cardiorenal syndrome. No evidence of hydronephrosis on recent ultrasound of the kidneys in April 2024. Left kidney is slightly atrophic. 2. Chronic kidney disease stage IIIa/B with creatinine 1.7 in December 2023 and 1.2 previous to that. Etiology is likely diabetic kidney disease and nephrosclerosis 3. Volume overload 4. Hyperkalemia associated with acute kidney injury and use of VIJAYA inhibitor's along with angiotensin receptor blockers. 6. Hypervolemic hyponatremia 7. Anemia of chronic disease with iron deficiency noted during last admission, status post IV iron. Plan: treat hyperkalemia with insulin and D50. Decrease IV fluids Lasix IV 1 Repeat labs this afternoon Continue dopamine if blood pressure remains low. Add midodrine and patient can take oral meds. Continue off of VIJAYA inhibitor's and angiotensin receptor blockers Thank you for the consultation. We will continue to follow the patient with you during her hospitalization.
[2024-05-12 12:33] LABS: T4, Free (Free Thyroxine) 1.25 ng/dL (0.78-2.19)
[2024-05-12] MEDS: INSULIN REGULAR 100 UNIT/ML VIAL (IV) IV ONE ×2 (12:53→17:38)
[2024-05-12] MEDS: DEXTROSE 50% SYRINGE 50 ML IVP STA (12:57)
[2024-05-12] MEDS: PANTOPRAZOLE 40 MG/10 ML VIAL IVP SCH (13:02)
[2024-05-12] MEDS: HEPARIN SODIUM,PORCINE 5,000 UNIT/ML 1 ML VIAL SQ SCH (13:03)
--- NOTE | 2024-05-12 15:04 | CT ---
EXAMINATION TYPE: CT brain wo con DATE OF EXAM: 05/12/2024 2:47 PM COMPARISON: None. CLINICAL INDICATION: Female, 79 years old with history of ams, unresponsive, AMS, unresponsive TECHNIQUE: Brain: Axial CT images of the brain were obtained with coronal and sagittal reformats created and rev iewed. Contrast used: None. Oral contrast used: None. CT DLP: 1158.4 mGycm, Automated exposure control for dose reduction was used. FINDINGS: Brain: Extra-axial spaces: No abnormal extra-axial fluid collections. Ventricular system: Within normal limits Cerebral parenchyma: No acute intraparenchymal hemorrhage or mass effect. The odom-white junction is well differentiated. Cerebellum: Unremarkable. Mass effect: No evidence of midline shift. Intracranial vasculature: unremarkable Soft tissues: Normal. Calvarium/osseous structures: No depressed skull fracture. Paranasal sinuses and mastoid air cells: Mild scattered paranasal sinus disease. Visualized orbits: Bilateral aphakia IMPRESSION: No acute intracranial process. [facility], , 05/12/2024 3:02 PM
[2024-05-12 15:41] LABS: Potassium 5.8 mmol/L (3.5-5.1)
--- NOTE | 2024-05-12 15:47 | P.CNPUL ---
History of Present Illness Consult date: 05/12/24 Requesting physician: Shey Middleton Reason for consult: other (ICU management) Chief complaint: Increased swelling in lower extremities and increaselethargy History of present illness: This is a 79-year-old female with history of multiple medical problems including congestive heart failure, valvular heart disease, type 2 diabetes, patient is a resident [facility] [place]. Patient was brought into the ER mostly because of the concern that the patient is retaining significant amount of fluid in her lower extremities patient has been developing more lethargy and weakness patient is unable to provide any clinical history. When she was brought into the ER, the patient was noted to be extremely bradycardic, heart rate in the 20s. Patient was also hypotensive with blood pressure in the 80 systolic range. Patient was seen by cardiology on consultation, and she was advised to have a pacemaker implantation. Patient was taken to the cardiac catheterization lab, underwent CVL placement postoperatively patient was noted to be quite lethargic, borderline blood pressure, hardly any urine output, hence patient was admitted to the ICU, and I was asked to see the patient in consultation, patient was also seen by nephrology in consultation. She did receive a dose of Lasix, did not have any significant urinary output after Lasix given. Chest x-ray on this admission showed cardiomegaly with pulmonary vascular congestion and bilateral pleural effusions consistent with congestive heart failure, labs revealed evidence of low sodium of 124 potassium of 6 bicarb is 18 BUN is 83 creatinine 3 .25 thyroid profile showed elevated TSH, and low normal T4. Cortisol level is pending. Patient was seen by nephrology for her acute kidney injury felt to be cardiorenal in nature, patient does have chronic kidney disease stage IIIa/B with creatinine 1.7 in December of 2023. Nephrology is addressing her hypokalemia addressing her fluids and given Lasix without any improvement, considering dopamine if blood pressure remains low. VIJAYA inhibitors are presently on hold Review of Systems ROS unobtainable: due to mental status Past Medical History Past Medical History: Cancer, Diabetes Mellitus, GERD/Reflux, Hypertension, Osteoarthritis (OA) Additional Past Medical History / Comment(s): Current skin cancer on lower lip. constipation, frequent falls due to "weak legs" History of Any Multi-Drug Resistant Organisms: MRSA Date of last positivie culture/infection: 2015 MDRO Source:: Back Past Surgical History: Appendectomy, Cholecystectomy, Orthopedic Surgery Additional Past Surgical History / Comment(s): ORIF left ankle, matteo carpal tunnel, matteo cataracts Past Anesthesia/Blood Transfusion Reactions: No Reported Reaction Additional Past Anesthesia/Blood Transfusion Reaction / Comment(s): pt. unable to respond, recalled RN H&P from recent admission Past Psychological History: No Psychological Hx Reported Additional Psychological History / Comment(s): pt. unable to respond, recalled RN H&P from recent admission Smoking Status: Never smoker Past Alcohol Use History: None Reported Past Drug Use History: None Reported Additional Drug Use History / Comment(s): pt. unable to respond, recalled RN H&P from recent admission - Past Family History Father Family Medical History: Cancer Brother(s) Family Medical History: Cancer Sister(s) Family Medical History: Cancer Daughter(s) Family Medical History: Cancer Medications and Allergies Home Medications Medication Instructions Recorded Confirmed Type amLODIPine BESYLATE/BENAZEPRIL 1 cap PO DAILY 01/07/14 05/11/24 History [Lotrel 10-20 MG] Pioglitazone [Actos] 30 mg PO DAILY 04/16/24 05/11/24 History Dapagliflozin Propanediol [Farxiga] 10 mg PO DAILY #30 tab 04/23/24 05/11/24 Rx Losartan [Cozaar] 25 mg PO DAILY #30 tab 04/23/24 05/11/24 Rx Cholecalciferol [Vitamin D3 (25 100 mcg PO DAILY 05/11/24 05/11/24 History Mcg = 1000 Iu)] Furosemide [Lasix] 40 mg PO DAILY 05/11/24 05/11/24 History hydrALAZINE HCL [Apresoline] 50 mg PO TID@05,13,21 05/11/24 05/11/24 History Allergies Allergy/AdvReac Type Severity Reaction Status Date / Time glipizide Allergy Itching/ban Verified 05/11/24 16:09 h Sulfa (Sulfonamide Allergy Itching Verified 05/11/24 16:09 Antibiotics) Physical Exam Vitals: Vital Signs Temp Pulse Pulse Resp BP BP Pulse Ox 05/12/24 15:15 69 12 92/50 96 05/12/24 15:00 70 9 L 110/55 98 05/12/24 14:48 69 17 104/51 98 05/12/24 14:15 69 10 L 88/52 96 05/12/24 14:00 70 10 L 97/49 97 05/12/24 13:45 69 11 L 96/51 98 05/12/24 13:30 70 14 90/45 97 05/12/24 13:15 70 11 L 85/47 98 05/12/24 13:00 70 14 96/54 96 05/12/24 12:45 69 14 100/61 100 05/12/24 12:30 69 11 L 104/51 99 05/12/24 12:15 69 11 L 102/50 100 05/12/24 12:00 69 12 93/48 99 05/12/24 11:45 69 14 83/42 99 05/12/24 11:30 70 10 L 83/45 99 05/12/24 11:15 70 10 L 102/46 92 L 05/12/24 11:00 90 L 05/12/24 08:31 97.8 F 25 L 15 96/45 94 L 05/12/24 06:00 97.0 F L 26 L 17 94/45 97 05/12/24 05:00 25 L 19 98 05/12/24 04:00 26 L 22 104/58 100 05/12/24 02:00 26 L 14 96/49 96 05/12/24 01:30 24 L 12 88/47 99 05/12/24 01:00 96.4 F L 23 L 19 104/66 97 05/12/24 00:00 32 L 12 98/50 96 05/11/24 23:00 31 L 12 96/50 96 05/11/24 22:00 32 L 13 100/48 95 05/11/24 21:00 28 L 14 97/46 95 05/11/24 20:00 96.5 F L 31 L 16 103/50 96 05/11/24 19:01 30 L 16 106/47 97 05/11/24 17:30 31 L 18 105/49 98 Intake and Output 05/12/24 05/12/24 05/12/24 06:59 14:59 22:59 Intake Total 321.818 Output Total 75 Balance 246.818 Intake: IV 305 Sodium Chloride 0.9% 1, 175 000 ml @ 50 mls/hr IV . Q20H [facility] Rx#:[id number] Intake, IV Titration 16.818 Amount DOPamine DRIP 800 mg In 16.818 Dextrose/Water 1 250ml. bag @ 5 MCG/KG/MIN 8.93 mls/hr IV .Q24H [facility] Rx#: [id number] Output: Urine 75 Uretheral (Martinez) 75 Other: Weight 103.2 kg GENERAL: Revealed 79-year-old female lethargic, tends to fall asleep easily, not in any respiratory distress, on 4 L nasal cannula with O2 sat of 98% Head: Atraumatic normocephalic HEENT: Head is normocephalic. Pupils are equal, round. Sclerae anicteric. Mucous membranes of the mouth are moist. Neck supple. No JVD or thyromegaly LUNGS: Diminished breath sound bilaterally no crackles rhonchi or wheezes HEART: Distant S1-S2, 2/6 systolic murmur throughout the precordium regular rate and rhythm, mostly paced rhythm at this point ABDOMEN: Obese, soft. Nondistended. Nontender. No megaly no rebound no guarding. EXTREMITIES: 3+ bipedal edema and diminished distal pulses bilaterally NEUROLOGIC: Patient is lethargic, arousable but does not follow any instructions seems to be quite confused Psychiatric: Depressed mood, flat affect, abnormal mental status. Skin: No rashes. Results - Laboratory Findings CBC and BMP: 05/12/24 06:29 05/12/24 06:29 PT/INR, D-dimer PT 11.0 sec (10.0-12.5) 05/11/24 15:35 INR 1.0 (<1.2) 05/11/24 15:35 Abnormal lab findings: Abnormal Labs 05/11/24 05/11/24 05/11/24 15:35 15:35 15:35 WBC 2.7 L RBC 2.67 L Hgb 7.9 L Hct 25.0 L MCHC RDW 17.8 H Plt Count 77 L Lymphocytes # 0.4 L APTT 31.8 H Sodium Potassium Chloride Carbon Dioxide BUN Creatinine Glucose POC Glucose (mg/dL) Calcium Magnesium Total Bilirubin AST Total Protein Albumin TSH Urine Appearance Cloudy H Urine Protein 2+ H Ur Leukocyte Esterase Trace H Urine WBC 8 H Ur Squamous Epith Cells 17 H Urine Mucus Rare H 05/11/24 05/12/24 05/12/24 15:35 06:29 06:29 WBC 3.4 L RBC 2.72 L Hgb 8.2 L Hct 26.4 L MCHC 30.9 L RDW 17.9 H Plt Count 77 L Lymphocytes # 0.6 L APTT Sodium 124 L 124 L Potassium 5.6 H 6.0 H Chloride 93 L 96 L Carbon Dioxide 21 L 18 L BUN 81 H 83 H Creatinine 3.06 H 3.25 H Glucose 105 H POC Glucose (mg/dL) Calcium 7.4 L 7.3 L Magnesium 2.9 H Total Bilirubin 0.1 L 0.1 L AST 39 H 40 H Total Protein 5.5 L 5.3 L Albumin 2.9 L 2.7 L TSH Urine Appearance Urine Protein Ur Leukocyte Esterase Urine WBC Ur Squamous Epith Cells Urine Mucus 05/12/24 05/12/24 06:29 11:19 WBC RBC Hgb Hct MCHC RDW Plt Count Lymphocytes # APTT Sodium Potassium Chloride Carbon Dioxide BUN Creatinine Glucose POC Glucose (mg/dL) 113 H Calcium Magnesium Total Bilirubin AST Total Protein Albumin TSH 10.900 H Urine Appearance Urine Protein Ur Leukocyte Esterase Urine WBC Ur Squamous Epith Cells Urine Mucus - Diagnostic Findings Chest x-ray: image reviewed (As noted in HPI suggestive of mild congestive heart failure) Assessment and Plan Assessment: Impression: Profound bradycardia/junctional rhythm requiring pacemaker placement Acute kidney injury, likely cardiorenal in nature Hyperkalemia secondary to acute kidney injury History of chronic kidney disease Hypotension secondary to bradycardia History of congestive heart failure/recent hospitalization for CHF Benign essential hypertension Type 2 diabetes History of secondary pulmonary hypertension History of valvular heart disease including moderate mitral regurgitation and mild aortic stenosis. History of GERD History of degenerative joint disease Suspect underlying dementia. Recommendation: Continue to monitor the patient in the ICU Hold blood pressure medications since the patient is hypotensive Patient is status post pacemaker placement by Dr. Middleton she has now a paced rhythm at 70 bpm. Continue to address hyperkalemia and electrolyte imbalance Check serum cortisol level Consider dopamine if blood pressure remains low/marginal Consider midodrine this is being addressed by nephrology Continue to monitor renal status, patient may or may not require hemodialysis at this point patient is oliguric and did not improve with Lasix Continue to monitor in the ICU Overall prognosis extremely poor and guarded Will continue to follow Time with Patient: Greater than 30
--- NOTE | 2024-05-12 16:34 | P.CNNES ---
History of Present Illness Consult date: 05/12/24 Requesting physician: Rose King Reason for Consult: ams, decreased loc, cva??? History of Present Illness: Patient is a 79-year-old female came to the hospital by ambulance yesterday at 3:05 PM. Patient at present is severely encephalopathic, not able to provide any history at this time. History obtained from the EMS flowsheet and the nursing staff. As per EMS flowsheet, it was reported that patient had a stat lab performed the day prior to the day of admission, which came back abnormal. Patient's doctor wanted her to be transported to the hospital. Patient was alert, smiling, oriented x 3 which is her normal baseline. Her vitals at the scene was blood pressure 113/49, pulse rate 74 respiration 18 saturation 97%. Blood test shows WBC 2.7 hemoglobin 7.9, platelets 77. INR 1.0. Sodium 124, which has gone down to 123 today. BUN 81, creatinine 3.06. TSH 10.9 with normal free T41.25. UA is negative. Chest x-ray showed cardiomegaly, pulmonary vascular congestion and bilateral pleural effusion. Correlate with BNP for CHF. EKG showed atrial fibrillation with slow ventricular response. Patient underwent placement of temporary pacemaker for severe bradycardia.. Her heart rate was going down to 20-29. Patient had a CT head, which revealed no acute intracranial process. I perso wiley reviewed CT head, agree with the findings. Basilar artery, vertebral arteries, MCA arteries all appears patent without any abnormal hyperdensity. Per nursing report, patient was recently admitted to the hospital from 04/16/2024 and discharged on 04/24/2024 for acute CHF with preserved EF, acute kidney injury secondary to ATN, secondary to cardiorenal syndrome, acute kidney injury on chronic kidney disease, hypertension and volume overload. She was went to [facility], and now came back to the hospital with above complaints. She was having decreased urine output. Nurse reports that since in the hospital, she has been very lethargic, altered mental status, and per daughter's report, it has been going on off and on for last couple weeks. She is very fatigued, not eating, not taking conversation as she used to do before. Patient's home medications include amlodipine, Actos, losartan, Farxiga, vitamin D3, Lasix and hydralazine. Review of Systems ROS unobtainable: due to mental status Past Medical History Past Medical History: Cancer, Diabetes Mellitus, GERD/Reflux, Hypertension, Os teoarthritis (OA) Additional Past Medical History / Comment(s): Current skin cancer on lower lip. constipation, frequent falls due to "weak legs" History of Any Multi-Drug Resistant Organisms: MRSA Date of last positivie culture/infection: 2015 MDRO Source:: Back Past Surgical History: Appendectomy, Cholecystectomy, Orthopedic Surgery Additional Past Surgical History / Comment(s): ORIF left ankle, matteo carpal tunnel, matteo cataracts Past Anesthesia/Blood Transfusion Reactions: No Reported Reaction Additional Past Anesthesia/Blood Transfusion Reaction / Comment(s): pt. unable to respond, recalled RN H&P from recent admission Past Psychological History: No Psychological Hx Reported Additional Psychological History / Comment(s): pt. unable to respond, recalled RN H&P from recent admission Smoking Status: Never smoker Past Alcohol Use History: None Reported Past Drug Use History: None Reported Additional Drug Use History / Comment(s): pt. unable to respond, recalled RN H&P from recent admission - Past Family History Father Family Medical History: Cancer Brother(s) Family Medical History: Cancer Sister(s) Family Medical History: Cancer Daughter(s) Family Medical History: Cancer Medications and Allergies Home Medications Medication Instructions Recorded Confirmed Type amLODIPine BESYLATE/BENAZEPRIL 1 cap PO DAILY 01/07/14 05/11/24 History [Lotrel 10-20 MG] Pioglitazone [Actos] 30 mg PO DAILY 04/16/24 05/11/24 History Dapagliflozin Propanediol [Farxiga] 10 mg PO DAILY #30 tab 04/23/24 05/11/24 Rx Losartan [Cozaar] 25 mg PO DAILY #30 tab 04/23/24 05/11/24 Rx Cholecalciferol [Vitamin D3 (25 100 mcg PO DAILY 05/11/24 05/11/24 History Mcg = 1000 Iu)] Furosemide [Lasix] 40 mg PO DAILY 05/11/24 05/11/24 History hydrALAZINE HCL [Apresoline] 50 mg PO TID@05,13,21 05/11/24 05/11/24 History Allergies Allergy/AdvReac Type Severity Reaction Status Date / Time glipizide Allergy Itching/ban Verified 05/11/24 16:09 h Sulfa (Sulfonamide Allergy Itching Verified 05/11/24 16:09 Antibiotics) Physical Examination - Vital Signs Vital Signs: Vital Signs Temp Pulse Pulse Resp BP BP Pulse Ox 05/12/24 15:15 69 12 92/50 96 05/12/24 15:00 70 9 L 110/55 98 05/12/24 14:48 69 17 104/51 98 05/12/24 14:15 69 10 L 88/52 96 05/12/24 14:00 70 10 L 97/49 97 05/12/24 13:45 69 11 L 96/51 98 05/12/24 13:30 70 14 90/45 97 05/12/24 13:15 70 11 L 85/47 98 05/12/24 13:00 70 14 96/54 96 05/12/24 12:45 69 14 100/61 100 05/12/24 12:30 69 11 L 104/51 99 05/12/24 12:15 69 11 L 102/50 100 05/12/24 12:00 69 12 93/48 99 05/12/24 11:45 69 14 83/42 99 05/12/24 11:30 70 10 L 83/45 99 05/12/24 11:15 70 10 L 102/46 92 L 05/12/24 11:00 90 L 05/12/24 08:31 97.8 F 25 L 15 96/45 94 L 05/12/24 06:00 97.0 F L 26 L 17 94/45 97 05/12/24 05:00 25 L 19 98 05/12/24 04:00 26 L 22 104/58 100 05/12/24 02:00 26 L 14 96/49 96 05/12/24 01:30 24 L 12 88/47 99 05/12/24 01:00 96.4 F L 23 L 19 104/66 97 05/12/24 00:00 32 L 12 98/50 96 05/11/24 23:00 31 L 12 96/50 96 05/11/24 22:00 32 L 13 100/48 95 05/11/24 21:00 28 L 14 97/46 95 05/11/24 20:00 96.5 F L 31 L 16 103/50 96 05/11/24 19:01 30 L 16 106/47 97 05/11/24 17:30 31 L 18 105/49 98 Intake and Output 05/12/24 05/12/24 05/12/24 06:59 14:59 22:59 Intake Total 321.818 Output Total 75 Balance 246.818 Intake: IV 305 Sodium Chloride 0.9% 1, 175 000 ml @ 50 mls/hr IV . Q20H [facility] Rx#:[id number] Intake, IV Titration 16.818 Amount DOPamine DRIP 800 mg In 16.818 Dextrose/Water 1 250ml. bag @ 5 MCG/KG/MIN 8.93 mls/hr IV .Q24H [facility] Rx#: [id number] Output: Urine 75 Uretheral (Martinez) 75 Other: Weight 103.2 kg Patient is an elderly female, who is laying in the bed, appears somewhat listless, pale. Patient has oxygen on. Patient is snoring. Patient is not on any infusions. Patient is very groggy, encephalopathic. Patient is following minimal directions as below. Patient is sleeping, but does wake up to calling her name loudly. Patient's speech is somewhat slurred, almost like "thick tongue". Patient perseverates on "ink pen", and the same she says for eyeglasses. She could not tell what month or year is it, or what city or state she lives in. Patient not cooperating to check for repetition. Attention, concentration and fund of knowledge are all severely limited. On cranial nerve examination, pupils are equal, round and reacting to light, visual donovan could not be tested. Extraocular muscles are intact with no nystagmus. Face is symmetric, patient would not protrude her tongue. Lower cranial nerves cannot be tested. Her hearing appears slightly decreased. On muscle strength testing, patient did not give full effort. She appears generalized weak. Her engineering illustrator was about 4 bilaterally, able to lift her arms at the elbow at 45 degrees and held it there. She brings her arms down equally, rapidly on checking for pronator drift. Some myoclonic jerks noted of the hands. Patient only able to wiggle her toes slightly. Deep tendon reflexes are symmetric, absent and plantars are flat. Sensory functions cannot be assessed. Patient response with facial grimacing bilaterally with painful stimuli. Cerebellar function cannot be assessed due to patient's noncooperation. Tone and bulk of muscles appears equal. Gait deferred.. On general examination, there is no carotid bruit or murmur, S1-S2 audible. Chest is clear on consultation. Abdomen is soft nontender. No organomegaly, bowel sounds present. Patient has moderate peripheral edema. Results - Laboratory Findings CBC and BMP: 05/13/24 05:48 05/13/24 06:25 Abnormal Lab Findings: Abnormal Labs 05/11/24 05/11/24 05/11/24 15:35 15:35 15:35 WBC 2.7 L RBC 2.67 L Hgb 7.9 L Hct 25.0 L MCHC RDW 17.8 H Plt Count 77 L Lymphocytes # 0.4 L APTT 31.8 H Sodium Potassium Chloride Carbon Dioxide BUN Creatinine Glucose POC Glucose (mg/dL) Calcium Magnesium Total Bilirubin AST Total Protein Albumin TSH Urine Appearance Cloudy H Urine Protein 2+ H Ur Leukocyte Esterase Trace H Urine WBC 8 H Ur Squamous Epith Cells 17 H Urine Mucus Rare H 05/11/24 05/12/24 05/12/24 15:35 06:29 06:29 WBC 3.4 L RBC 2.72 L Hgb 8.2 L Hct 26.4 L MCHC 30.9 L RDW 17.9 H Plt Count 77 L Lymphocytes # 0.6 L APTT Sodium 124 L 124 L Potassium 5.6 H 6.0 H Chloride 93 L 96 L Carbon Dioxide 21 L 18 L BUN 81 H 83 H Creatinine 3.06 H 3.25 H Glucose 105 H POC Glucose (mg/dL) Calcium 7.4 L 7.3 L Magnesium 2.9 H Total Bilirubin 0.1 L 0.1 L AST 39 H 40 H Total Protein 5.5 L 5.3 L Albumin 2.9 L 2.7 L TSH Urine Appearance Urine Protein Ur Leukocyte Esterase Urine WBC Ur Squamous Epith Cells Urine Mucus 05/12/24 05/12/24 05/12/24 06:29 11:19 15:14 WBC RBC Hgb Hct MCHC RDW Plt Count Lymphocytes # APTT Sodium 123 L Potassium 5.8 H Chloride Carbon Dioxide 18 L BUN Creatinine Glucose POC Glucose (mg/dL) 113 H Calcium Magnesium Total Bilirubin AST Total Protein Albumin TSH 10.900 H Urine Appearance Urine Protein Ur Leukocyte Esterase Urine WBC Ur Squamous Epith Cells Urine Mucus Assessment and Plan Assessment: * Altered mental status, likely due to toxic metabolic encephalopathy. Reasons multifactorial, as mentioned below. * Acute on chronic renal failure * Hyponatremia * Hyperkalemia * Pancytopenia * CHF * New onset atrial fibrillation with slow ventricular response. Cardiology calling it as junctional rhythm with bradycardia. * Symptomatic bradycardia, status post TVP * Obesity * Peripheral edema Plan: * Patient probably has s presented with metabolic encephalopathy. CT head revealed no acute process. We will check EEG rule out any epileptiform activity, assess for encephalopathy. * Patient has developed new onset atrial fibrillation versus junctional rhythm. We will defer to cardiology/IM regarding need for anticoagulation. Patient does have thrombocytopenia with platelets of 77, therefore at risk for anticoagulation. * 2D echo from 03/27/2024 revealed LVEF 50%, mildly increased septal wall thickness, mildly increased posterior wall thickness. Mildly reduced global left ventricular systolic function. No obvious regional wall motion abnormalities. Moderate MR. Mild . Mild to moderate TR. * Medical management as per IM and other specialties on board. * We will discuss with family members when available, to get collateral history about her baseline status. * Discussed with nursing staff in detail. * Neurology will follow. Thank you for the consult.
[2024-05-12] MEDS: DEXTROSE 50% SYRINGE 50 ML IVP ONE (17:37)
[2024-05-12] MEDS: SODIUM BICARB 8.4% 50 ML SYR (1 MEQ/ML) IV ONE (17:37)
--- NOTE | 2024-05-12 19:46 | XR ---
EXAMINATION TYPE: XR chest 1V portable DATE OF EXAM: 05/12/2024 5:41 PM COMPARISON: None. CLINICAL INDICATION: Female, 79 years old with history of CHF, TECHNIQUE: XR chest 1V portable view(s) obtained. FINDINGS: The heart size is mildly prominent. The pulmonary vasculature is normal. Small left pleural effusion is present. Moderate right pleural fluid collection may be present IMPRESSION: 1. Bilateral pleural effusions larger on the right. Follow-up is recommended [facility], , 05/12/2024 7:44 PM
--- NOTE | 2024-05-12 20:39 | HP ---
HISTORY AND PHYSICAL CHIEF COMPLAINT: Abnormal labs. HISTORY OF PRESENT ILLNESS: This is a 79-year-old woman with a past medical history of multiple medical problems including CHF, kidney failure, who presented to the ER from [facility] with abnormal labs. The patient was found to have hemoglobin 8.2, sodium 124, creatinine is 3.25. The patient is confused. The patient also had symptomatic bradycardia with a heart rate 20. Temporary transvenous pacemaker has been initiated. The patient also had features of hypothyroidism. TSH is elevated to 10.900. The patient has some slurring of speech and some facial deviation on the right side also. There is no history of any fever, rigors, or chills. The chest x-ray which I reviewed personally showed evidence of congestion and possibly left pleural effusion. EKG showed apparently atrial fibrillation with slow ventricular rate. PAST MEDICAL HISTORY: Reviewed include diabetes mellitus type 2, DJD, CHF. Rest of the history and rest of the chart is also reviewed. HOME MEDICATIONS: Reviewed, which include Cozaar, rest of the medications and chart is reviewed. ALLERGIES: Reviewed include glipizide. FAMILY HISTORY: Could not be taken because of the change in mental status. SOCIAL HISTORY: Could not be taken because of the change in mental status. REVIEW OF SYSTEMS: Could not be taken because of the change in mental status. PHYSICAL EXAMINATION: VITAL SIGNS: Pulse is 25, blood pressure 96/44, respirations 15. HEENT: Conjunctivae normal. Oral mucosa moist. CARDIOVASCULAR: S1, S2, irregular. RESPIRATIONS: Breath sounds diminished at the bases. A few scattered rhonchi. ABDOMEN: Soft, nontender. LEGS: No edema. NERVOUS SYSTEM: Diffusely weak. Right facial deviation. SKIN: No ulcer, rash, bleeding. JOINTS: No active deforming arthropathy. LABORATORY DATA: Sodium 130, potassium 6. Rest of the labs are noted. ASSESSMENT: 1. Change in mental status, metabolic encephalopathy, possibly secondary to acute on chronic renal failure. 2. Severe symptomatic bradycardia, status post temporary transvenous pacemaker. 3. Rule out acute stroke. 4. Pancytopenia of undetermined etiology. 5. Hyponatremia. 6. Hyperkalemia. 7. Elevated TSH, rule out hypothyroidism. 8. Diabetes mellitus, type 2. 9. Degenerative joint disease. 10.Congestive heart failure. 11.No code. RECOMMENDATIONS AND DISCUSSION: This is a 79-year-old woman, who presented with multiple complex medical issues, we will monitor the patient closely. I would recommend to continue the current medications, continue symptomatic treatment. Continue to monitor in ICU. I would also recommend monitor blood pressure closely. Hold off the blood pressure medications and any beta blockers. Temporary transvenous pacemaker by Cardiology. We will also obtain a Neurology consultation, neuro checks as well as CT of the brain also to rule out the possibility of acute stroke. Repeat labs will be ordered. DVT prophylaxis. Home medications will be reviewed. Prognosis extremely guarded. Further recommendations to follow. The patient is no code. MMODL / IJN: [id number] /
[2024-05-13] MEDS: NOREPINEPHRINE 4 MG in SODIUM CHLORIDE 0.9% 250 ML IV SCH (00:28)
[2024-05-13 05:37] VITALS: TEMP 96
[2024-05-13] MEDS: ONDANSETRON 4 MG/2 ML VIAL IVP STA (06:35)
[2024-05-13 06:51] LABS: ALT 31 U/L (4-34); AST 43 U/L (14-36); African American GFR (CKD) 14 (>60 ml/min/1.73 sqM); Albumin 3.3 g/dL (3.5-5.0); Alkaline Phosphatase 129 U/L (38-126); Anion Gap 9 mmol/L; Blood Urea Nitrogen 86 mg/dL (7-17); Calcium 7.6 mg/dL (8.4-10.2); Carbon Dioxide 20 mmol/L (22-30); Chloride 96 mmol/L (98-107); Non-African American GFR(CKD) 12 (>60 ml/min/1.73 sqM); Sodium 125 mmol/L (137-145); Total Bilirubin 0.4 mg/dL (0.2-1.3); Total Protein 6.1 g/dL (6.3-8.2)
[2024-05-13 06:52] LABS: Glucose 48 mg/dL (74-99); Potassium 6.6 mmol/L (3.5-5.1)
[2024-05-13] MEDS ORDERED: DEXTROSE 50% SYRINGE 50 ML IVP PRN (06:57)
[2024-05-13 06:58] LABS: Anisocytosis Slight; HCT 31.6 % (34.0-46.0); Hypochromasia Moderate; MCH 29.7 pg (25.0-35.0); MCHC 31.3 g/dL (31.0-37.0); Mean Platelet Volume 12.1; RBC 3.32 m/uL (3.80-5.40); RDW 17.6 % (11.5-15.5); WBC 14.5 k/uL (3.8-10.6)
[2024-05-13] MEDS: DEXTROSE 50% SYRINGE 50 ML IVP PRN (06:59)
--- NOTE | 2024-05-13 06:59 | CA ---
Transthoracic Echo Report Name: Jessica Joyner Age: 79 Gender: F : 1945 Exam Date: 05/12/2024 13:17 Exam Location: [facility] Ht (in): 61 Wt (lb): 210 Ordering Physician: Shey Middleton MD ([id number]) Attending/Referring Phys: Client Technical Specialist Denice Fletcher RDCS Procedure CPT: Indications: bradyacardia Cardiac Hx: Technical Quality: Good Contrast 1: Total Dose (mL): Contrast 2: Total Dose (mL): MEASUREMENTS (Male / Female) Normal Values 2D ECHO LV Diastolic Diameter PLAX 4.8 cm 4.2 - 5.9 / 3.9 - 5.3 cm LV Systolic Diameter PLAX 2.9 cm IVS Diastolic Thickness 1.0 cm 0.6 - 1.0 / 0.6 - 0.9 cm LVPW Diastolic Thickness 1.3 cm 0.6 - 1.0 / 0.6 - 0.9 cm LV Relative Wall Thickness 0.5 LVOT Diameter 2.0 cm LV Diastolic Volume MOD BP 116.3 cm??? 67 - 155 / 56 - 104 cm??? LV Systolic Volume MOD BP 48.0 cm??? 22 - 58 / 19 - 49 cm??? LV Ejection Fraction MOD BP 58.7 % >= 55 % LV Cardiac Index MOD BP 2631.3 cm???/min???m??? LV Diastolic Volume MOD 4C 111.1 cm??? LV Systolic Volume MOD 4C 49.4 cm??? LV Ejection Fraction MOD 4C 55.5 % LV Cardiac Index MOD 4C 2377.5 cm???/min???m??? LV Diastolic Length 4C 8.3 cm LV Systolic Length 4C 7.1 cm LV Diastolic Volume MOD 2C 120.4 cm??? LV Systolic Volume MOD 2C 42.1 cm??? LV Ejection Fraction MOD 2C 65.0 % LV Cardiac Index MOD 2C 3014.2 cm???/min???m??? LV Diastolic Length 2C 8.2 cm LV Systolic Length 2C 6.3 cm DOPPLER AV Peak Velocity 212.9 cm/s AV Peak Gradient 18.1 mmHg AV Mean Velocity 124.7 cm/s AV Mean Gradient 7.7 mmHg AV Velocity Time Integral 51.8 cm LVOT Peak Velocity 110.1 cm/s LVOT Peak Gradient 4.9 mmHg LVOT Velocity Time Integral 23.9 cm LVOT Stroke Volume 73.7 cm??? LVOT Stroke Volume Index 38.2 ml/m??? LVOT Cardiac Index 2837.2 cm???/min???m??? AV Area Cont Eq vti 1.4 cm??? AV Area Cont Eq pk 1.6 cm??? MV Peak Velocity 129.3 cm/s MV Peak Gradient 6.7 mmHg MV Mean Velocity 83.7 cm/s MV Mean Gradient 3.1 mmHg MV Velocity Time Integral 30.9 cm TR Peak Velocity 294.1 cm/s TR Peak Gradient 34.6 mmHg Right Atrial Pressure 15.0 mmHg Pulmonary Artery Systolic Pressu 49.6 mmHg Right Ventricular Systolic Press 49.6 mmHg FINDINGS Left Ventricle Left ventricular ejection fraction is estimated at 55-60 %. Moderately increased posterior wall thickness. Mildly increased left ventricular diastolic volume. No obvious regional wall motion abnormalities. Right Ventricle Mild right ventricular dilatation with mildly reduced function. Moderate pulmonary hypertension. Right Atrium Right atrial dilatation. Left Atrium Left atrial dilatation. Mitral Valve Mitral valve thickened. Mitral annular calcification. No evidence for mitral valve prolapse. No mitral stenosis. [id number] mitral regurgitation. Aortic Valve Trileaflet aortic valve. Aortic valve sclerosis. No aortic stenosis. No aortic regurgitation. Tricuspid Valve Structurally normal tricuspid valve. No tricuspid stenosis. [id number] tricuspid regurgitation. Pulmonic Valve Pulmonic valve not assessed. Pericardium No pericardial mass. Pleural effusion. Aorta Aortic root and proximal ascending aorta not assessed. CONCLUSIONS Normal biventricular systolic function Moderate left ventricular hypertrophy Mild to moderate mitral regurgitation and thickened mitral valve leaflets Aortic sclerosis with no stenosis or insufficiency Moderate pulmonary hypertension Mildly dilated RV Mild to moderate TR No pericardial effusion Previewed by: Dr. Cesar Ritter MD (Electronically Signed) Final Date: 13 May 2024 06:58
[2024-05-13 07:00] LABS: HGB 9.9 gm/dL (11.4-16.0); Platelet Count 156 k/uL (150-450)
[2024-05-13 07:10] VITALS: BP 145/53; PULSE 72; RESP 19
[2024-05-13 07:17] LABS: Glucose,Whole Blood 137 mg/dL (70-110)
[2024-05-13 07:27] LABS: Lymphocytes # (M) 0.58 k/uL (1.0-4.8); Monocytes # (M) 1.45 k/uL (0-1.0); Neutrophils # (M) 12.62 k/uL (1.3-7.7); Neutrophils % (M) 87 %; Nucleated Red Blood Cells 0 /100 WBC (0-0); Total Cells Counted 200
[2024-05-13 07:28] LABS: Hypochromasia (M) Present
--- NOTE | 2024-05-13 07:51 | P.PN ---
Subjective Progress Note Date: 05/13/24 PROGRESS NOTE The patient is a 79-year-old female who presented yesterday with change in mental status, worsening edema, severe bradycardia and worsening renal functions. She underwent temporary pacemaker placement. During the night she had episodes that are suggestive of aspiration. Earlier in the morning she has her underlying rhythm at a rate of 70, in sinus. She has no urine output. She is on IV dopamine and Levophed to maintain her blood pressure. There is no evidence of atrial fibrillation or ventricular tachycardia. Her echocardiogram showed a preserved systolic function. She remains unresponsive to verbal stimulation and not following command. She was seen by nephrology as well as neurology. Medications: IV dopamine, IV norepinephrine PHYSICAL EXAMINATION: Blood pressure 145/50 heart rate 70 LUNGS: Clear to auscultation anteriorly HEART: Regular rate and rhythm, S1, S2. No S3. Systolic ejection murmur ABDOMEN: Soft, nontender, obese, no organomegaly EXTREMETIES: +3 edema LAB: Potassium 6.6, BUN 86, creatinine 3.51, hemoglobin 9.9, WBC 14.5 IMPRESSION: 1. Junctional bradycardia, improved 2. Acute on chronic kidney injury with anuria 3. Hypotension requiring vasopressors 4. Worsening mental status 5. History of hypertension 6. Hyperkalemia PLAN: 1. Try to wean IV dopamine 2. 1 dose of IV furosemide to see response 3. We will discuss with the family the plan for care, patient is DNR and the family was considering comfort care 4. Prognosis is guarded Objective - Vital Signs Vital signs: Vital Signs Temp 96.0 F L 05/13/24 04:00 Pulse 72 05/13/24 07:00 Resp 19 05/13/24 07:00 BP 145/53 05/13/24 07:00 Pulse Ox 93 L 05/13/24 07:00 FiO2 Intake & Output 05/12/24 05/13/24 05/13/24 18:59 06:59 18:59 Intake Total 521.818 782.268 50 Output Total 90 105 100 Balance 431.818 677.268 -50 Weight 103.2 kg 103.8 kg Intake: IV 505 600 50 Sodium Chloride 0.9% 1, 375 600 50 000 ml @ 50 mls/hr IV . Q20H [facility] Rx#:[id number] Intake, IV Titration 16.818 182.268 Amount DOPamine DRIP 800 mg In 16.818 79.776 Dextrose/Water 1 250ml. bag @ 5 MCG/KG/MIN 8.93 mls/hr IV .Q24H [facility] Rx#: [id number] Norepinephrine 4 mg In 102.492 Sodium Chloride 0.9% 250 ml @ 0.03 MCG/KG/MIN 11. 796 mls/hr IV .[id number] [facility] Rx#:[id number] Output: Urine 90 5 0 Uretheral (Martinez) 75 Emesis 100 100 Other: Voiding Method Indwelling Catheter Indwelling Catheter - Labs CBC & Chem 7: 05/13/24 05:48 05/13/24 06:25 Labs: Abnormal Lab Results - Last 24 Hours (Table) 05/12/24 05/12/24 05/12/24 Range/Units 06:29 11:19 12:32 WBC (3.8-10.6) k/uL RBC (3.80-5.40) m/uL Hgb (11.4-16.0) gm/dL Hct (34.0-46.0) % RDW (11.5-15.5) % Neutrophils # (Manual) (1.3-7.7) k/uL Lymphocytes # (Manual) (1.0-4.8) k/uL Monocytes # (Manual) (0-1.0) k/uL Sodium (137-145) mmol/L Potassium (3.5-5.1) mmol/L Chloride (98-107) mmol/L Carbon Dioxide (22-30) mmol/L BUN (7-17) mg/dL Creatinine (0.52-1.04) mg/dL Glucose (74-99) mg/dL POC Glucose (mg/dL) 113 H (70-110) mg/dL Calcium (8.4-10.2) mg/dL AST (14-36) U/L Alkaline Phosphatase (38-126) U/L Total Protein (6.3-8.2) g/dL Albumin (3.5-5.0) g/dL TSH 10.900 H (0.465-4.680) mIU/L Free T3 pg/mL 1.10 L (2.30-4.20) pg/mL 05/12/24 05/13/24 05/13/24 Range/Units 15:14 05:48 06:25 WBC 14.5 H (3.8-10.6) k/uL RBC 3.32 L (3.80-5.40) m/uL Hgb 9.9 L D (11.4-16.0) gm/dL Hct 31.6 L (34.0-46.0) % RDW 17.6 H (11.5-15.5) % Neutrophils # (Manual) 12.62 H (1.3-7.7) k/uL Lymphocytes # (Manual) 0.58 L (1.0-4.8) k/uL Monocytes # (Manual) 1.45 H (0-1.0) k/uL Sodium 123 L 125 L (137-145) mmol/L Potassium 5.8 H 6.6 H* (3.5-5.1) mmol/L Chloride 96 L (98-107) mmol/L Carbon Dioxide 18 L 20 L (22-30) mmol/L BUN 86 H (7-17) mg/dL Creatinine 3.51 H (0.52-1.04) mg/dL Glucose 48 L* (74-99) mg/dL POC Glucose (mg/dL) (70-110) mg/dL Calcium 7.6 L (8.4-10.2) mg/dL AST 43 H (14-36) U/L Alkaline Phosphatase 129 H (38-126) U/L Total Protein 6.1 L (6.3-8.2) g/dL Albumin 3.3 L (3.5-5.0) g/dL TSH (0.465-4.680) mIU/L Free T3 pg/mL (2.30-4.20) pg/mL 05/13/24 Range/Units 07:15 WBC (3.8-10.6) k/uL RBC (3.80-5.40) m/uL Hgb (11.4-16.0) gm/dL Hct (34.0-46.0) % RDW (11.5-15.5) % Neutrophils # (Manual) (1.3-7.7) k/uL Lymphocytes # (Manual) (1.0-4.8) k/uL Monocytes # (Manual) (0-1.0) k/uL Sodium (137-145) mmol/L Potassium (3.5-5.1) mmol/L Chloride (98-107) mmol/L Carbon Dioxide (22-30) mmol/L BUN (7-17) mg/dL Creatinine (0.52-1.04) mg/dL Glucose (74-99) mg/dL POC Glucose (mg/dL) 137 H (70-110) mg/dL Calcium (8.4-10.2) mg/dL AST (14-36) U/L Alkaline Phosphatase (38-126) U/L Total Protein (6.3-8.2) g/dL Albumin (3.5-5.0) g/dL TSH (0.465-4.680) mIU/L Free T3 pg/mL (2.30-4.20) pg/mL
[2024-05-13] MEDS ORDERED: MORPHINE SULFATE 2 MG/ML SYRINGE IV PRN (08:03)
[2024-05-13] MEDS: MORPHINE SULFATE 4 MG/ML SYRINGE IV PRN (08:11)
[2024-05-13] MEDS ORDERED: SCOPOLAMINE 1 MG/72 HR PATCH TRANSDERM SCH (08:15)
[2024-05-13] MEDS ORDERED: MORPHINE SULFATE (100 MG/2 ML) 100 MG in SODIUM CHLORIDE 0.9% 100 ML IV SCH (08:15)
[2024-05-13] MEDS: FUROSEMIDE 10 MG/ML 10 ML VIAL IV STA (08:21)
--- NOTE | 2024-05-13 10:44 | XR ---
EXAMINATION TYPE: XR chest 1V portable DATE OF EXAM: 05/13/2024 5:29 AM COMPARISON: 05/12/2024 CLINICAL INDICATION: Female, 79 years old with history of chf, TECHNIQUE: XR chest 1V portable view(s) obtained. FINDINGS: The heart size is mildly prominent. The pulmonary vasculature is normal. Right pleural effusion and lower lobe infiltrate. Minimal pleural effusion may be present. Mild infil trates at the left base. IMPRESSION: 1. Bilateral pleural effusions larger on the right with adjacent bilateral mild infiltrates.: Atelect asis. Findings similar to comparison [facility], , 05/13/2024 10:41 AM
--- NOTE | 2024-05-14 10:21 | P.DS ---
Providers Date of admission: 05/11/24 16:43 Expected date of discharge: 05/13/24 Attending physician: Kip Marie MD Consults: 05/12/24 05:31 Consult Physician Urgent Consulting Provider: Michael Shaw Consult Reason/Comments: severe michelle, chf exac Do you want consulting provider notified?: Yes 05/12/24 08:25 Consult Physician Routine Consulting Provider: Yuki Rodriguez Consult Reason/Comments: BECCA, hyperkalemia Do you want consulting provider notified?: Yes 05/12/24 12:22 Consult Physician Routine Consulting Provider: Katelynn Garrison Consult Reason/Comments: icu rx Do you want consulting provider notified?: Yes 05/12/24 12:24 Consult Physician Urgent Consulting Provider: Manuel Groves Consult Reason/Comments: ams, decreased loc, cva??? Do you want consulting provider notified?: Yes Primary care physician: [facility] Course: Preliminary cause of Renal failure, likely cardiorenal syndrome Final diagnosis Change in mental status metabolic encephalopathy, possibly secondary to acute on chronic renal failure Severe symptomatic bradycardia, status post temporary transvenous pacer placed CVA ruled out Pancytopenia of undetermined etiology Hyponatremia Hyperkalemia Elevated TSH, normal T4 and T3, history of hypothyroidism Diabetes mellitus, type II Degenerative joint disease history History of congestive heart failure, unknown EF No code Discharge disposition Patient has . According to nursing documentation, time of was 08:28 on 05/13/2024. Total time taken is greater than 35 minutes. Hospital course This is a 79-year-old female who was recently admitted with altered mental status, confusion, multiple electrolyte abnormalities with BECCA and renal failure with severe symptomatic bradycardia with heart rate in the 20s. Patient initially went to the ICU ongoing further workup although patient is no code and discuss further with family and wanted her to be comfort measures. Patient 08:28 on 05/13/2024. Please refer to other consultation notes and pulmonary street commissioner notes for further HPI. Prognosis was overall poor and extremely guarded. The impression and plan of care has been dictated by Rose King, Nurse Practitioner as directed. Dr. Jean Paul MD I have performed a history and examination and MDM of this patient, discussed the same with the dictator, and agree with the dictator's assessment and plan as written ,documented as a scribe. Based on total visit time, I have performed more than 50% of the visit. Patient Condition at Discharge: Poor Plan - Discharge Summary Discharge Rx Participant: Yes New Discharge Prescriptions: No Action amLODIPine BESYLATE/BENAZEPRIL [Lotrel 10-20 MG] 1 cap PO DAILY Pioglitazone [Actos] 30 mg PO DAILY Cholecalciferol [Vitamin D3 (25 Mcg = 1000 Iu)] 100 mcg PO DAILY hydrALAZINE HCL [Apresoline] 50 mg PO TID@,, Losartan [Cozaar] 25 mg PO DAILY #30 tab Dapagliflozin Propanediol [Farxiga] 10 mg PO DAILY #30 tab Furosemide [Lasix] 40 mg PO DAILY Discharge Medication List amLODIPine BESYLATE/BENAZEPRIL [Lotrel 10-20 MG] 1 cap PO DAILY 01/07/14 [History] Pioglitazone [Actos] 30 mg PO DAILY 04/16/24 [History] Dapagliflozin Propanediol [Farxiga] 10 mg PO DAILY #30 tab 04/23/24 [Rx] Losartan [Cozaar] 25 mg PO DAILY #30 tab 04/23/24 [Rx] Cholecalciferol [Vitamin D3 (25 Mcg = 1000 Iu)] 100 mcg PO DAILY 05/11/24 [History] Furosemide [Lasix] 40 mg PO DAILY 05/11/24 [History] hydrALAZINE HCL [Apresoline] 50 mg PO TID@,,05/11/24 [History] Follow up Appointment(s)/Referral(s): Osvaldo Sue DO [Primary Care Provider] - 1-2 days Kip Marie MD [Medical Doctor] - 1-2 days Discharge Disposition: - Preliminary Cause of Preliminary Cause of : Renal failure, cardiorenal syndrome
--- NOTE | 2024-05-21 11:17 | CDI ---
Documentation Clarification Form Date: 05/21/2024 10:50:27 AM From: Taylor Lomax Admit Date: 05/11/2024 04:43:00 PM Patient Name: Jessica Joyner Visit Number: [id number] Discharge Date: 05/13/2024 03:40:00 PM ATTENTION: The Clinical Documentation Specialists (CDI) and [facility] Coding Staff appreciate your assistance in clarifying documentation. Please respond to the clarification below the line at the bottom and electronically sign. The CDI & [facility] Coding staff will review the response and follow-up if needed. Please note: Queries are made part of the Legal Health Record. If you have any questions, please contact the author of this message via ITS. Doctor/Provider: Jeff Reaves, Acute on chronic CHF is documented in the ED note and per the previous admission there is documentation of heart failure with preserved ejection fraction in consult on 05/12 and in 05/[address] Middleton, but is not noted in subsequent documentation. Clarification is requested. History/Risk Factors: BECCA, toxic metabolic encephalopathy, cardiorenal syndrome, hyponatremia, T2DM w CKD 3b Clinical Indicators: CXR impression: Cardiomegaly, pulmonary vascularcongestionandbilateral pleural effusions. Correlate with BNP forcongestive heart failure. BNP 1030. Treatment: Lasix 20 mg IV STA (05/11), Lasix 40 mg po daily (05/12, Lasix 60 mg IV STA (05/11), Lasix 60 mg IV (05/13) Please clarify if the type and acuity of CHF: [ ] Acute and chronic diastolic CHF [ ] Other condition, please specify [ ] Unable to determine Acute and chronic diastolic CHF MTDD
--- NOTE | 2024-05-22 11:27 | CDI ---
Documentation Clarification Form Date: 05/22/2024 11:01:59 AM From: Gladys Zabala RN, CCDS Email: [email or web address] Admit Date: 05/11/2024 04:43:00 PM Patient Name: Jessica Joyner Visit Number: [id number] Discharge Date: 05/13/2024 03:40:00 PM ATTENTION: The Clinical Documentation Specialists (CDI) and [facility] Coding Staff appreciate your assistance in clarifying documentation. Please respond to the clarification below the line at the bottom and electronically sign. The CDI & [facility] Coding staff will review the response and follow-up if needed. Please note: Queries are made part of the Legal Health Record. If you have any questions, please contact the author of this message via ITS. Dr. Jeff Reaves The patient's pulse ox dropped and required supplement oxygen. Based on this information and the findings below, is there an additional diagnosis that is clinically appropriate for this patient? History/Risk Factors: DM, HTN, valvular heart disease, CHF and kidney failure. Presented with abnormal labs and found to have symptomatic bradycardia, acute CHF and acute kidney injury. S/P temporary pacemaker insertion. Clinical Indicators: 05/11 Vital signs: HR 23-33 05/12 RR: 32 05/13 RR: 14-35 05/12 Pulse oximetry: 87-94% 05/13 Pulse ox: 87-93% Per H&P Lung/Breathing assessment: Breath sounds diminished at the bases. 05/12 Pulmonary consult: "lethargic, tends to fall asleep easily, not in any respiratory distress, on 4 L nasal cannula with O2 sat of 98%. Profound bradycardia/junctional rhythm requiring pacemaker placement." Treatment: IV Lasix 20mg x1 on 05/11; IV Lasix 60mg x1 on 05/12 O2: 2LNC to 15L nonrebreather mask Is there an additional diagnosis that is clinically appropriate for this patient? [ ] Acute Hypoxic Respiratory Failure [ ] Acute Respiratory Insufficiency [ ] No additional diagnosis/not clinically significant [ ] Other Diagnosis, please specify [ ] Unable to determine No additional diagnosis/not clinically significant MTDD
== END 2024-05-13 15:40 | disposition expired | DRG 682 ==
LOC: EC 15:05 → 3SCARD 16:43 → 2SICU 05-12 08:52
PROVIDERS: ADMIT Internal Medicine; ATTEND Internal Medicine
PROC: 5A1223Z Performance of Cardiac Pacing, Continuous (ICD-10-PCS; principal; 2024-05-12 17:20)
DX: N17.9 Acute kidney failure, unspecified (principal); G92.8 Other toxic encephalopathy; I50.33 Acute on chronic diastolic (congestive) heart failure; I13.0 Hypertensive heart and chronic kidney disease with heart failure and stage 1 through stage 4 chronic kidney disease, or unspecified chronic kidney disease; D61.818 Other pancytopenia; E87.1 Hypo-osmolality and hyponatremia; Z68.41 Body mass index [BMI] 40.0-44.9, adult; Z16.24 Resistance to multiple antibiotics; Z51.5 Encounter for palliative care; Z66 Do not resuscitate; I27.29 Other secondary pulmonary hypertension; D63.1 Anemia in chronic kidney disease; D50.9 Iron deficiency anemia, unspecified; E11.22 Type 2 diabetes mellitus with diabetic chronic kidney disease; I48.91 Unspecified atrial fibrillation; C00.9 Malignant neoplasm of lip, unspecified; N18.32 Chronic kidney disease, stage 3b; F03.90 Unspecified dementia, unspecified severity, without behavioral disturbance, psychotic disturbance, mood disturbance, and anxiety; E03.9 Hypothyroidism, unspecified; E66.9 Obesity, unspecified; R00.1 Bradycardia, unspecified; E87.5 Hyperkalemia; I08.3 Combined rheumatic disorders of mitral, aortic and tricuspid valves; I95.89 Other hypotension; K21.9 Gastro-esophageal reflux disease without esophagitis; R47.81 Slurred speech; R29.6 Repeated falls; M19.90 Unspecified osteoarthritis, unspecified site; Z79.84 Long term (current) use of oral hypoglycemic drugs; Z79.899 Other long term (current) drug therapy; Z74.01 Bed confinement status; Z86.14 Personal history of Methicillin resistant Staphylococcus aureus infection; Z88.2 Allergy status to sulfonamides
CPT/HCPCS: 33211; 36415; 51702; 51798; 70450; 71045; 71046; 80051; 80053; 81001; 82533; 83735; 83880; 84145; 84439; 84443; 84481; 84484; 85025; 85610; 85730; 93005; 93308; 96361; 96365; 96375; 99285